=== PATIENT | male | born 1965 | race Caucasian/White ===

== ENCOUNTER 2016-10-30 00:24 | Emergency (ER) | payer MEDICARE, MEDICAID ==
[~2016-10-30 00:24] MED LIST: /CLON1TA PO; /DULO30CA; /MOXI40TA; /SALMDISK; ABIL2TAB; ADV250INH INH; ALBU17IN INH; ALBU17IN2 INH; AMBI10TA; AMBI10TA OR; AMBI10TA PO; AMBI12.52 PO; AMBI5TAB; AMBI6.25 PO; AMBIEN PO; AMITRIP100 PO; AMITRIP50 PO; ASPI81TA83; ATRO1OPD OU; ATROPINE OS; AUGM875T27 PO; BACI500O59 TOP; BACIPOW8 TOP; BACL10TA2; BACTROCREA TOPICALLY; CELE100C; CELE20TA OR; CLON-412 PO; CLON0.2T PO; CLONI1TA PO; DIAZ5TAB; DOXY100T; DULO1CAP3 PO; DULO30CA PO; FLON0.054; FLON1SPR; FLUT50SP; GABA-283 PO; GABA300C3 PO; GABA800T PO; GABA800T3; HABITROL2 TOPICAL; HYDR1CAP25 PO; HYDR1TAB97 PO; HYDR5TAB23 PO; HYDR7.5T38 PO; HYDROCODONE; HYDROCODONE-ACETAMIN; HYDROCODONE-APAP PD; HYDROCODONE/ACETAMIN; ISOP1SOL2 OU; KLON1TAB PO; KLON2TAB PO; LASI40TA; LYRI75CA PO; METH10TA2; METH5TAB2; METH5TAB2 OR; METHODONE; METO5TAB PO; MIRT15TA3 PO; NEUR300C; NEUR300C OR; NEUR600T OR; NEUR600T PO; NEUR800T; NEUR800T PO; NEURONTIN3 PO; NEURONTIN4 PO; NICO21DI4; NORC5TAB PO; NORCOBULK PO; NORCOTAB PO; ONDA1TAB15 PO; ONDA1TAB16 PO; PERC7.5T12 PO; PHENERGA25 PO; PRAZ2CAP PO; PRED1SUS OU; PREDNISOLONE 1% OU; PREDOPD OU; PROA1AER IN; PROZ10CA; QUET1TAB8 PO; QUET300T PO; QUET30TA; SERO1TAB2 PO; SERO200T PO; SERO200T2 PO; SERO400T OR; SPIR1CAP INH; TESS100C PO; TIOT18INH INH; VALI2TAB; VALI5TAB; VICO5TAB; VICO5TAB OR; VICODIN; VICODIN OR; VICODIN PO; VIOXX50 PO; VIST25CA PO; VIST50CA PO; XANA0.25 OR; XANA0.5T OR; ZOFR20TA PO; [UNRECOGNIZED DRUG - CODE] OU; ambien PO
[2016-10-30] MEDS ORDERED: cloNIDine 0.2 MG TAB As Ordered ONE (01:06)
[2016-10-30] MEDS ORDERED: GABAPENTIN 100 MG CAP As Ordered ONE (01:06)
--- NOTE | 2016-10-30 01:21 | EDDOCDS ---
Nurse's Notes [facility] Name: Gavin Marvin Age: 51 yrs Sex: Male : 1965 Arrival Date: 10/30/2016 Time: 00:24 Bed Triage 1 Private MD: Diagnosis: Radiculopathy, lumbosacral region Presentation: 10/30 00:32 Presenting complaint: Patient states: Patient reports needing to get clonidine and jmb gabapentin. Patient reports that his appointment is not until the and doesn't have anyone to fill his scripts. Adult Sepsis Screening: The patient does not have new or worsening altered mentation. Patient's respiratory rate is less than 22. Systolic blood pressure is greater than 100. Adult Sepsis Screening: Patient has a qSOFA score of 0- Negative Sepsis Screen. Suicide/Homicide risk assessment- the patient denies having any suicidal and/or homicidal ideations and does not present with any other emotional, behavioral or mental health complaints. Status: Patient is not a adult services librarian or dependent. Transition of care: patient was not received from another setting of care. 00:32 Acuity: TIMUR Level 5 jmb 00:32 Method Of Arrival: Walkin/Carried/Asstd jmb Triage Assessment: 00:33 General: Appears in no apparent distress. Pain: Denies pain. HIV screening NA for this jmb visit Offered previously. Neurological: Level of Consciousness is awake, alert, obeys commands, Oriented to person, place, time. Respiratory: Airway is patent Respiratory effort is even, unlabored, Respiratory pattern is regular, symmetrical. GI: Abdomen is non- distended. Derm: Skin is pink, warm & dry. Musculoskeletal: Range of motion intact in all extremities. Historical: - Allergies: Toradol (Hives); Tramadol HCl (Hives); - Home Meds: 1. clonidine HCl 0.2 mg Oral tab 1 tab 2 times per day 2. gabapentin 400 mg Oral cap 800 mg twice a day - PMHx: "seizures"; Chronic Back pain; COPD; Depression; Substance Abuse; - PSHx: back surgery; - Social history: Smoking status: Patient uses tobacco products, heavy tobacco smoker. No barriers to communication noted, The patient speaks fluent Faroese, Speaks appropriately for age. - Family history: Not pertinent. - : The pt / caregiver states he / she is not on anticoagulants. Home medication list is obtained from the patient. - Exposure Risk Screening:: None identified. Screenin:11 Screening information is obtained from the patient. Fall risk: At risk due to apparent jmb chemical impairment, Patient smells of etoh, gait unsteady.. Assistance ADL's: requires no assistance with activities of daily living. Abuse/DV Screen: The patient / caregiver reports he/she is: not in a situation that causes fear, pain or injury. Nutritional screening: No deficits noted. Advance Directives: Currently, there is no health care proxy. There is no active DNR order. There is no living will. There is no Power of Assessment Nurse Practitioner. home support is adequate. Assessment: 01:11 General: Appears Patient instructed on discharge instructions. Patient asked if there jmb were any questions regarding discharge, patient stated no. Patient signed discharge instructions, threw his copy in garbage and walked out door. . Vital Signs: 00:33 Weight 81.65 kg (R); Height 5 ft. 4 in. (162.56 cm) (R); Pain 0/10; jmb 00:36 BP 106 / 80; Pulse 127; Resp 20; Temp 97.1; Pulse Ox 94% on R/A; jmb 01:11 BP 110 / 80; Pulse 100; Resp 20; Temp 97.0(O); Pulse Ox 95% on R/A; Pain 0/10; jmb 00:33 Body Mass Index 30.90 (81.65 kg, 162.56 cm) [facility] Vitals: 00:33 Log In Time: October 30, 2016 at 00:34. [facility] ED Course: 00:28 Patient visited by Dianne Peñaloza. gjb 00:28 Patient moved to Waiting gjb 00:32 Triage Initiated jmb 00:47 Kit Lin PA is PHCP. mo1 00:47 Ja Martinez DO is Attending Physician. mo1 00:55 Patient moved to Triage 1 jmb 00:58 Kit Lin PA is PHCP. mo1 00:58 Ja Martinez DO is Attending Physician. mo1 01:04 Patient visited by Kit Lin PA. mo1 01:04 [facility] is Referral Physician. mo1 01:11 The patient / caregiver is instructed regarding the plan of care and ED course. jmb 01:11 No IV's were initiated during this patient's visit. No procedures done that require jmb assistance. Administered Medications: 01:10 Drug: Gabapentin 400 mg [gabapentin 100 mg capsule (4 caps)] Route: PO; jmb 01:11 Drug: cloNIDine 0.2 mg [clonidine HCl 0.2 mg tablet (1 tabs)] Route: PO; jmb Order Results: There are currently no results for this order. Outcome: 01:05 Discharge ordered by Provider. mo1 01:11 Discharge Assessment: Patient awake, alert and oriented x 3. No cognitive and/or jmb functional deficits noted. Patient verbalized understanding of disposition instructions. Patient awake and alert. obeys commands, Oriented to person, place and time. Patient verbalized understanding of disposition instructions. Patient has no functional deficits. patient administered narcotics - no. The following High Risk Discharge criteria are identified: None. Discharged to home ambulatory. Condition: stable. Discharge instructions given to patient, Instructed on discharge instructions, follow up and referral plans. Demonstrated understanding of instructions, Pt was receptive of discharge instructions/ teaching. No special radiology studies were completed. Property sent home with patient. 01:21 Patient left the ED. kimmieb Signatures: Kit Lin PA PA mo1 Carlo Cassidy,RN RN Dianne Stephenson MTDD
--- NOTE | 2016-10-30 01:21 | EDDOCDS ---
Physician Documentation [facility] Name: Gavin Marvin Age: 51 yrs Sex: Male : 1965 Arrival Date: 10/30/2016 Time: 00:24 Bed Triage 1 Private MD: Disposition: 10/30/16 01:05 Discharged to Home/Self Care. Impression: Radiculopathy, lumbosacral region. - Condition is Stable. - Discharge Instructions: Hypertension, Lumbosacral Radiculopathy. - Medication Reconciliation, Local Pharmacy Hours form. - Follow up: [facility]; When: Call to arrange an appointment; Reason: Recheck today's complaints, Continuance of care. - Problem is new. - Symptoms are unchanged. Historical: - Allergies: Toradol (Hives); Tramadol HCl (Hives); - Home Meds: 1. clonidine HCl 0.2 mg Oral tab 1 tab 2 times per day 2. gabapentin 400 mg Oral cap 800 mg twice a day - PMHx: "seizures"; Chronic Back pain; COPD; Depression; Substance Abuse; - PSHx: back surgery; - Social history: Smoking status: Patient uses tobacco products, heavy tobacco smoker. No barriers to communication noted, The patient speaks fluent Scottish, Speaks appropriately for age. - Family history: Not pertinent. - : The pt / caregiver states he / she is not on anticoagulants. Home medication list is obtained from the patient. - Exposure Risk Screening:: None identified. Vital Signs: 10/30 00:33 Weight 81.65 kg / 180.01 lbs (R); Height 5 ft. 4 in. (162.56 cm) (R); Pain 0/10; jmb 00:36 BP 106 / 80; Pulse 127; Resp 20; Temp 97.1; Pulse Ox 94% on R/A; jmb 01:11 BP 110 / 80; Pulse 100; Resp 20; Temp 97.0(O); Pulse Ox 95% on R/A; Pain 0/10; jmb 00:33 Body Mass Index 30.90 (81.65 kg, 162.56 cm) jm MDM: 01:03 cloNIDine 0.2 mg PO once ordered. mo1 01:03 Gabapentin 400 mg PO once ordered. mo1 01:13 Financial registration complete. [facility] Administered Medications: 01:10 Drug: Gabapentin 400 mg [gabapentin 100 mg capsule (4 caps)] Route: PO; jade 01:11 Drug: cloNIDine 0.2 mg [clonidine HCl 0.2 mg tablet (1 tabs)] Route: PO; jade Signatures: Kit Lin PA PA mo1 Carlo Cassidy RN RN Gita Parra [facility] MTDD
--- NOTE | 2016-11-01 02:22 | EDDOCDS ---
Physician Documentation [facility] Name: Gavin Marvin Age: 51 yrs Sex: Male : 1965 Arrival Date: 10/30/2016 Time: 00:24 Bed Triage 1 Private MD: Disposition: 10/30/16 01:05 Discharged to Home/Self Care. Impression: Radiculopathy, lumbosacral region. - Condition is Stable. - Discharge Instructions: Hypertension, Lumbosacral Radiculopathy. - Medication Reconciliation, Local Pharmacy Hours form. - Follow up: [facility]; When: Call to arrange an appointment; Reason: Recheck today's complaints, Continuance of care. - Problem is new. - Symptoms are unchanged. Historical: - Allergies: Toradol (Hives); Tramadol HCl (Hives); - Home Meds: 1. clonidine HCl 0.2 mg Oral tab 1 tab 2 times per day 2. gabapentin 400 mg Oral cap 800 mg twice a day - PMHx: "seizures"; Chronic Back pain; COPD; Depression; Substance Abuse; - PSHx: back surgery; - Social history: Smoking status: Patient uses tobacco products, heavy tobacco smoker. No barriers to communication noted, The patient speaks fluent Moldovan, Speaks appropriately for age. - Family history: Not pertinent. - : The pt / caregiver states he / she is not on anticoagulants. Home medication list is obtained from the patient. - Exposure Risk Screening:: None identified. Vital Signs: 10/30 00:33 Weight 81.65 kg / 180.01 lbs (R); Height 5 ft. 4 in. (162.56 cm) (R); Pain 0/10; jmb 00:36 BP 106 / 80; Pulse 127; Resp 20; Temp 97.1; Pulse Ox 94% on R/A; jmb 01:11 BP 110 / 80; Pulse 100; Resp 20; Temp 97.0(O); Pulse Ox 95% on R/A; Pain 0/10; jmb 00:33 Body Mass Index 30.90 (81.65 kg, 162.56 cm) [facility] MDM: 01:03 cloNIDine 0.2 mg PO once ordered. mo1 01:03 Gabapentin 400 mg PO once ordered. mo1 01:13 Financial registration complete. [facility] 01:38 [facility] Payment Agreement was scanned into [employer] and attached to record. [facility] 10/31 09:51 T-Sheet-- Draft Copy was scanned into [employer] and attached to record. gb Administered Medications: 10/30 01:10 Drug: Gabapentin 400 mg [gabapentin 100 mg capsule (4 caps)] Route: PO; jade 01:11 Drug: cloNIDine 0.2 mg [clonidine HCl 0.2 mg tablet (1 tabs)] Route: PO; jade Signatures: Dalia Brambila, Ruddy Reg gb Kit Lin PA PA mo1 Carlo Cassidy,BRUCE RN Gita Parra [facility] The chart was reviewed and I authenticate all verbal orders and agree with the evaluation and treatment provided.Attachments: 01:38 [facility] Payment Agreement [facility] 10/31 09:51 T-Sheet-- Draft Copy gb Chart Complete MTDD
--- NOTE | 2016-11-01 02:22 | EDDOCDS ---
Physician Documentation [facility] Name: Gavin Marvin Age: 51 yrs Sex: Male : 1965 Arrival Date: 10/30/2016 Time: 00:24 Bed Triage 1 Private MD: Disposition: 10/30/16 01:05 Discharged to Home/Self Care. Impression: Radiculopathy, lumbosacral region. - Condition is Stable. - Discharge Instructions: Hypertension, Lumbosacral Radiculopathy. - Medication Reconciliation, Local Pharmacy Hours form. - Follow up: [facility]; When: Call to arrange an appointment; Reason: Recheck today's complaints, Continuance of care. - Problem is new. - Symptoms are unchanged. Historical: - Allergies: Toradol (Hives); Tramadol HCl (Hives); - Home Meds: 1. clonidine HCl 0.2 mg Oral tab 1 tab 2 times per day 2. gabapentin 400 mg Oral cap 800 mg twice a day - PMHx: "seizures"; Chronic Back pain; COPD; Depression; Substance Abuse; - PSHx: back surgery; - Social history: Smoking status: Patient uses tobacco products, heavy tobacco smoker. No barriers to communication noted, The patient speaks fluent South Korean, Speaks appropriately for age. - Family history: Not pertinent. - : The pt / caregiver states he / she is not on anticoagulants. Home medication list is obtained from the patient. - Exposure Risk Screening:: None identified. Vital Signs: 10/30 00:33 Weight 81.65 kg / 180.01 lbs (R); Height 5 ft. 4 in. (162.56 cm) (R); Pain 0/10; jmb 00:36 BP 106 / 80; Pulse 127; Resp 20; Temp 97.1; Pulse Ox 94% on R/A; jmb 01:11 BP 110 / 80; Pulse 100; Resp 20; Temp 97.0(O); Pulse Ox 95% on R/A; Pain 0/10; jmb 00:33 Body Mass Index 30.90 (81.65 kg, 162.56 cm) [facility] MDM: 01:03 cloNIDine 0.2 mg PO once ordered. mo1 01:03 Gabapentin 400 mg PO once ordered. mo1 01:13 Financial registration complete. [facility] 01:38 [facility] Payment Agreement was scanned into [employer] and attached to record. [facility] 10/31 09:51 T-Sheet-- Draft Copy was scanned into [employer] and attached to record. gb Administered Medications: 10/30 01:10 Drug: Gabapentin 400 mg [gabapentin 100 mg capsule (4 caps)] Route: PO; jade 01:11 Drug: cloNIDine 0.2 mg [clonidine HCl 0.2 mg tablet (1 tabs)] Route: PO; jade Signatures: Dalia Brambila, Ruddy Reg gb Kit Lin PA PA mo1 Carlo Cassidy,BRUCE RN Gita Parra [facility] The chart was reviewed and I authenticate all verbal orders and agree with the evaluation and treatment provided.Attachments: 01:38 [facility] Payment Agreement [facility] 10/31 09:51 T-Sheet-- Draft Copy gb Chart Complete MTDD
--- NOTE | 2016-11-01 02:22 | EDDOCDS ---
Nurse's Notes [facility] Name: Gavin Marvin Age: 51 yrs Sex: Male : 1965 Arrival Date: 10/30/2016 Time: 00:24 Bed Triage 1 Private MD: Diagnosis: Radiculopathy, lumbosacral region Presentation: 10/30 00:32 Presenting complaint: Patient states: Patient reports needing to get clonidine and jmb gabapentin. Patient reports that his appointment is not until the and doesn't have anyone to fill his scripts. Adult Sepsis Screening: The patient does not have new or worsening altered mentation. Patient's respiratory rate is less than 22. Systolic blood pressure is greater than 100. Adult Sepsis Screening: Patient has a qSOFA score of 0- Negative Sepsis Screen. Suicide/Homicide risk assessment- the patient denies having any suicidal and/or homicidal ideations and does not present with any other emotional, behavioral or mental health complaints. Status: Patient is not a loan services professional or dependent. Transition of care: patient was not received from another setting of care. 00:32 Acuity: TIMUR Level 5 jmb 00:32 Method Of Arrival: Walkin/Carried/Asstd jmb Triage Assessment: 00:33 General: Appears in no apparent distress. Pain: Denies pain. HIV screening NA for this jmb visit Offered previously. Neurological: Level of Consciousness is awake, alert, obeys commands, Oriented to person, place, time. Respiratory: Airway is patent Respiratory effort is even, unlabored, Respiratory pattern is regular, symmetrical. GI: Abdomen is non- distended. Derm: Skin is pink, warm & dry. Musculoskeletal: Range of motion intact in all extremities. Historical: - Allergies: Toradol (Hives); Tramadol HCl (Hives); - Home Meds: 1. clonidine HCl 0.2 mg Oral tab 1 tab 2 times per day 2. gabapentin 400 mg Oral cap 800 mg twice a day - PMHx: "seizures"; Chronic Back pain; COPD; Depression; Substance Abuse; - PSHx: back surgery; - Social history: Smoking status: Patient uses tobacco products, heavy tobacco smoker. No barriers to communication noted, The patient speaks fluent Albanian, Speaks appropriately for age. - Family history: Not pertinent. - : The pt / caregiver states he / she is not on anticoagulants. Home medication list is obtained from the patient. - Exposure Risk Screening:: None identified. Screenin:11 Screening information is obtained from the patient. Fall risk: At risk due to apparent jmb chemical impairment, Patient smells of etoh, gait unsteady.. Assistance ADL's: requires no assistance with activities of daily living. Abuse/DV Screen: The patient / caregiver reports he/she is: not in a situation that causes fear, pain or injury. Nutritional screening: No deficits noted. Advance Directives: Currently, there is no health care proxy. There is no active DNR order. There is no living will. There is no Power of Cutlery Grinder. home support is adequate. Assessment: 01:11 General: Appears Patient instructed on discharge instructions. Patient asked if there jmb were any questions regarding discharge, patient stated no. Patient signed discharge instructions, threw his copy in garbage and walked out door. . Vital Signs: 00:33 Weight 81.65 kg (R); Height 5 ft. 4 in. (162.56 cm) (R); Pain 0/10; jmb 00:36 BP 106 / 80; Pulse 127; Resp 20; Temp 97.1; Pulse Ox 94% on R/A; jmb 01:11 BP 110 / 80; Pulse 100; Resp 20; Temp 97.0(O); Pulse Ox 95% on R/A; Pain 0/10; jmb 00:33 Body Mass Index 30.90 (81.65 kg, 162.56 cm) [facility] Vitals: 00:33 Log In Time: October 30, 2016 at 00:34. [facility] ED Course: 00:28 Patient visited by Dianne Peñaloza. gjb 00:28 Patient moved to Waiting gjb 00:32 Triage Initiated jmb 00:47 Kit Lin PA is PHCP. mo1 00:47 Ja Martinez DO is Attending Physician. mo1 00:55 Patient moved to Triage 1 jmb 00:58 Kit Lin PA is PHCP. mo1 00:58 Ja Martinez DO is Attending Physician. mo1 01:04 Patient visited by Kit Lin PA. mo1 01:04 [facility] is Referral Physician. mo1 01:11 The patient / caregiver is instructed regarding the plan of care and ED course. jmb 01:11 No IV's were initiated during this patient's visit. No procedures done that require jmb assistance. 01:38 [facility] Payment Agreement was scanned into [employer] and attached to record. [facility] 10/31 09:51 T-Sheet-- Draft Copy was scanned into [employer] and attached to record. gb Administered Medications: 10/30 01:10 Drug: Gabapentin 400 mg [gabapentin 100 mg capsule (4 caps)] Route: PO; jmb 01:11 Drug: cloNIDine 0.2 mg [clonidine HCl 0.2 mg tablet (1 tabs)] Route: PO; jmb Order Results: There are currently no results for this order. Outcome: 01:05 Discharge ordered by Provider. mo1 01:11 Discharge Assessment: Patient awake, alert and oriented x 3. No cognitive and/or jmb functional deficits noted. Patient verbalized understanding of disposition instructions. Patient awake and alert. obeys commands, Oriented to person, place and time. Patient verbalized understanding of disposition instructions. Patient has no functional deficits. patient administered narcotics - no. The following High Risk Discharge criteria are identified: None. Discharged to home ambulatory. Condition: stable. Discharge instructions given to patient, Instructed on discharge instructions, follow up and referral plans. Demonstrated understanding of instructions, Pt was receptive of discharge instructions/ teaching. No special radiology studies were completed. Property sent home with patient. 01:21 Patient left the ED. kimmieb Signatures: Dalia Brambila, Reg Reg gb Kit Lin PA PA mo1 Carlo Cassidy,RN Gita Mohan [facility] Dianne Peñaloza Chart Complete MTDD
== END 2016-10-30 01:21 | disposition home or self-care (01) ==
LOC: M ED 00:24
DX: Z76.0 Encounter for issue of repeat prescription (principal); R56.9 Unspecified convulsions; G89.29 Other chronic pain; M54.9 Dorsalgia, unspecified; J44.9 Chronic obstructive pulmonary disease, unspecified; F32.9 Major depressive disorder, single episode, unspecified; F19.10 Other psychoactive substance abuse, uncomplicated; Z72.0 Tobacco use; Z79.899 Other long term (current) drug therapy; Z88.5 Allergy status to narcotic agent

== ENCOUNTER 2016-11-13 18:53 | Emergency (ER) | payer MEDICARE, MEDICAID ==
[~2016-11-13 18:53] MED LIST changes: +HYDR-3713 PO; -HYDR1TAB97 PO
[2016-11-13] MEDS ORDERED: AUGMENTIN 875 MG TAB As Ordered ONE (22:00)
[2016-11-13] MEDS ORDERED: METOCLOPRAMIDE 10 MG TAB As Ordered ONE (22:00)
[2016-11-13] MEDS ORDERED: NAPROXEN 250 MG TAB As Ordered ONE (22:00)
[2016-11-13] MEDS ORDERED: ALBUTEROL 90 MCG/ACT 8GM HFA INHALER As Ordered ONE (22:10)
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
--- NOTE | 2016-11-13 22:14 | EDDOCDS ---
Physician Documentation [facility] Name: Gavin Marvin Age: 51 yrs Sex: Male : 1965 Arrival Date: 11/13/2016 Time: 18:53 Bed Triage 1 Private MD: NO PRIMARY PHYSICIAN, . Disposition: 11/13/16 21:58 Discharged to Home/Self Care. Impression: Bitten by dog - RIGHT FOREARM, LEFT BUTTOCK, Nausea with vomiting, unspecified, Headache. - Condition is Stable. - Discharge Instructions: Nausea and Vomiting, Animal Bite. - Prescriptions for Reglan 10 mg Oral Tablet - take 1 tablet by ORAL route every 6 hours As needed take 30 minutes before meals and at bedtime; 20 tablet. Augmentin 875- 125 mg Oral Tablet - take 1 tablet by ORAL route every 12 hours for 10 days; 20 tablet. - Medication Reconciliation, Local Pharmacy Hours form. - Follow up: Emergency Department; When: As needed; Reason: Worsening of conditions. Follow [facility]: [facility]; When: Call to arrange an appointment; Reason: Recheck today's complaints, Continuance of care, To establish care. - Problem is new. - Symptoms are unchanged. Historical: - Allergies: Toradol (Hives); Tramadol HCl (Hives); - Home Meds: 1. clonidine HCl 0.2 mg Oral tab 1 tab 2 times per day 2. gabapentin 400 mg Oral cap 800 mg twice a day - PMHx: "seizures"; Chronic Back pain; COPD; Depression; Substance Abuse; - PSHx: back surgery; - Social history: Smoking status: Patient uses tobacco products, heavy tobacco smoker. No barriers to communication noted, The patient speaks fluent Polish. - Family history: Not pertinent. - : The pt / caregiver states he / she is not on anticoagulants. Home medication list is obtained from the patient. - Exposure Risk Screening:: None identified. Vital Signs: 11/13 18:55 BP 165 / 97; Pulse 118; Resp 18 S; Temp 98.0; Pulse Ox 95% on R/A; Weight 81.65 kg / dd6 180.01 lbs (R); Height 5 ft. 4 in. (162.56 cm) (R); 18:55 Body Mass Index 30.90 (81.65 kg, 162.56 cm) dd6 [place] Coma Score: 19:19 Eye Response: spontaneous(4). Verbal Response: oriented(5). Motor Response: obeys rs3 commands(6). Total: 15. MDM: 21:58 Amoxicillin-Clavulanate 875 mg 1 tabs PO once ordered. dt4 21:58 Naproxen 250 mg PO once; administer with food or milk ordered. dt4 21:58 Metoclopramide 10 mg PO once ordered. dt4 22:08 Ventolin Inhaler 2 puffs Inhalation once; GIVE TO PT TO TAKE HOME, THANK YOU. ordered. dt4 Administered Medications: 22:08 Drug: Metoclopramide 10 mg [metoclopramide 10 mg tablet (1 tabs)] Route: PO; ms2 22:08 Drug: Ventolin 2 puffs [Ventolin HFA 90 mcg/actuation aerosol inhaler (2 puffs)] Route: ms2 Inhalation; 22:09 Drug: Amoxicillin-Clavulanate 1 tabs [amoxicillin 875 mg-potassium clavulanate 125 mg ms2 tablet (1 tabs)] Route: PO; 22:09 Not Given (Patient Refused): Naproxen 250 mg PO once; administer with food or milk ms2 Signatures: Guilherme FalconRN RN ms2 Neli Lala RN RN rs3 Kemi Ortiz PA-C PA-C dt4 MTDD
--- NOTE | 2016-11-15 23:14 | EDDOCDS ---
Physician Documentation [facility] Name: Gavin Marvin Age: 51 yrs Sex: Male : 1965 Arrival Date: 11/13/2016 Time: 18:53 Bed Triage 1 Private MD: NO PRIMARY PHYSICIAN, . Disposition: 11/13/16 21:58 Discharged to Home/Self Care. Impression: Bitten by dog - RIGHT FOREARM, LEFT BUTTOCK, Nausea with vomiting, unspecified, Headache. - Condition is Stable. - Discharge Instructions: Nausea and Vomiting, Animal Bite. - Prescriptions for Reglan 10 mg Oral Tablet - take 1 tablet by ORAL route every 6 hours As needed take 30 minutes before meals and at bedtime; 20 tablet. Augmentin 875- 125 mg Oral Tablet - take 1 tablet by ORAL route every 12 hours for 10 days; 20 tablet. - Medication Reconciliation, Local Pharmacy Hours form. - Follow up: Emergency Department; When: As needed; Reason: Worsening of conditions. Follow [facility]: [facility]; When: Call to arrange an appointment; Reason: Recheck today's complaints, Continuance of care, To establish care. - Problem is new. - Symptoms are unchanged. Historical: - Allergies: Toradol (Hives); Tramadol HCl (Hives); - Home Meds: 1. clonidine HCl 0.2 mg Oral tab 1 tab 2 times per day 2. gabapentin 400 mg Oral cap 800 mg twice a day - PMHx: "seizures"; Chronic Back pain; COPD; Depression; Substance Abuse; - PSHx: back surgery; - Social history: Smoking status: Patient uses tobacco products, heavy tobacco smoker. No barriers to communication noted, The patient speaks fluent Yoruba. - Family history: Not pertinent. - : The pt / caregiver states he / she is not on anticoagulants. Home medication list is obtained from the patient. - Exposure Risk Screening:: None identified. Vital Signs: 11/13 18:55 BP 165 / 97; Pulse 118; Resp 18 S; Temp 98.0; Pulse Ox 95% on R/A; Weight 81.65 kg / dd6 180.01 lbs (R); Height 5 ft. 4 in. (162.56 cm) (R); 18:55 Body Mass Index 30.90 (81.65 kg, 162.56 cm) dd6 [place] Coma Score: 19:19 Eye Response: spontaneous(4). Verbal Response: oriented(5). Motor Response: obeys rs3 commands(6). Total: 15. MDM: 21:58 Amoxicillin-Clavulanate 875 mg 1 tabs PO once ordered. dt4 21:58 Naproxen 250 mg PO once; administer with food or milk ordered. dt4 21:58 Metoclopramide 10 mg PO once ordered. dt4 22:08 Ventolin Inhaler 2 puffs Inhalation once; GIVE TO PT TO TAKE HOME, THANK YOU. ordered. dt4 22:39 [facility] Payment Agreement was scanned into [employer] and attached to record. jp5 :39 Financial registration complete. jp5 11/14 11:08 T-Sheet-- Draft Copy was scanned into [employer] and attached to record. gb Administered Medications: 11/13 22:08 Drug: Metoclopramide 10 mg [metoclopramide 10 mg tablet (1 tabs)] Route: PO; ms2 22:08 Drug: Ventolin 2 puffs [Ventolin HFA 90 mcg/actuation aerosol inhaler (2 puffs)] Route: ms2 Inhalation; 22:09 Drug: Amoxicillin-Clavulanate 1 tabs [amoxicillin 875 mg-potassium clavulanate 125 mg ms2 tablet (1 tabs)] Route: PO; 22:09 Not Given (Patient Refused): Naproxen 250 mg PO once; administer with food or milk ms2 Signatures: Guilherme Falcon RN RN ms2 Dalia Brambila, Reg Reg gb Neli Lala RN RN rs3 Kemi Ortiz PA-C PA-C dt4 Floyd Valdivia jp5 The chart was reviewed and I authenticate all verbal orders and agree with the evaluation and treatment provided.Attachments: :39 [facility] Payment Agreement jp5 11/14 11:08 T-Sheet-- Draft Copy gb Chart Complete MTDD
--- NOTE | 2016-11-15 23:14 | EDDOCDS ---
Physician Documentation [facility] Name: Gavin Marvin Age: 51 yrs Sex: Male : 1965 Arrival Date: 11/13/2016 Time: 18:53 Bed Triage 1 Private MD: NO PRIMARY PHYSICIAN, . Disposition: 11/13/16 21:58 Discharged to Home/Self Care. Impression: Bitten by dog - RIGHT FOREARM, LEFT BUTTOCK, Nausea with vomiting, unspecified, Headache. - Condition is Stable. - Discharge Instructions: Nausea and Vomiting, Animal Bite. - Prescriptions for Reglan 10 mg Oral Tablet - take 1 tablet by ORAL route every 6 hours As needed take 30 minutes before meals and at bedtime; 20 tablet. Augmentin 875- 125 mg Oral Tablet - take 1 tablet by ORAL route every 12 hours for 10 days; 20 tablet. - Medication Reconciliation, Local Pharmacy Hours form. - Follow up: Emergency Department; When: As needed; Reason: Worsening of conditions. Follow up: [facility]; When: Call to arrange an appointment; Reason: Recheck today's complaints, Continuance of care, To establish care. - Problem is new. - Symptoms are unchanged. Historical: - Allergies: Toradol (Hives); Tramadol HCl (Hives); - Home Meds: 1. clonidine HCl 0.2 mg Oral tab 1 tab 2 times per day 2. gabapentin 400 mg Oral cap 800 mg twice a day - PMHx: "seizures"; Chronic Back pain; COPD; Depression; Substance Abuse; - PSHx: back surgery; - Social history: Smoking status: Patient uses tobacco products, heavy tobacco smoker. No barriers to communication noted, The patient speaks fluent Sami. - Family history: Not pertinent. - : The pt / caregiver states he / she is not on anticoagulants. Home medication list is obtained from the patient. - Exposure Risk Screening:: None identified. Vital Signs: 11/13 18:55 BP 165 / 97; Pulse 118; Resp 18 S; Temp 98.0; Pulse Ox 95% on R/A; Weight 81.65 kg / dd6 180.01 lbs (R); Height 5 ft. 4 in. (162.56 cm) (R); 18:55 Body Mass Index 30.90 (81.65 kg, 162.56 cm) dd6 [place] Coma Score: 19:19 Eye Response: spontaneous(4). Verbal Response: oriented(5). Motor Response: obeys rs3 commands(6). Total: 15. MDM: 21:58 Amoxicillin-Clavulanate 875 mg 1 tabs PO once ordered. dt4 21:58 Naproxen 250 mg PO once; administer with food or milk ordered. dt4 21:58 Metoclopramide 10 mg PO once ordered. dt4 22:08 Ventolin Inhaler 2 puffs Inhalation once; GIVE TO PT TO TAKE HOME, THANK YOU. ordered. dt4 22:39 [facility] Payment Agreement was scanned into [employer] and attached to record. jp5 :39 Financial registration complete. jp5 11/14 11:08 T-Sheet-- Draft Copy was scanned into [employer] and attached to record. gb Administered Medications: 11/13 22:08 Drug: Metoclopramide 10 mg [metoclopramide 10 mg tablet (1 tabs)] Route: PO; ms2 22:08 Drug: Ventolin 2 puffs [Ventolin HFA 90 mcg/actuation aerosol inhaler (2 puffs)] Route: ms2 Inhalation; 22:09 Drug: Amoxicillin-Clavulanate 1 tabs [amoxicillin 875 mg-potassium clavulanate 125 mg ms2 tablet (1 tabs)] Route: PO; 22:09 Not Given (Patient Refused): Naproxen 250 mg PO once; administer with food or milk ms2 Signatures: Guilherme Falcon RN RN ms2 Dalia Brambila, Reg Reg gb Neli Lala RN RN rs3 Kemi Ortiz PA-C PA-C dt4 Floyd Valdivia jp5 The chart was reviewed and I authenticate all verbal orders and agree with the evaluation and treatment provided.Attachments: :39 [facility] Payment Agreement jp5 11/14 11:08 T-Sheet-- Draft Copy gb Chart Complete MTDD
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
== END 2016-11-13 22:13 | disposition home or self-care (01) ==
LOC: M ED 18:53
DX: S51.851A Open bite of right forearm, initial encounter (principal); S31.825A Open bite of left buttock, initial encounter; R51 Headache; R11.10 Vomiting, unspecified; W54.0XXA Bitten by dog, initial encounter; Y92.89 Other specified places as the place of occurrence of the external cause; Y93.89 Activity, other specified; Y99.8 Other external cause status; J44.9 Chronic obstructive pulmonary disease, unspecified; G40.909 Epilepsy, unspecified, not intractable, without status epilepticus; M54.9 Dorsalgia, unspecified; F17.200 Nicotine dependence, unspecified, uncomplicated; Z88.5 Allergy status to narcotic agent; Z79.899 Other long term (current) drug therapy

== ENCOUNTER 2016-11-17 15:57 | Emergency (ER) | payer MEDICARE, MEDICAID ==
[2016-11-17] MEDS ORDERED: ACETAMINOPHEN 325 MG TAB As Ordered ONE (17:30)
[2016-11-17] MEDS ORDERED: ONDANSETRON 4 MG ORAL DISINTEGRATING TAB (S0181) As Ordered ONE (17:30)
--- NOTE | 2016-11-17 17:49 | EDDOCDS ---
Physician Documentation [facility] Name: Gavin Marvin Age: 51 yrs Sex: Male : 1965 Arrival Date: 11/17/2016 Time: 15:57 Bed TR3 Private MD: NO PRIMARY PHYSICIAN, . Disposition: 11/17/16 17:31 Discharged to Home/Self Care. Impression: Postconcussional syndrome, Bitten by dog, Abrasion of right upper arm. - Condition is Stable. - Discharge Instructions: Concussion, Adult, Post-Concussion Syndrome. - Prescriptions for ZOFRAN ODT 4 mg - dissolve 1 tablet by ORAL route 4 times per day As needed do not chew, do not swallow whole; 10 tablet. - Medication Reconciliation, Local Pharmacy Hours form. - [facility]; When: Call to arrange an appointment; Reason: Recheck today's complaints, Continuance of care. - Problem is an ongoing problem. - Symptoms are unchanged. Historical: - Allergies: Toradol (Hives); Tramadol HCl (Hives); - Home Meds: 1. clonidine HCl 0.2 mg Oral tab 1 tab 2 times per day (Last dose: Unknown) 2. gabapentin 400 mg Oral cap 800 mg twice a day (Last dose: 11/17/2016) 3. Ambien Unknown Oral once daily 4. Seroquel 300 mg Oral tab 1 tab once daily 5. Zofran Oral as needed - PMHx: "seizures"; Chronic Back pain; COPD; Depression; Substance Abuse; - PSHx: back surgery; carpal tunnel repair; - Social history: Smoking status: Patient uses tobacco products, current every day smoker. No barriers to communication noted, The patient speaks fluent Maltese, Speaks appropriately for age. - Family history: Not pertinent. - : The pt / caregiver states he / she is not on anticoagulants. Home medication list is obtained from the patient, [employer] import data. - Exposure Risk Screening:: None identified. Vital Signs: 11/17 15:59 BP 115 / 75; Pulse 100; Resp 18 S; Temp 99.2(O); Pulse Ox 94% on R/A; Weight 81.65 kg / dd6 180.01 lbs (R); Height 5 ft. 4 in. (162.56 cm) (R); 15:59 Body Mass Index 30.90 (81.65 kg, 162.56 cm) dd6 MDM: 17:27 Ondansetron ODT Oral Disintegrating Tablet 4 mg PO once ordered. mo1 17:28 Acetaminophen Tablet 975 mg PO once ordered. mo1 17:35 Financial registration complete. gb Administered Medications: 17:32 Drug: Ondansetron ODT 4 mg [ondansetron 4 mg disintegrating tablet (1 tabs)] Route: PO; mcp 17:32 Drug: Acetaminophen 975 mg [acetaminophen 325 mg tablet (3 tabs)] Route: PO; [facility] Signatures: Dalia Brambila, Reg Reg gb Myara Holloway RN RN kr3 Kit Lin PA PA mo1 Peters, Mary RN [facility] MTDD
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
--- NOTE | 2016-11-19 18:50 | EDDOCDS ---
Physician Documentation [facility] Name: Gavin Marvin Age: 51 yrs Sex: Male : 1965 Arrival Date: 11/17/2016 Time: 15:57 Bed TR3 Private MD: NO PRIMARY PHYSICIAN, . Disposition: 11/17/16 17:31 Discharged to Home/Self Care. Impression: Postconcussional syndrome, Bitten by dog, Abrasion of right upper arm. - Condition is Stable. - Discharge Instructions: Concussion, Adult, Post-Concussion Syndrome. - Prescriptions for ZOFRAN ODT 4 mg - dissolve 1 tablet by ORAL route 4 times per day As needed do not chew, do not swallow whole; 10 tablet. - Medication Reconciliation, Local Pharmacy Hours form. - Follow up: [facility]; When: Call to arrange an appointment; Reason: Recheck today's complaints, Continuance of care. - Problem is an ongoing problem. - Symptoms are unchanged. Historical: - Allergies: Toradol (Hives); Tramadol HCl (Hives); - Home Meds: 1. clonidine HCl 0.2 mg Oral tab 1 tab 2 times per day (Last dose: Unknown) 2. gabapentin 400 mg Oral cap 800 mg twice a day (Last dose: 11/17/2016) 3. Ambien Unknown Oral once daily 4. Seroquel 300 mg Oral tab 1 tab once daily 5. Zofran Oral as needed - PMHx: "seizures"; Chronic Back pain; COPD; Depression; Substance Abuse; - PSHx: back surgery; carpal tunnel repair; - Social history: Smoking status: Patient uses tobacco products, current every day smoker. No barriers to communication noted, The patient speaks fluent Polish, Speaks appropriately for age. - Family history: Not pertinent. - : The pt / caregiver states he / she is not on anticoagulants. Home medication list is obtained from the patient, [employer] import data. - Exposure Risk Screening:: None identified. Vital Signs: 11/17 15:59 BP 115 / 75; Pulse 100; Resp 18 S; Temp 99.2(O); Pulse Ox 94% on R/A; Weight 81.65 kg / dd6 180.01 lbs (R); Height 5 ft. 4 in. (162.56 cm) (R); 15:59 Body Mass Index 30.90 (81.65 kg, 162.56 cm) dd6 MDM: 17:27 Ondansetron ODT Oral Disintegrating Tablet 4 mg PO once ordered. mo1 17:28 Acetaminophen Tablet 975 mg PO once ordered. mo1 17:35 Financial registration complete. gb 18: [facility] Payment Agreement was scanned into [employer] and attached to record. gb 11/18 03:18 T-Sheet-- Draft Copy was scanned into [employer] and attached to record. hs2 Administered Medications: 11/17 17:32 Drug: Ondansetron ODT 4 mg [ondansetron 4 mg disintegrating tablet (1 tabs)] Route: PO; mcp 17:32 Drug: Acetaminophen 975 mg [acetaminophen 325 mg tablet (3 tabs)] Route: PO; [facility] Signatures: Dalia Brambila, Reg Reg gb Mayra Holloway RN RN kr3 Kit Lin PA PA mo1 Izzy Torres, Reg Reg hs2 Patti Archibald RN [facility] The chart was reviewed and I authenticate all verbal orders and agree with the evaluation and treatment provided.Attachments: 18:09 [facility] Payment Agreement 11/18 03:18 T-Sheet-- Draft Copy hs2 Chart Complete MTDD
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
--- NOTE | 2016-11-19 18:50 | EDDOCDS ---
Physician Documentation [facility] Name: Gavin Marvin Age: 51 yrs Sex: Male : 1965 Arrival Date: 11/17/2016 Time: 15:57 Bed TR3 Private MD: NO PRIMARY PHYSICIAN, . Disposition: 11/17/16 17:31 Discharged to Home/Self Care. Impression: Postconcussional syndrome, Bitten by dog, Abrasion of right upper arm. - Condition is Stable. - Discharge Instructions: Concussion, Adult, Post-Concussion Syndrome. - Prescriptions for ZOFRAN ODT 4 mg - dissolve 1 tablet by ORAL route 4 times per day As needed do not chew, do not swallow whole; 10 tablet. - Medication Reconciliation, Local Pharmacy Hours form. - Follow up: [facility]; When: Call to arrange an appointment; Reason: Recheck today's complaints, Continuance of care. - Problem is an ongoing problem. - Symptoms are unchanged. Historical: - Allergies: Toradol (Hives); Tramadol HCl (Hives); - Home Meds: 1. clonidine HCl 0.2 mg Oral tab 1 tab 2 times per day (Last dose: Unknown) 2. gabapentin 400 mg Oral cap 800 mg twice a day (Last dose: 11/17/2016) 3. Ambien Unknown Oral once daily 4. Seroquel 300 mg Oral tab 1 tab once daily 5. Zofran Oral as needed - PMHx: "seizures"; Chronic Back pain; COPD; Depression; Substance Abuse; - PSHx: back surgery; carpal tunnel repair; - Social history: Smoking status: Patient uses tobacco products, current every day smoker. No barriers to communication noted, The patient speaks fluent Thai, Speaks appropriately for age. - Family history: Not pertinent. - : The pt / caregiver states he / she is not on anticoagulants. Home medication list is obtained from the patient, [employer] import data. - Exposure Risk Screening:: None identified. Vital Signs: 11/17 15:59 BP 115 / 75; Pulse 100; Resp 18 S; Temp 99.2(O); Pulse Ox 94% on R/A; Weight 81.65 kg / dd6 180.01 lbs (R); Height 5 ft. 4 in. (162.56 cm) (R); 15:59 Body Mass Index 30.90 (81.65 kg, 162.56 cm) dd6 MDM: 17:27 Ondansetron ODT Oral Disintegrating Tablet 4 mg PO once ordered. mo1 17:28 Acetaminophen Tablet 975 mg PO once ordered. mo1 17:35 Financial registration complete. gb 18: [facility] Payment Agreement was scanned into [employer] and attached to record. gb 11/18 03:18 T-Sheet-- Draft Copy was scanned into [employer] and attached to record. hs2 Administered Medications: 11/17 17:32 Drug: Ondansetron ODT 4 mg [ondansetron 4 mg disintegrating tablet (1 tabs)] Route: PO; mcp 17:32 Drug: Acetaminophen 975 mg [acetaminophen 325 mg tablet (3 tabs)] Route: PO; [facility] Signatures: Dalia Brambila, Reg Reg gb Mayra Holloway RN RN kr3 Kit Lin PA PA mo1 Izzy Torres, Reg Reg hs2 Patti Archibald RN [facility] The chart was reviewed and I authenticate all verbal orders and agree with the evaluation and treatment provided.Attachments: 18:09 [facility] Payment Agreement 11/18 03:18 T-Sheet-- Draft Copy hs2 Chart Complete MTDD
== END 2016-11-17 17:48 | disposition home or self-care (01) ==
LOC: M ED 15:57
DX: S00.81XA Abrasion of other part of head, initial encounter (principal); S40.811A Abrasion of right upper arm, initial encounter; W54.0XXA Bitten by dog, initial encounter; Y92.019 Unspecified place in single-family (private) house as the place of occurrence of the external cause; Y93.89 Activity, other specified; Y99.8 Other external cause status; F07.81 Postconcussional syndrome; R56.9 Unspecified convulsions; M54.9 Dorsalgia, unspecified; J44.9 Chronic obstructive pulmonary disease, unspecified; F32.9 Major depressive disorder, single episode, unspecified; F19.10 Other psychoactive substance abuse, uncomplicated; F17.210 Nicotine dependence, cigarettes, uncomplicated; Z79.899 Other long term (current) drug therapy; Z88.8 Allergy status to other drugs, medicaments and biological substances

== ENCOUNTER 2016-11-20 15:19 | Emergency (ER) | payer MEDICARE, MEDICAID ==
[2016-11-20] MEDS ORDERED: zolPIDEM TARTRATE 5 MG TAB As Ordered ONE (16:30)
[2016-11-20] MEDS ORDERED: NAPROXEN 250 MG TAB As Ordered ONE (16:30)
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
--- NOTE | 2016-11-20 16:48 | EDDOCDS ---
Physician Documentation [facility] Name: Gavin Marvin Age: 51 yrs Sex: Male : 1965 Arrival Date: 11/20/2016 Time: 15:19 Bed TR8 Private MD: NO PRIMARY PHYSICIAN, . Disposition: 11/20/16 16:22 Discharged to Home/Self Care. Impression: Postconcussional syndrome, Anxiety disorder, unspecified. - Condition is Stable. - Discharge Instructions: Panic Attacks, Post-Concussion Syndrome. - Prescriptions for Naprosyn 500 mg Oral Tablet - take 1 tablet by ORAL route 2 times per day take with food; 30 tablet. - Medication Reconciliation form. - Follow up: [facility]; When: Call to arrange an appointment; Reason: Recheck today's complaints, Continuance of care, To establish care. - Problem is an ongoing problem. - Symptoms are unchanged. Historical: - Allergies: Toradol (Hives); Tramadol HCl (Hives); - Home Meds: 1. Ambien Oral once daily 2. clonidine HCl 0.2 mg Oral tab 1 tab 2 times per day 3. gabapentin 400 mg Oral cap 800 mg twice a day 4. Seroquel 300 mg Oral tab 1 tab once daily 5. Zofran Oral as needed - PMHx: "seizures"; Chronic Back pain; COPD; Depression; Substance Abuse; - PSHx: back surgery; carpal tunnel repair; - Social history: No barriers to communication noted, The patient speaks fluent Yemeni, Speaks appropriately for age, Smoking status: Patient uses tobacco products, heavy tobacco smoker. - Family history: Not pertinent. - : The pt / caregiver states he / she is not on anticoagulants. Home medication list is obtained from the patient. - Exposure Risk Screening:: None identified. Vital Signs: 11/20 15:22 BP 151 / 99; Pulse 86; Resp 18; Temp 96.3; Pulse Ox 96% on R/A; Weight 81.65 kg / dd6 180.01 lbs (R); Height 5 ft. 4 in. (162.56 cm) (R); 16:44 BP 153 / 86; Pulse 78; Resp 18; Temp 97.2; Pulse Ox 94% on R/A; js15 15:22 Body Mass Index 30.90 (81.65 kg, 162.56 cm) dd6 MDM: 16:23 Zolpidem 10 mg PO once ordered. cc10 16:23 Naproxen 500 mg PO once; administer with food or milk ordered. cc10 Administered Medications: 16:37 Drug: Zolpidem 10 mg [zolpidem 5 mg tablet (2 tabs)] Route: PO; js15 16:37 Drug: Naproxen 500 mg [naproxen 250 mg tablet (2 tabs)] Route: PO; js15 Signatures: Ayanna Aguayo,RN RN jo3 Daquan Kelly, PA-C PA-C cc10 Brianda Faulkner,BRUCE RN js15 MTDD
--- NOTE | 2016-11-22 17:48 | EDDOCDS ---
Physician Documentation [facility] Name: Gavin Marvin Age: 51 yrs Sex: Male : 1965 Arrival Date: 11/20/2016 Time: 15:19 Bed TR8 Private MD: NO PRIMARY PHYSICIAN, . Disposition: 11/20/16 16:22 Discharged to Home/Self Care. Impression: Postconcussional syndrome, Anxiety disorder, unspecified. - Condition is Stable. - Discharge Instructions: Panic Attacks, Post-Concussion Syndrome. - Prescriptions for Naprosyn 500 mg Oral Tablet - take 1 tablet by ORAL route 2 times per day take with food; 30 tablet. - Medication Reconciliation form. - Follow up: [facility]; When: Call to arrange an appointment; Reason: Recheck today's complaints, Continuance of care, To establish care. - Problem is an ongoing problem. - Symptoms are unchanged. Historical: - Allergies: Toradol (Hives); Tramadol HCl (Hives); - Home Meds: 1. Ambien Oral once daily 2. clonidine HCl 0.2 mg Oral tab 1 tab 2 times per day 3. gabapentin 400 mg Oral cap 800 mg twice a day 4. Seroquel 300 mg Oral tab 1 tab once daily 5. Zofran Oral as needed - PMHx: "seizures"; Chronic Back pain; COPD; Depression; Substance Abuse; - PSHx: back surgery; carpal tunnel repair; - Social history: No barriers to communication noted, The patient speaks fluent Belgian, Speaks appropriately for age, Smoking status: Patient uses tobacco products, heavy tobacco smoker. - Family history: Not pertinent. - : The pt / caregiver states he / she is not on anticoagulants. Home medication list is obtained from the patient. - Exposure Risk Screening:: None identified. Vital Signs: 11/20 15:22 BP 151 / 99; Pulse 86; Resp 18; Temp 96.3; Pulse Ox 96% on R/A; Weight 81.65 kg / dd6 180.01 lbs (R); Height 5 ft. 4 in. (162.56 cm) (R); 16:44 BP 153 / 86; Pulse 78; Resp 18; Temp 97.2; Pulse Ox 94% on R/A; js15 15:22 Body Mass Index 30.90 (81.65 kg, 162.56 cm) dd6 MDM: 16:23 Zolpidem 10 mg PO once ordered. cc10 16:23 Naproxen 500 mg PO once; administer with food or milk ordered. cc10 16:50 [facility] Payment Agreement was scanned into [email or web address] and attached to record. [facility] 16:50 Financial registration complete. [facility] 11/21 07:55 T-Sheet-- Draft Copy was scanned into [email or web address] and attached to record. se Administered Medications: 11/20 16:37 Drug: Zolpidem 10 mg [zolpidem 5 mg tablet (2 tabs)] Route: PO; js15 16:37 Drug: Naproxen 500 mg [naproxen 250 mg tablet (2 tabs)] Route: PO; js15 Signatures: Ayanna Aguayo,RN RN caterina3 Daquan Kelly, PA-C PA-C cc10 Brianda Faulkner RN RN js15 Dianne Peñaloza Sarah [facility] The chart was reviewed and I authenticate all verbal orders and agree with the evaluation and treatment provided.Attachments: 16:50 [facility] Payment Agreement [facility] 11/21 07:55 T-Sheet-- Draft Copy [facility] Chart Complete MTDD
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
--- NOTE | 2016-11-22 17:48 | EDDOCDS ---
Physician Documentation [facility] Name: Gavin Marvin Age: 51 yrs Sex: Male : 1965 Arrival Date: 11/20/2016 Time: 15:19 Bed TR8 Private MD: NO PRIMARY PHYSICIAN, . Disposition: 11/20/16 16:22 Discharged to Home/Self Care. Impression: Postconcussional syndrome, Anxiety disorder, unspecified. - Condition is Stable. - Discharge Instructions: Panic Attacks, Post-Concussion Syndrome. - Prescriptions for Naprosyn 500 mg Oral Tablet - take 1 tablet by ORAL route 2 times per day take with food; 30 tablet. - Medication Reconciliation form. - Follow up: [facility]; When: Call to arrange an appointment; Reason: Recheck today's complaints, Continuance of care, To establish care. - Problem is an ongoing problem. - Symptoms are unchanged. Historical: - Allergies: Toradol (Hives); Tramadol HCl (Hives); - Home Meds: 1. Ambien Oral once daily 2. clonidine HCl 0.2 mg Oral tab 1 tab 2 times per day 3. gabapentin 400 mg Oral cap 800 mg twice a day 4. Seroquel 300 mg Oral tab 1 tab once daily 5. Zofran Oral as needed - PMHx: "seizures"; Chronic Back pain; COPD; Depression; Substance Abuse; - PSHx: back surgery; carpal tunnel repair; - Social history: No barriers to communication noted, The patient speaks fluent Palauan, Speaks appropriately for age, Smoking status: Patient uses tobacco products, heavy tobacco smoker. - Family history: Not pertinent. - : The pt / caregiver states he / she is not on anticoagulants. Home medication list is obtained from the patient. - Exposure Risk Screening:: None identified. Vital Signs: 11/20 15:22 BP 151 / 99; Pulse 86; Resp 18; Temp 96.3; Pulse Ox 96% on R/A; Weight 81.65 kg / dd6 180.01 lbs (R); Height 5 ft. 4 in. (162.56 cm) (R); 16:44 BP 153 / 86; Pulse 78; Resp 18; Temp 97.2; Pulse Ox 94% on R/A; js15 15:22 Body Mass Index 30.90 (81.65 kg, 162.56 cm) dd6 MDM: 16:23 Zolpidem 10 mg PO once ordered. cc10 16:23 Naproxen 500 mg PO once; administer with food or milk ordered. cc10 16:50 [facility] Payment Agreement was scanned into [employer] and attached to record. [facility] 16:50 Financial registration complete. [facility] [place] 11/21 07:55 T-Sheet-- Draft Copy was scanned into [employer] and attached to record. se Administered Medications: 11/20 16:37 Drug: Zolpidem 10 mg [zolpidem 5 mg tablet (2 tabs)] Route: PO; js15 16:37 Drug: Naproxen 500 mg [naproxen 250 mg tablet (2 tabs)] Route: PO; js15 Signatures: Ayanna Aguayo,RN RN caterina3 Daquan Kelly, PA-C PA-C cc10 Brianda Faulkner RN RN js15 Dianne Peñaloza Sarah [facility] The chart was reviewed and I authenticate all verbal orders and agree with the evaluation and treatment provided.Attachments: 16:50 [facility] Payment Agreement [facility] [place] 11/21 07:55 T-Sheet-- Draft Copy [facility] Chart Complete MTDD
== END 2016-11-20 16:47 | disposition home or self-care (01) ==
LOC: M ED 15:19
DX: F07.81 Postconcussional syndrome (principal); F41.9 Anxiety disorder, unspecified; R56.9 Unspecified convulsions; G89.29 Other chronic pain; M54.9 Dorsalgia, unspecified; J44.9 Chronic obstructive pulmonary disease, unspecified; F32.9 Major depressive disorder, single episode, unspecified; F19.10 Other psychoactive substance abuse, uncomplicated; Z72.0 Tobacco use; Z79.899 Other long term (current) drug therapy; Z88.5 Allergy status to narcotic agent

== ENCOUNTER 2016-11-26 14:19 | Inpatient (IN) | payer MEDICARE, MEDICAID ==
[~2016-11-26] VITALS: Ht 162.6 cm; Wt 73.4 kg
[2016-11-26] MEDS ORDERED: NALOXONE INJ 2 MG/2 ML SYRINGE (J2310) As Ordered ONE (14:38)
[2016-11-26 14:52] LABS: ABG BASE EXCESS 1.5 (-2.0-2.0); ABG DEVICE NASAL CANN; ABG HCO3 27.8 MEQ/L (22.0-26.0); ABG PARTIAL PRESSURE CO2 51.3 mmHg (35.0-45.0); ABG PARTIAL PRESSURE O2 68.4 mmHg (75.0-100.0); ABG STANDARD HCO3 25.7 MEQ/L (22.0-26.0); ABG TOTAL CO2 29.4 MEQ/L (22.0-29.0); ABG pH (ARTERIAL) 7.352 UNITS (7.350-7.450)
[2016-11-26 15:30] LABS: MEAN CORPUSCULAR HEMOGLOBIN 32.5 pg (27.0-33.0); MEAN CORPUSCULAR HGB CONC 33.3 g/dl (32.0-36.5); MEAN CORPUSCULAR VOLUME 97.5 fl (80.0-96.0); RED CELL DISTRIBUTION WIDTH 13.3 % (11.5-14.5); WHITE BLOOD COUNT 7.3 K/mm3 (4.0-10.0)
[2016-11-26 15:57] LABS: ALBUMIN 3.1 GM/DL (3.2-5.2); ALKALINE PHOSPHATASE 75 U/L (45-117); ALT/SGPT 28 U/L (12-78); ANION GAP 7 MEQ/L (8-16); AST/SGOT 18 U/L (15-37); BILIRUBIN,DIRECT < 0.1 MG/DL (0.0-0.2); BILIRUBIN,TOTAL 0.1 MG/DL (0.2-1.0); BLOOD UREA NITROGEN 10 MG/DL (7-18); CALCIUM LEVEL 8.7 MG/DL (8.5-10.1); CARBON DIOXIDE LEVEL 29 MEQ/L (21-32); CHLORIDE LEVEL 109 MEQ/L (98-107); CREATININE FOR GFR 0.88 MG/DL (0.70-1.30); GLOMERULAR FILTRATION RATE > 60.0 (>60); GLUCOSE, FASTING 91 MG/DL (70-105); POTASSIUM SERUM 4.6 MEQ/L (3.5-5.1); SODIUM LEVEL 145 MEQ/L (136-145); TOTAL PROTEIN 6.2 GM/DL (6.4-8.2)
[2016-11-26 18:08] LABS: AMPHETAMINES LEVEL URINE NEGATIVE (NEGATIVE); BENZODIAZEPINES URINE POSITIVE (NEGATIVE); COCAINE METABOLITE URINE NEGATIVE (NEGATIVE); CONTROL LINE INT CTR LINE PRESENT; METHADONE URINE NEGATIVE (NEGATIVE); OPIATES URINE NEGATIVE (NEGATIVE); TRICYCLIC ANTIDEPRESS URINE NEGATIVE (NEGATIVE)
[2016-11-26] MEDS ORDERED: GABA800T PO (21:57)
[2016-11-26] MEDS ORDERED: ZOFR20TA PO (21:57)
[2016-11-26] MEDS ORDERED: SUBO8MIS SL (21:57)
[2016-11-26] MEDS ORDERED: MULTIVITAMIN -ADULT INJECTION 10 ML, THIAMINE INJection 100 MG, FOLIC ACID 1 MG in NS 1... IV ONE (22:00)
[2016-11-26] MEDS ORDERED: IPRATROPIUM 0.5MG/ALBUTEROL 2.5MG INH SOL UD 3ML (DUONEB)(J7620) NEB PRN (22:00)
[2016-11-26] MEDS ORDERED: LORazepam 2 MG/ML VIAL (J2060) IM PRN (22:00)
[2016-11-26] MEDS ORDERED: ONDANSETRON 4MG/2ML VIAL (J2405) IV PRN (22:00)
[2016-11-26] MEDS ORDERED: LORazepam 2 MG/ML VIAL (J2060) IV PRN (22:30)
--- NOTE | 2016-11-26 22:40 | REPUSA ---
CT of the head Clinical history: altered mental status. Technique: Multiple axial CT images were obtained through the head without administration of contrast . Comparison: 06/17/2016 Findings: The ventricles and sulci are symmetric bilaterally. There is no evidence of acute hemorrhag e or infarct. There is no midline shift, mass effect, or extra-axial fluid collection. The osseous st ructures are unremarkable. The visualized paranasal sinuses and mastoid air cells are clear. Impression: Negative study.
--- NOTE | 2016-11-26 23:39 | HPE ---
DATE OF ADMISSION: 11/26/2016 PRIMARY CARE PROVIDER: [facility]. As per previous record, the patient sees Dr. Tavera. CHIEF COMPLAINT: Altered mental status. HISTORY OF THE PRESENT ILLNESS: History is limited secondary to patient's mental status. This is a 51-year-old male patient with underlying medical history of chronic obstructive pulmonary disease (COPD), depression, polysubstance abuse, chronic back pain, also a history of methicillin-resistant Staphylococcus aureus (MRSA) of right knee, chronic back and neck pain, depression, anxiety, umbilical hernia, insomnia. The patient is well known to the emergency room staff, has been presented persistently with substance abuse, as per documentation by emergency medical services (EMS), [facility], patient has been to pharmacy persistent falling to sleep and asked to leave but returned 30 minutes later without remembering what has been asked. As per last visit of the patient to the emergency room, which was on 11/22/2016, the patient reported that he was having spells that he was doing but does not realize what he was doing, jeancarl[place], patient does not eat much. Initially, when the patient was brought to the emergency room, patient was arousable with painful stimuli only. Arterial blood gas (ABG) was done. The patient's mental status improved. Currently, the patient is arousable to verbal stimuli, still a bit lethargic. The patient knows that he is at the hospital, knows that it is 2016 and knows his name but does not know why he is here, but does say that he was having those spells. He thinks he might have seizures. He does report a history of seizures. Denies taking any substance, although the patient has a questionable history of suicidal thoughts but patient denies any suicide attempts or depression. Denies any chest pain. Does report chronic back pain and neck pain. Denies any abdominal pain. Further history very much limited. ALLERGIES: TORADOL and TRAMADOL. PAST MEDICAL HISTORY: Chronic obstructive pulmonary disease (COPD). Depression. Substance abuse. Chronic back pain. Chronic neck pain. Umbilical hernia. Insomnia. History of methicillin-resistant Staphylococcus aureus (MRSA). PAST SURGICAL HISTORY: Spinal fusion in 2006 in [place]. History of carpal tunnel release. History of kidney surgery as a child. History of right ear surgery. SOCIAL HISTORY: Unknown if the patient is homeless or not. The patient reported 1-1/2 packs per day smoke history. Agreeable to nicotine patch. He does not have any family. The patient says he is alone. Denies alcohol use. Denies [id number] drug use, prescription drug abuse. Denies any cocaine, heroin, marijuana use. REVIEW OF SYSTEMS: Limited secondary to patient's mental status but 10-point review of systems is negative except for those mentioned in the history of the present illness. HOME MEDICATIONS: Limited secondary to patient's mental status. The patient initially stated that he does not take any medication but currently patient likely takes Ventolin every 4 hour as needed, Suboxone 8 and 2 mg sublingual twice a day, Flonase Nasal [place] daily, gabapentin 800 mg by mouth twice a day, Zofran 4 mg by mouth twice a day, Seroquel 300 mg by mouth nightly and Advair Diskus 250-50 mcg inhalation twice a day. PHYSICAL EXAMINATION: VITAL SIGNS: Blood pressure 109/67, pulse 60, respirations 18, saturation when the patient is sleeping is 87% on room air. Upon arousal, the patient's saturation went up to 93% on room air. GENERAL: Patient alert and oriented times three but lethargic, answers questions but sluggish. HEENT: Normocephalic, atraumatic. Pupils are dilated but bilaterally reactive to light. CARDIAC: Regular rate and rhythm, mild bradycardic. S1, S2. ABDOMEN: Soft, nontender, nondistended. PULMONARY: Bilaterally clear to auscultation. NEUROLOGIC: No focal deficits. Cranial nerves II-XII grossly intact. Able to move all four extremities. LABORATORY: ABG 7.35, 51.3, 68.4, 27.8. WBC 7.3, hemoglobin and hematocrit 12.1 over 36.2, platelets 524. Chemistry: Sodium 145, potassium 4.6, chloride 109, bicarbonate 29, BUN 10, creatinine 0.88. ASSESSMENT AND PLAN: This is a 51-year-old male patient with underlying medical history of polysubstance abuse, depression, chronic obstructive pulmonary disease (COPD), chronic back pain and chronic neck pain, questionable seizure disorder, admitted with altered mental status and lethargy. PROBLEMS: 1. Altered mental status and lethargy. Metabolic encephalopathy possibly secondary to polysubstance abuse. Urine toxicology appreciated, positive for benzodiazepine. Continue pulse oximetry monitoring, ABGs. Will obtain cardiac enzymes. Given past psychiatric history, will place the patient on one-to-one observation with seizure precautions, elopement precaution, hospital clothes, neurologic checks, suicide precaution and withdrawal precaution. Will consider consulting psychiatry in the morning. Monitor for withdrawal. Banana bag overnight and will place the patient on folic acid, thiamine and multivitamin tomorrow. Withholding oral medications that have sedative effect. Ativan as needed for anxiety, agitation and withdrawal. 2. Chronic obstructive pulmonary disease (COPD). The patient is currently not having any wheeze. Continue nebulizer treatment as needed. Continue Advair. Oxygen supplementation. Monitor pulse oximetry. 3. Depression. Withholding medication that has sedative effect. Unknown if the patient is suicidal or not. As of right now, the patient is a bit lethargic and very poor historian. Will reassess in the morning and consider consulting psychiatry once the patient is more awake. 4. Chronic back and neck pain. The patient is currently comfortable. Withholding oral pain medications given the sedative effect, restart as needed. 5. Polysubstance abuse. Continue to monitor Urine toxicology appreciated. Monitor for withdrawal. Ativan as needed. Social work consulted. 6. Smoking. Counseling provided. The patient is agreeable for nicotine patch. 7. Deep vein thrombosis (DVT) prophylaxis. Heparin subcutaneously. DISPOSITION PLANNING: Pending clinical improvement. Will monitor the patient overnight. Consider psychiatric consultation.
[2016-11-27] VITALS (18 sets, daily range): BP systolic 100–114; BP diastolic 61–70; O2SAT 87–96
[2016-11-27] MEDS ORDERED: IPRATROPIUM 0.5MG/ALBUTEROL 2.5MG INH SOL UD 3ML (DUONEB)(J7620) As Ordered ONE (02:05)
[2016-11-27] MEDS: IPRATROPIUM 0.5MG/ALBUTEROL 2.5MG INH SOL UD 3ML (DUONEB)(J7620) NEB SCH ×4 (02:15→20:00)
[2016-11-27 05:17] LABS: MEAN CORPUSCULAR HEMOGLOBIN 32.7 pg (27.0-33.0); MEAN CORPUSCULAR HGB CONC 33.3 g/dl (32.0-36.5); MEAN CORPUSCULAR VOLUME 98.3 fl (80.0-96.0); RED CELL DISTRIBUTION WIDTH 13.4 % (11.5-14.5); WHITE BLOOD COUNT 7.3 K/mm3 (4.0-10.0)
[2016-11-27 05:28] LABS: ANION GAP 5 MEQ/L (8-16); BLOOD UREA NITROGEN 9 MG/DL (7-18); CALCIUM LEVEL 8.5 MG/DL (8.5-10.1); CARBON DIOXIDE LEVEL 31 MEQ/L (21-32); CHLORIDE LEVEL 111 MEQ/L (98-107); CREATININE FOR GFR 0.75 MG/DL (0.70-1.30); GLOMERULAR FILTRATION RATE > 60.0 (>60); GLUCOSE, FASTING 82 MG/DL (70-105); MAGNESIUM LEVEL 1.8 MG/DL (1.8-2.4); POTASSIUM SERUM 3.9 MEQ/L (3.5-5.1); SODIUM LEVEL 147 MEQ/L (136-145)
[2016-11-27] MEDS: HEPARIN SOD (PORCINE) 5000 UNITS/ML VIAL SC SCH ×3 (06:00→22:08)
[2016-11-27] MEDS ORDERED: HEPARIN SOD (PORCINE) 5000 UNITS/ML VIAL As Ordered ONE (06:15)
[2016-11-27] MEDS: ADVAIR DISKUS 250/50 INH PWD INH SCH ×2 (08:30→23:56)
[2016-11-27] MEDS: THIAMINE 100 MG TAB PO SCH (08:31)
[2016-11-27] MEDS: MULTIVITAMINS/MINERALS THERAP 1 TAB PO SCH (08:31)
[2016-11-27] MEDS: SENOKOT S TAB PO SCH ×2 (08:32→20:54)
[2016-11-27] MEDS: FOLIC ACID 1 MG TAB PO SCH (08:32)
[2016-11-27] MEDS: NICOTINE 21MG/24HR 1 EA TRANSDERMAL TD SCH (08:32)
--- NOTE | 2016-11-27 11:11 | REP ---
PA and lateral chest: Comparisons are 09/06/2016 and 03/04/2015. There are subsegmental patchy infiltrates in the right upper lobe and in the lower lobes bilaterally as changes from the prior studies. There are no pleural effusions. No masses. There is a small stable granuloma peripherally in the right lung. I suspect a nondisplaced healing fracture posterior laterally in the right ninth rib as an interval change. Cardiac size is normal. The leslie appear enlarged compared to prior studies. Mediastinum and bony thorax are unremarkable. Signed by Kamari Berumen MD 11/27/2016 10:17 A
--- NOTE | 2016-11-27 12:57 | EDDOCDS ---
Physician Documentation [facility] Name: Gavin Marvin Age: 51 yrs Sex: Male : 1965 Arrival Date: 11/26/2016 Time: 14:19 Bed Admit Hold MD: Disposition: 11/26/16 21:31 Hospitalization ordered by Melinda Campo for Inpatient Admission. Preliminary diagnosis is Poisoning by benzodiazepines, undetermined - history of benzo abuse. - Bed requested for PCU. - Status is Inpatient Admission. hs1 - Condition is Stable. - Problem is an acute exacerbation. - Symptoms have improved. HPI: 11/26 14:45 This 51 yrs old Male presents to ER via Ambulance with complaints of Altered pc Mental Status. 14:45 The history is obtained from the patient, EMS providers. A reliable history and/or pc examination was not able to be obtained, due to the patient's level of intoxication. The patient presents with decreased mental status, decreased responsiveness, trouble concentrating, trouble ambulating. Possible causes include drug use, known BDZ and opiate abuser. The patient's baseline is described as alert and fully oriented, and walks without assistance. He was at a local pharmacy and was noticed to be stumbling, unable to stay awake, slurring his words, so staff called EMS. 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 He is not able to answer questions without repeated stimulation.. The patient has experienced similar episodes in the past, multiple times. The patient has been recently seen by Addictions clinic, with 4 RXs for 2 weeks of Suboxone in the past 2 weeks, per [facility] EMR. . Historical: - Allergies: Toradol (Hives); Tramadol HCl (Hives); - Home Meds: 1. Ambien 10 mg oral tab (Last dose: 11/25/2016) 2. clonidine HCl 0.2 mg Oral tab 1 tab 2 times per day 3. gabapentin 400 mg Oral cap 800 mg twice a day 4. Seroquel 300 mg Oral tab 1 tab once daily - PMHx: COPD; Depression; Substance Abuse; Chronic Back pain; - PSHx: back surgery; carpal tunnel repair; - The history from nurses notes was reviewed: and I agree with what is documented. - Social history: Smoking status: Patient uses tobacco products, current every day smoker. Not able to communicate due to their condition. - : The pt / caregiver states he / she is not on anticoagulants. Home medication list is obtained from [employer] import data. - Hospitalizations: : No recent hospitalization is reported. - Exposure Risk Screening:: None identified. - Immunization history:: Last tetanus immunization: up to date. - Family history: Not pertinent. - Social history:: the patient smokes cigarettes the patient drinks alcohol, the patient uses illicit drugs, including opiates, BDZs. ROS: 14:45 Unable to reliably obtain pc Exam: 14:45 General Appearance: no acute distress, lethargic. pc 14:45 EENT: ears, nose and throat normal, pharynx normal, mucous membranes moist pupils 3mm, sluggish. 14:45 Neck: supple, non-tender, no masses are appreciated. 14:45 Respiratory: breath sounds are normal, maintaining his airway, RR 14, PO 88 on RA. 14:45 CVS: regular rhythm, normal S1 and S2, no murmurs, strong peripheral pulses, normal capillary refill, the patient is bradycardic, at 56 bpm. 14:45 Abdomen: soft, non-tender, no organomegaly, normal bowel sounds. 14:45 Back: normal inspection. 14:45 Skin: skin color is normal, warm, dry. 14:45 Extremities: The extremities have a grossly normal appearance, are non-tender, without acute ROM abnormalities. 14:45 Neuro: cranial nerves normal as tested, no motor deficits, no sensory deficits, Mentation: slow to respond. Vital Signs: 14:26 BP 97 / 56 (auto/); jjr 14:28 Pulse 60 MON; Pulse Ox 89% ; jjr 14:29 BP 97 / 56; Pulse 56; Resp 14; Temp 97.1(O); Pulse Ox 92% on R/A; Weight 81.65 kg / jrd 180.01 lbs (R); Height 5 ft. 4 in. (162.56 cm); 14:35 Pulse 58 MON; Pulse Ox 91% ; jjr 14:35 BP 99 / 60 (auto/); jjr 14:41 BP 97 / 53 (auto/); jjr 14:41 Pulse 60 MON; Pulse Ox 90% ; jjr 14:54 BP 101 / 55 (auto/); jjr 14:54 Pulse 60 MON; Pulse Ox 94% on R/A; jjr 15:46 BP 112 / 62 (auto/); jjr 15:46 Pulse 56 MON; Pulse Ox 92% ; jjr 16:16 BP 111 / 71 (auto/); jjr 16:16 Pulse 58 MON; jjr 16:46 BP 103 / 68 (auto/); jjr 16:46 Pulse 50 MON; jjr 17:32 BP 78 / 52 (auto/); jjr 17:33 BP 85 / 52 (auto/); jjr 17:35 BP 86 / 52 (auto/); Pulse 50; Resp 18; Pulse Ox 92% on R/A; jjr 17:50 BP 124 / 68 (auto/); jjr 17:50 Pulse 66 MON; Pulse Ox 99% on R/A; jjr 17:57 BP 111 / 68 (auto/); jjr 17:57 Pulse 62 MON; Pulse Ox 94% ; jjr 18:04 Pulse 56 MON; Resp 18; Pulse Ox 92% on R/A; jjr 18:12 BP 109 / 67 (auto/); jjr 18:12 Pulse 60 MON; Pulse Ox 92% ; jjr 18:27 BP 98 / 67 (auto/); jjr 18:27 Pulse 58 MON; Resp 18; Pulse Ox 90% on R/A; jjr 18:42 BP 101 / 67 (auto/); jjr 18:42 Pulse 60 MON; Pulse Ox 90% ; jjr 18:57 BP 107 / 70 (auto/); jjr 18:57 Pulse 58 MON; Pulse Ox 89% ; jjr 19:12 Pulse 58 MON; Pulse Ox 89% ; cf2 19:12 BP 102 / 72 (auto/); cf2 19:27 BP 105 / 70 (auto/); cf2 19:28 Pulse 62 MON; Pulse Ox 90% ; cf2 19:42 Pulse 60 MON; Pulse Ox 90% ; cf2 19:42 BP 99 / 66 (auto/); cf2 19:57 Pulse 56 MON; Pulse Ox 89% ; cf2 19:57 BP 103 / 63 (auto/); cf2 20:12 Pulse 60 MON; Pulse Ox 87% ; cf2 20:12 BP 106 / 71 (auto/); cf2 20:27 BP 108 / 66 (auto/); cf2 20:28 Pulse 60 MON; Pulse Ox 87% ; cf2 20:42 BP 111 / 68 (auto/); cf2 20:43 Pulse 58 MON; Pulse Ox 89% ; cf2 22:12 BP 107 / 68 (auto/); cf2 22:12 Pulse 56 MON; Pulse Ox 87% ; cf2 22:12 BP 114 / 68; cf2 22:28 Pulse 50 MON; Pulse Ox 92% ; cf2 22:35 Pulse 54 MON; Pulse Ox 89% ; cf2 22:43 Pulse 52 MON; Pulse Ox 89% ; cf2 22:49 Pulse 48 MON; Pulse Ox 90% ; cf2 22:54 Pulse 52 MON; Pulse Ox 89% ; cf2 23:00 Pulse 52 MON; Pulse Ox 92% ; cf2 23:06 Pulse 54 MON; Pulse Ox 90% ; cf2 23:11 Pulse 52 MON; Pulse Ox 89% ; cf2 23:17 Pulse 54 MON; Pulse Ox 88% ; cf2 23:24 Pulse 56 MON; Pulse Ox 88% ; cf2 23:28 Pulse 50 MON; Pulse Ox 91% ; cf2 14:29 Body Mass Index 30.90 (81.65 kg, 162.56 cm) jrd 14:29 Patient was unable to verbilize a pain scale rating but indicate his neck hurt jrd MDM: 14:33 Oxygen at 2L/min via NC ordered. pc 14:33 IV Saline Lock ordered. pc 14:33 naloxone 2 mg IVP once ordered. pc 14:33 Call Respiratory ordered. pc 14:34 -Arterial Blood Gas Ordered. EDMS 14:39 Call Respiratory complete. deg 14:45 Differential Diagnosis: AMS, likely due to mixed drug abuse; hypoxemia. Plan: labs, pc meds. 15:09 -Arterial Blood Gas Reviewed. pc 15:09 Straight cath ordered. pc 15:10 Acetaminophen Level Ordered. EDMS 15:10 Basic Metabolic Profile Ordered. EDMS 15:10 Complete Blood Count Ordered. EDMS 15:10 Drug Eval Toxicology ED Only Ordered. EDMS 15:10 Ethyl Alcohol (ethanol) Ordered. EDMS 15:10 Liver Profile Ordered. EDMS 15:10 Salicylate Level Ordered. EDMS 15:10 Thyroid Stimulating Hormone Ordered. EDMS 18:00 Acetaminophen Level Reviewed. pc 18:00 Basic Metabolic Profile Reviewed. pc 18:00 Complete Blood Count Reviewed. pc 18:00 Liver Profile Reviewed. pc 18:00 Salicylate Level Reviewed. pc 18:00 Ethyl Alcohol (ethanol) Reviewed. pc 18:00 Thyroid Stimulating Hormone Reviewed. pc 18:20 Financial registration complete. gjb 18:21 Drug Eval Toxicology ED Only Reviewed. pc 18:40 [facility] Payment Agreement was scanned into [facility] and attached to record. gjb 21:29 BED REQUEST+ADM ordered. EDMS 22:07 Admission / Observation Status ordered. EDMS 22:07 CT Head without contrast Ordered. EDMS 22:07 REGULAR DIET PED PLASTIC [place] ordered. EDMS 22:08 COMPLETE BLOOD COUNT Ordered. EDMS 22:08 BASIC METABOLIC PROFILE Ordered. EDMS 22:08 MAGNESIUM LEVEL Ordered. EDMS 22:10 PHYSICAL THERAPY EVAL & TREAT ordered. EDMS 22:54 CARDIAC MARKER PANEL Ordered. EDMS 02/03 03:19 CARDIAC MARKER PANEL Ordered. EDMS 06:43 Acetaminophen Level Reviewed. mm11 06:43 Basic Metabolic Profile Reviewed. mm11 06:43 Liver Profile Reviewed. mm11 06:43 Salicylate Level Reviewed. mm11 06:43 COMPLETE BLOOD COUNT Reviewed. mm11 06:43 BASIC METABOLIC PROFILE Reviewed. mm11 06:43 CARDIAC MARKER PANEL Reviewed. mm11 06:43 Ethyl Alcohol (ethanol) Reviewed. mm11 06:43 Thyroid Stimulating Hormone Reviewed. mm11 06:43 MAGNESIUM LEVEL Reviewed. mm11 06:43 CARDIAC MARKER PANEL Reviewed. mm11 06:43 CT Head without contrast Reviewed. mm11 09:15 Chest, 2 view PA, Lat Ordered. EDMS 11:48 T-Sheet-- Draft Copy was scanned into [facility] and attached to record. gb 11:49 Radiology Report was scanned into [facility] and attached to record. gb Administered Medications: 11/26 14:40 Drug: naloxone 2 mg [naloxone 1 mg/mL injection syringe (2 mL)] Route: IVP; Site: left jjr forearm; Signatures: Dispatcher [employer] EDMS Jan Campuzano MD MD pc Murray, Denise, Internal Corrosion Specialist Unit deg Dalia Brambila, Reg Reg gb Freddie Armstrong DO DO mm11 Keila Matamoros RN RN jjr Idalia Nagel RN RN hs1 Ana Calhoun RN RN sls2 Dianne Peñaloza The chart was reviewed and I authenticate all verbal orders and agree with the evaluation and treatment provided.Corrections: (The following items were deleted from the chart) 22:53 22:21 CARDIAC MARKER PANEL ordered. EDMS EDMS 11/27 03:18 11/26 22:21 CARDIAC MARKER PANEL ordered. EDMS EDMS 11/27 11:28 11/26 22:07 ELECTROCARDIOGRAM ADULT ordered. EDLA EDLA Attachments: 18:40 [facility] Payment Agreement gjb 11/27 11:48 T-Sheet-- Draft Copy gb MTDD
--- NOTE | 2016-11-27 12:57 | EDDOCDS ---
Nurse's Notes [facility] Name: Gavin Marvin Age: 51 yrs Sex: Male : 1965 Arrival Date: 11/26/2016 Time: 14:19 Bed Admit Hold Private MD: Diagnosis: Poisoning by benzodiazepines, undetermined-history of benzo abuse Presentation: 11/26 14:22 Presenting complaint: EMS states: phoned to [facility] by [employer] pt falling asleep jjr in store asked to leave then returned 30 minutes later without remembering being asked to leave, FSBS 118. Adult Sepsis Screening: Patient has new or worsening altered mentation (1 point). Patient's respiratory rate is less than 22. Systolic blood pressure is greater than 100. Patient has a qSOFA score of 1- Negative Sepsis Screen. 14:22 Acuity: TIMUR Level 3 [facility] 14:22 Method Of Arrival: Ambulance [facility] 21:12 Suicide/Homicide risk assessment- the patient denies having any suicidal and/or cf2 homicidal ideations and does not present with any other emotional, behavioral or mental health complaints. Status: Unknown if community service officer or dependent. Transition of care: patient was not received from another setting of care. Triage Assessment: 14:31 General: Appears in no apparent distress, Behavior is drowsy. Pain: Location: back of jjr neck. HIV screening NA for this visit Offered previously. Neurological: Level of Consciousness is lethargic, Cnc Lathe Machine Operator are equal bilaterally Speech is normal. Respiratory: Airway is patent Respiratory effort is even, unlabored, Respiratory pattern is regular. Derm: No deficits noted. Historical: - Allergies: Toradol (Hives); Tramadol HCl (Hives); - Home Meds: 1. Ambien 10 mg oral tab (Last dose: 11/25/2016) 2. clonidine HCl 0.2 mg Oral tab 1 tab 2 times per day 3. gabapentin 400 mg Oral cap 800 mg twice a day 4. Seroquel 300 mg Oral tab 1 tab once daily - PMHx: COPD; Depression; Substance Abuse; Chronic Back pain; - PSHx: back surgery; carpal tunnel repair; - The history from nurses notes was reviewed: and I agree with what is documented. - Social history: Smoking status: Patient uses tobacco products, current every day smoker. Not able to communicate due to their condition. - : The pt / caregiver states he / she is not on anticoagulants. Home medication list is obtained from [employer] data. - Hospitalizations: : No recent hospitalization is reported. - Exposure Risk Screening:: None identified. - Immunization history:: Last tetanus immunization: up to date. - Family history: Not pertinent. - Social history:: the patient smokes cigarettes the patient drinks alcohol, the patient uses illicit drugs, including opiates, BDZs. Screenin:21 Fall Risk. jjr 16:10 Screening information is obtained from the patient. Fall risk: At risk due to apparent jjr cognitive impairment, The following interventions are performed due to a positive Fall Risk Screen: added to special handling. Assistance ADL's: requires no assistance with activities of daily living. Abuse/DV Screen: The patient / caregiver reports he/she is: not in a situation that causes fear, pain or injury. Nutritional screening: No deficits noted. Advance Directives: There is no active DNR order. home support is adequate. Assessment: 15:42 General: Appears in no apparent distress, pt falls asleep mid sentence will awaken to jr voice, refuses NC pulls off his face, reports pain to back of neck. General: shirt pants and socks removed to check for any medication skin patches. Respiratory: Airway is patent Respiratory effort is even, unlabored, Respiratory pattern is regular. Derm: Skin is pink, warm & dry. 17:06 General: Appears to be sleeping. will arouse to loud voice and gentle touch pt adamant jjr he does not want reddy catheter. 17:40 General: pt becomes hostile when told must have urine sample aware of refusal and jr current bp. 17:53 General: pt physically restrained by Donita Reddy and Hiral so that this jr ad writer could perform straight catheter, return of straw colored urine. 18:34 General: Appears to be sleeping. jjr 20:53 Reassessment: Patient appears in no apparent distress at this time. Patient states cf2 feeling better. Patient states symptoms have improved. Adult Sepsis Screening: The patient does not have new or worsening altered mentation. Patient's respiratory rate is less than 22. Systolic blood pressure is greater than 100. Patient has a qSOFA score of 0- Negative Sepsis Screen. Pain: Denies pain. Neurological: No deficits noted. EENT: No deficits noted. Cardiovascular: No deficits noted. Respiratory: Airway is patent Respiratory effort is even, unlabored, Respiratory pattern is regular. GI: No deficits noted. : No deficits noted. Derm: No deficits noted. Skin is pink, warm & dry. Musculoskeletal: No deficits noted. Injury Description: No known injury. 23:31 Reassessment: Patient appears in no apparent distress at this time. Patient states cf2 feeling better. Patient states symptoms have improved. Vital Signs: 14:26 BP 97 / 56 (auto/); jjr 14:28 Pulse 60 MON; Pulse Ox 89% ; jjr 14:29 BP 97 / 56; Pulse 56; Resp 14; Temp 97.1(O); Pulse Ox 92% on R/A; Weight 81.65 kg (R); jrd Height 5 ft. 4 in. (162.56 cm); 14:35 Pulse 58 MON; Pulse Ox 91% ; jjr 14:35 BP 99 / 60 (auto/); jjr 14:41 BP 97 / 53 (auto/); jjr 14:41 Pulse 60 MON; Pulse Ox 90% ; jjr 14:54 BP 101 / 55 (auto/); jjr 14:54 Pulse 60 MON; Pulse Ox 94% on R/A; jjr 15:46 BP 112 / 62 (auto/); jjr 15:46 Pulse 56 MON; Pulse Ox 92% ; jjr 16:16 BP 111 / 71 (auto/); jjr 16:16 Pulse 58 MON; jjr 16:46 BP 103 / 68 (auto/); jjr 16:46 Pulse 50 MON; jjr 17:32 BP 78 / 52 (auto/); jjr 17:33 BP 85 / 52 (auto/); jjr 17:35 BP 86 / 52 (auto/); Pulse 50; Resp 18; Pulse Ox 92% on R/A; jjr 17:50 BP 124 / 68 (auto/); jjr 17:50 Pulse 66 MON; Pulse Ox 99% on R/A; jjr 17:57 BP 111 / 68 (auto/); jjr 17:57 Pulse 62 MON; Pulse Ox 94% ; jjr 18:04 Pulse 56 MON; Resp 18; Pulse Ox 92% on R/A; jjr 18:12 BP 109 / 67 (auto/); jjr 18:12 Pulse 60 MON; Pulse Ox 92% ; jjr 18:27 BP 98 / 67 (auto/); jjr 18:27 Pulse 58 MON; Resp 18; Pulse Ox 90% on R/A; jjr 18:42 BP 101 / 67 (auto/); jjr 18:42 Pulse 60 MON; Pulse Ox 90% ; jjr 18:57 BP 107 / 70 (auto/); jjr 18:57 Pulse 58 MON; Pulse Ox 89% ; jjr 19:12 Pulse 58 MON; Pulse Ox 89% ; cf2 19:12 BP 102 / 72 (auto/); cf2 19:27 BP 105 / 70 (auto/); cf2 19:28 Pulse 62 MON; Pulse Ox 90% ; cf2 19:42 Pulse 60 MON; Pulse Ox 90% ; cf2 19:42 BP 99 / 66 (auto/); cf2 19:57 Pulse 56 MON; Pulse Ox 89% ; cf2 19:57 BP 103 / 63 (auto/); cf2 20:12 Pulse 60 MON; Pulse Ox 87% ; cf2 20:12 BP 106 / 71 (auto/); cf2 20:27 BP 108 / 66 (auto/); cf2 20:28 Pulse 60 MON; Pulse Ox 87% ; cf2 20:42 BP 111 / 68 (auto/); cf2 20:43 Pulse 58 MON; Pulse Ox 89% ; cf2 22:12 BP 107 / 68 (auto/); cf2 22:12 Pulse 56 MON; Pulse Ox 87% ; cf2 22:12 BP 114 / 68; cf2 22:28 Pulse 50 MON; Pulse Ox 92% ; cf2 22:35 Pulse 54 MON; Pulse Ox 89% ; cf2 22:43 Pulse 52 MON; Pulse Ox 89% ; cf2 22:49 Pulse 48 MON; Pulse Ox 90% ; cf2 22:54 Pulse 52 MON; Pulse Ox 89% ; cf2 23:00 Pulse 52 MON; Pulse Ox 92% ; cf2 23:06 Pulse 54 MON; Pulse Ox 90% ; cf2 23:11 Pulse 52 MON; Pulse Ox 89% ; cf2 23:17 Pulse 54 MON; Pulse Ox 88% ; cf2 23:24 Pulse 56 MON; Pulse Ox 88% ; cf2 23:28 Pulse 50 MON; Pulse Ox 91% ; cf2 14:29 Body Mass Index 30.90 (81.65 kg, 162.56 cm) jrd 14:29 Patient was unable to verbilize a pain scale rating but indicate his neck hurt jrd Vitals: 14:27 Log In Time N/A - ambulance arrival. jr ED Course: 14:20 Patient visited by Keira Iglesias, Curriculum Development Coordinator. deg 14:20 Patient moved to Waiting deg 14:21 Patient moved to 15 deg 14:22 Jan Campuzano MD is Attending Physician. pc 14:22 Patient visited by Jan Campuzano MD. pc 14:26 Triage Initiated jjr 14:29 Unable to orient pt to ED due to medical condition. Patient has correct armband on for jrd positive identification. Placed in gown. Bed in low position. Call light in reach. Side rails up X2. radiation monitor on. Pulse ox on. NIBP on. 14:30 Patient visited by Cody Matt PCA. jrd 14:39 Patient visited by Cody Matt PCA. jrd 14:47 -Arterial Blood Gas Sent. js11 15:43 The patient / caregiver is instructed regarding the plan of care and ED course. jjr 15:44 Patient visited by Keila Matamoros, BRUCE. jjr 15:44 Inserted saline lock: 20 gauge in left forearm and blood collected. Labs drawn. (by ED jjr staff). Sent per order to lab. 16:47 Patient visited by Jan Campuzano MD. pc 17:07 Patient visited by Keila Matamoros, BRUEC. jjr 17:40 Patient visited by Keila Matamoros, BRUCE. jjr 17:54 Straight cath inserted 16 Fr. Specimen obtained. returned clear yellow urine. jjr 17:55 Patient visited by Keila Matamoros, BRUCE. jjr 18:34 Patient visited by Keila Matamoros, BRUCE. jjr 18:40 [facility] Payment Agreement was scanned into [employer] and attached to record. gjb 19:02 Lilo Montoya,RN is Primary Nurse. cf2 19:02 Patient visited by Lilo Montoya RN. cf2 19:12 Attending Physician role handed off by Jan Campuzano MD mm11 19:12 Freddie Armstrong DO is Attending Physician. mm11 19:12 No procedures done that require assistance. cf2 20:08 Patient visited by Mirian Barksdale. nb2 20:39 Patient visited by Lilo Montoya RN. cf2 20:53 Patient visited by Lilo Montoya RN. cf2 21:12 Patient visited by Lilo Montoya RN. cf2 21:17 Patient visited by Lilo Montoya RN. cf2 21:31 Melinda Campo is Hospitalizing Provider. mm11 22:23 Patient moved to Admit Hold sls1 23:06 CT Head without contrast Returned. EDMS 23:19 Patient visited by Lilo Montoya RN. cf2 23:30 Patient visited by Lilo Montoya RN. cf2 23:36 Patient moved to 20 cf2 02/03 00:30 Patient moved to Admit Hold sls1 11:15 Chest, 2 view PA, Lat Returned. EDMS 11:41 Patient visited by Carmen Sen PCA. smj 11:48 T-Sheet-- Draft Copy was scanned into [employer] and attached to record. gb 11:49 Radiology Report was scanned into [employer] and attached to record. gb Administered Medications: 11/26 14:40 Drug: naloxone 2 mg [naloxone 1 mg/mL injection syringe (2 mL)] Route: IVP; Site: left jjr forearm; RT: 14:47 ABG's drawn from right radial artery allens test done and positive pressure held for 5 js11 minutes no bleeding noted specimen sent pt. tolerated well. Order Results: Lab Order: -Arterial Blood Gas; SPEC'M 11/26/16 14:41 Test: ABG pH (ARTERIAL); Value: 7.352; Range: 7.350-7.450; Units: UNITS; Status: F Test: ABG PARTIAL PRESSURE CO2; Value: 51.3; Range: 35.0-45.0; Abnormal: Above high normal; Units: mmHg; Status: F Test: ABG PARTIAL PRESSURE O2; Value: 68.4; Range: 75.0-100.0; Abnormal: Below low normal; Units: mmHg; Status: F Test: ABG TOTAL CO2; Value: 29.4; Range: 22.0-29.0; Abnormal: Above high normal; Units: MEQ/L; Status: F Test: ABG HCO3; Value: 27.8; Range: 22.0-26.0; Abnormal: Above high normal; Units: MEQ/L; Status: F Test: ABG BASE EXCESS; Value: 1.5; Range: -2.0-2.0; Status: F Test: ABG STANDARD HCO3; Value: 25.7; Range: 22.0-26.0; Units: MEQ/L; Status: F Test: ABG O2 SATURATION; Value: 92.7; Range: 95.0-99.0; Abnormal: Below low normal; Units: %; Status: F Test: ABG DEVICE; Value: NASAL JAMARI; Status: F Lab Order: Acetaminophen Level; [facility]' 11/26/16 15:18 Test: ACETAMINOPHEN LEVEL; Value: < 2.0; Range: 10.0-30.0; Abnormal: Below low normal; Units: UG/ML; Status: F Test: CPK CREATINE PHOSPHOKINASE; Range: 39-308; Units: U/L; Status: I Test: CK-MB VALUE MASS; Range: 0.0-3.6; Units: NG/ML; Status: I Test: MB/CK RELATIVE INDEX; Range: < OR =4; Status: I Test: TROPONIN I; Range: < 0.10; Units: NG/ML; Status: I Lab Order: Basic Metabolic Profile; [facility]' 11/26/16 15:18 Test: GLUCOSE, FASTING; Value: 91; Range: 70-105; Units: MG/DL; Status: F Test: BLOOD UREA NITROGEN; Value: 10; Range: 7-18; Units: MG/DL; Status: F Test: CREATININE FOR GFR; Value: 0.88; Range: 0.70-1.30; Units: MG/DL; Status: F Test: GLOMERULAR FILTRATION RATE; Value: > 60.0; Range: >60; Status: F Test: SODIUM LEVEL; Value: 145; Range: 136-145; Units: MEQ/L; Status: F Test: POTASSIUM SERUM; Value: 4.6; Range: 3.5-5.1; Units: MEQ/L; Status: F Test: CHLORIDE LEVEL; Value: 109; Range: 98-107; Abnormal: Above high normal; Units: MEQ/L; Status: F Test: CARBON DIOXIDE LEVEL; Value: 29; Range: 21-32; Units: MEQ/L; Status: F Test: ANION GAP; Value: 7; Range: 8-16; Abnormal: Below low normal; Units: MEQ/L; Status: F Test: CALCIUM LEVEL; Value: 8.7; Range: 8.5-10.1; Units: MG/DL; Status: F Test Note: ; Units are mL/min/1.73 m2 Chronic Kidney Disease Staging per NKF: Stage I & II GFR >=60 Normal to Mildly Decreased Stage III GFR 30-59 Moderately Decreased Stage IV GFR 15-29 Severely Decreased Stage V GFR <15 Very Little GFR Left ESRD GFR <15 on INTERACTIVE DESIGNER Lab Order: Complete Blood Count; [facility]' 11/26/16 15:18 Test: WHITE BLOOD COUNT; Value: 7.3; Range: 4.0-10.0; Units: K/mm3; Status: F Test: RED BLOOD COUNT; Value: 3.72; Range: 4.30-6.10; Abnormal: Below low normal; Units: M/mm3; Status: F Test: HEMOGLOBIN; Value: 12.1; Range: 14.0-18.0; Abnormal: Below low normal; Units: g/dl; Status: F Test: HEMATOCRIT; Value: 36.2; Range: 42.0-52.0; Abnormal: Below low normal; Units: %; Status: F Test: MEAN CORPUSCULAR VOLUME; Value: 97.5; Range: 80.0-96.0; Abnormal: Above high normal; Units: fl; Status: F Test: MEAN CORPUSCULAR HEMOGLOBIN; Value: 32.5; Range: 27.0-33.0; Units: pg; Status: F Test: MEAN CORPUSCULAR HGB CONC; Value: 33.3; Range: 32.0-36.5; Units: g/dl; Status: F Test: RED CELL DISTRIBUTION WIDTH; Value: 13.3; Range: 11.5-14.5; Units: %; Status: F Test: PLATELET COUNT, AUTOMATED; Value: 524; Range: 150-450; Abnormal: Above high normal; Units: k/mm3; Status: F Lab Order: Drug Eval Toxicology ED Only; SPEC'M 11/26/16 15:18 Test: AMPHETAMINES LEVEL URINE; Value: NEGATIVE; Range: NEGATIVE; Status: F Test: BARBITURATES URINE; Value: NEGATIVE; Range: NEGATIVE; Status: F Test: BENZODIAZEPINES URINE; Value: POSITIVE; Range: NEGATIVE; Abnormal: Above high normal; Status: F Test: CANNABINOIDS URINE; Value: NEGATIVE; Range: NEGATIVE; Status: F Test: COCAINE METABOLITE URINE; Value: NEGATIVE; Range: NEGATIVE; Status: F Test: METHADONE URINE; Value: NEGATIVE; Range: NEGATIVE; Status: F Test: OPIATES URINE; Value: NEGATIVE; Range: NEGATIVE; Status: F Test: TRICYCLIC ANTIDEPRESS URINE; Value: NEGATIVE; Range: NEGATIVE; Status: F Test Note: ; ALL PRESUMPTIVE POSITIVE FINDINGS ARE UNCONFIRMED NORMAL VALUES THRESHOLD IN NG/ML AMPHETAMINES 1000 METHAMPHETAMINES 1000 BARBITURATES 300 BENZODIAZEPINES 300 CANNABINOIDS (THC) 50 COCAINE METABOLITE 300 METHADONE 300 OPIATES 300 PHENCYCLIDINE 25 TRICYCLIC ANTIDEPRESSANTS 1000 RESULTS ARE FOR MEDICAL PURPOSES ONLY. ALL URINE SPECIMENS WILL BE SAVED FOR 3 DAYS. IF CONFIRMATION OF A PRESUMPTIVE POSTIVE SCREEN RESULT IS DESIRED, CALL CHEMISTRY ([phone]) AND REQUEST URINE TO BE SENT TO REFERENCE LAB. FOR A LIST OF CLOSELY RELATED COMPOUNDS PLEASE CALL THE LAB. Lab Order: Ethyl Alcohol (ethanol); SPEC'M 11/26/16 15:18 Test: ETHYL ALCOHOL (ETHANOL); Value: < 0.003; Range: 0.000-0.010; Units: %; Status: F Lab Order: Liver Profile; SPEC'M 11/26/16 15:18 Test: AST/SGOT; Value: 18; Range: 15-37; Units: U/L; Status: F Test: ALT/SGPT; Value: 28; Range: 12-78; Units: U/L; Status: F Test: ALKALINE PHOSPHATASE; Value: 75; Range: 45-117; Units: U/L; Status: F Test: BILIRUBIN,TOTAL; Value: 0.1; Range: 0.2-1.0; Abnormal: Below low normal; Units: MG/DL; Status: F Test: BILIRUBIN,DIRECT; Value: < 0.1; Range: 0.0-0.2; Units: MG/DL; Status: F Test: TOTAL PROTEIN; Value: 6.2; Range: 6.4-8.2; Abnormal: Below low normal; Units: GM/DL; Status: F Test: ALBUMIN; Value: 3.1; Range: 3.2-5.2; Abnormal: Below low normal; Units: GM/DL; Status: F Test: ALBUMIN/GLOBULIN RATIO; Value: 1.00; Range: 1.00-1.93; Status: F Lab Order: Salicylate Level; [facility] 11/26/16 15:18 Test: SALICYLATE LEVEL; Value: 2.0; Range: 5.0-30.0; Abnormal: Below low normal; Units: MG/DL; Status: F Lab Order: Thyroid Stimulating Hormone; [facility] 11/26/16 15:18 Test: THYROID STIMULATING HORMONE; Value: 1.630; Range: 0.358-3.740; Units: uIU/ML; Status: F Lab Order: COMPLETE BLOOD COUNT; [facility] 11/27/16 04:33 Test: WHITE BLOOD COUNT; Value: 7.3; Range: 4.0-10.0; Units: K/mm3; Status: F Test: RED BLOOD COUNT; Value: 3.56; Range: 4.30-6.10; Abnormal: Below low normal; Units: M/mm3; Status: F Test: HEMOGLOBIN; Value: 11.7; Range: 14.0-18.0; Abnormal: Below low normal; Units: g/dl; Status: F Test: HEMATOCRIT; Value: 35.0; Range: 42.0-52.0; Abnormal: Below low normal; Units: %; Status: F Test: MEAN CORPUSCULAR VOLUME; Value: 98.3; Range: 80.0-96.0; Abnormal: Above high normal; Units: fl; Status: F Test: MEAN CORPUSCULAR HEMOGLOBIN; Value: 32.7; Range: 27.0-33.0; Units: pg; Status: F Test: MEAN CORPUSCULAR HGB CONC; Value: 33.3; Range: 32.0-36.5; Units: g/dl; Status: F Test: RED CELL DISTRIBUTION WIDTH; Value: 13.4; Range: 11.5-14.5; Units: %; Status: F Test: PLATELET COUNT, AUTOMATED; Value: 483; Range: 150-450; Abnormal: Above high normal; Units: k/mm3; Status: F Lab Order: BASIC METABOLIC PROFILE; [facility] 11/27/16 04:33 Test: GLUCOSE, FASTING; Value: 82; Range: 70-105; Units: MG/DL; Status: F Test: BLOOD UREA NITROGEN; Value: 9; Range: 7-18; Units: MG/DL; Status: F Test: CREATININE FOR GFR; Value: 0.75; Range: 0.70-1.30; Units: MG/DL; Status: F Test: GLOMERULAR FILTRATION RATE; Value: > 60.0; Range: >60; Status: F Test: SODIUM LEVEL; Value: 147; Range: 136-145; Abnormal: Above high normal; Units: MEQ/L; Status: F Test: POTASSIUM SERUM; Value: 3.9; Range: 3.5-5.1; Units: MEQ/L; Status: F Test: CHLORIDE LEVEL; Value: 111; Range: 98-107; Abnormal: Above high normal; Units: MEQ/L; Status: F Test: CARBON DIOXIDE LEVEL; Value: 31; Range: 21-32; Units: MEQ/L; Status: F Test: ANION GAP; Value: 5; Range: 8-16; Abnormal: Below low normal; Units: MEQ/L; Status: F Test: CALCIUM LEVEL; Value: 8.5; Range: 8.5-10.1; Units: MG/DL; Status: F Test Note: ; Units are mL/min/1.73 m2 Chronic Kidney Disease Staging per NKF: Stage I & II GFR >=60 Normal to Mildly Decreased Stage III GFR 30-59 Moderately Decreased Stage IV GFR 15-29 Severely Decreased Stage V GFR <15 Very Little GFR Left ESRD GFR <15 on INTERACTIVE DESIGNER Lab Order: MAGNESIUM LEVEL; [facility]11/27/16 04:33 Test: MAGNESIUM LEVEL; Value: 1.8; Range: 1.8-2.4; Units: MG/DL; Status: F Lab Order: CARDIAC MARKER PANEL; [facility] 11/26/16 15:18 Test: CPK CREATINE PHOSPHOKINASE; Value: 155; Range: 39-308; Units: U/L; Status: F Test: CK-MB VALUE MASS; Value: 3.8; Range: 0.0-3.6; Abnormal: Above high normal; Units: NG/ML; Status: F Test: MB/CK RELATIVE INDEX; Value: 2.45; Range: < OR =4; Status: F Test: TROPONIN I; Value: < 0.02; Range: < 0.10; Units: NG/ML; Status: F Test Note: ; DIAGNOSIS CRITERIA MMB ng/ml Relative Index (RI) NON-AMI < or = 5 N/A POLLARD ZONE > 5 < or = 4 AMI > 5 > 4 Lab Order: CARDIAC MARKER PANEL; [facility] 11/27/16 04:33 Test: CPK CREATINE PHOSPHOKINASE; Value: 144; Range: 39-308; Units: U/L; Status: F Test: CK-MB VALUE MASS; Value: 3.4; Range: 0.0-3.6; Units: NG/ML; Status: F Test: MB/CK RELATIVE INDEX; Value: 2.36; Range: < OR =4; Status: F Test: TROPONIN I; Value: < 0.02; Range: < 0.10; Units: NG/ML; Status: F Test Note: ; DIAGNOSIS CRITERIA MMB ng/ml Relative Index (RI) NON-AMI < or = 5 N/A POLLARD ZONE > 5 < or = 4 AMI > 5 > 4 Radiology Order: CT Head without contrast Test: CT Head without contrast REASON FOR EXAMINATION: ams; ; CT of the head; Clinical history: altered mental status.; Technique: Multiple axial CT images were obtained through the head without administration of contrast; .; Comparison: 06/17/2016; Findings: The ventricles and sulci are symmetric bilaterally. There is no evidence of acute hemorrhag; e or infarct. There is no midline shift, mass effect, or extra-axial fluid collection. The osseous st; ructures are unremarkable. The visualized paranasal sinuses and mastoid air cells are clear.; Impression: Negative study.; ; Radiology Order: Chest, 2 view PA, Lat Test: Chest, 2 view PA, Lat REASON FOR EXAMINATION: chest congestion; PA and lateral chest:; ; Comparisons are 09/06/2016 and 03/04/2015.; ; There are subsegmental patchy infiltrates in the right upper lobe and in the; lower lobes bilaterally as changes from the prior studies.; ; There are no pleural effusions. No masses. There is a small stable granuloma; peripherally in the right lung.; ; I suspect a nondisplaced healing fracture posterior laterally in the right ninth; rib as an interval change.; ; Cardiac size is normal.; ; The leslie appear enlarged compared to prior studies.; ; Mediastinum and bony thorax are unremarkable.; ; ; Signed by; Kamari Berumen MD 11/27/2016 10:17 A; Outcome: 21:31 Decision to Hospitalize by Provider. mm11 23:31 Discharge Assessment: Patient awake, alert and oriented x 3. No cognitive and/or cf2 functional deficits noted. Patient verbalized understanding of disposition instructions. Patient awake and alert. Oriented to person, place and time. patient administered narcotics - no. The following High Risk Discharge criteria are identified: None. Admitted ER admission BRUCE Watts took report , with chart. Condition: good Condition: stable Condition: improved. CT Study completed. Property :Personal belongings accompany Pt. 11/27 12:57 Patient left the ED. hs1 Signatures: Dispatcher [employer] EDMS Jan Campuzano MD MD pc Keira Iglesias, Curriculum Development Coordinator Unit deg Dalia Brambila, Reg Reg gb Freddie Armstrong, DO mm11 Keila Matamoros RN RN jjr Sherrill, Hannah RN RN hs1 Ricki Akers js11 Esperanza Gonzales RN RN sls1 Cody Matt, COUPON COLLECTION CLERK COUPON COLLECTION CLERK jrDianne Ny Christina, RN RN cf2 Carmen Sen, COUPON COLLECTION CLERK COUPON COLLECTION CLERK Mirian Brandon2 Corrections: (The following items were deleted from the chart) 11/26 14:38 14:29 BP 97 / 56; Pulse 56bpm; Resp 14bpm; Pulse Ox 92% RA; Temp 97.1F Oral; 81.65 kg jrd Reported; Height 5 ft. 4 in.; BMI: 30.9; jrd MTDD
[2016-11-27] MEDS ORDERED: SLF 3 ML SYR IV PRN (13:45)
[2016-11-27] MEDS: ACETAMINOPHEN TAB 650MG DOSE (2X325MG) PO PRN ×2 (15:17→20:55)
[2016-11-27] MEDS: SLF 3 ML SYR IV SCH ×2 (15:43→22:09)
--- NOTE | 2016-11-27 16:45 | IPNPDOC ---
Assessment/Plan Date Seen The patient was seen on 11/27/16. Problems Problems: (1) Lethargy Status: Acute Response to Treatment: Stable (2) Overdose Status: Acute Problem Text: * positive benzos in his tox screen, (3) COPD (chronic obstructive pulmonary disease) Status: Acute (4) Depression Status: Acute (5) Substance abuse Status: Acute Plan / VTE VTE Prophylaxis Ordered?: Yes Subjective Review of Systems CC/HPI The patient is a 51-year-old male admitted with a reason for visit of Lethargy; Overdose. General: Reports: ROS Unobtainable Objective Physical Examination General Exam: Positive: No Acute Distress Eye Exam: Positive: Conjunctiva & lids normal, PERRLA Chest Exam: Positive: Clear to auscultation, Normal air movement Heart Exam: Positive: Normal S1, Normal S2, Rate Normal, Regular Rhythm, Negative: Murmurs, Rubs Abdomen Exam: Positive: Normal bowel sounds, Soft, Negative: Hepatospenomegaly, Tenderness Extremity Exam: Positive: Normal pulses, Negative: Clubbing, Cyanosis, Edema Vital Signs/I&O Vital Signs Date Time Temp Pulse Resp B/P Pulse Ox O2 Delivery O2 Flow Rate FiO2 11/27/16 13:20 94 Nasal Cannula 3.0 11/27/16 07:40 97.5 61 20 114/70 I&O- Last 24 Hours up to 6 AM 11/27/16 06:00 Intake Total 0 ml Output Total 0 ml Balance 0 ml Laboratory Data Labs 24H Laboratory Tests 2 11/27/16 04:33: Anion Gap 5L, Blood Urea Nitrogen 9, Creatinine 0.75, Sodium Level 147H, Potassium Level 3.9, Chloride Level 111H, Carbon Dioxide Level 31, Calcium Level 8.5, Total Creatine Kinase 144, Creatine Kinase MB 3.4, Creatine Kinase MB Relative Index 2.36, Glomerular Filtration Rate > 60.0, Magnesium Level 1.8, Troponin I < 0.02 CBC/BMP Laboratory Tests 11/27/16 04:33 Calcium Level 8.5, Total Creatine Kinase 144, Red Blood Count 3.56 L, Mean Corpuscular Volume 98.3 H, Mean Corpuscular Hemoglobin 32.7, Mean Corpuscular Hemoglobin Concent 33.3, Red Cell Distribution Width 13.4 ANGY GARCIA DO Nov 27, 2016 16:45
[2016-11-27] MEDS: LevoFLOXacin 750 MG TABLET PO SCH (18:21)
[2016-11-28 00:13] VITALS: BP 104/62
[2016-11-28] MEDS: IPRATROPIUM 0.5MG/ALBUTEROL 2.5MG INH SOL UD 3ML (DUONEB)(J7620) NEB SCH ×4 (02:05→19:36)
[2016-11-28 05:11] VITALS: BP 110/71
[2016-11-28] MEDS: HEPARIN SOD (PORCINE) 5000 UNITS/ML VIAL SC SCH ×3 (05:29→21:13)
[2016-11-28] MEDS: SLF 3 ML SYR IV SCH ×3 (05:29→22:00)
[2016-11-28 05:55] LABS: MEAN CORPUSCULAR HEMOGLOBIN 32.3 pg (27.0-33.0); MEAN CORPUSCULAR HGB CONC 32.3 g/dl (32.0-36.5); MEAN CORPUSCULAR VOLUME 99.9 fl (80.0-96.0); RED CELL DISTRIBUTION WIDTH 13.2 % (11.5-14.5); WHITE BLOOD COUNT 8.8 K/mm3 (4.0-10.0)
[2016-11-28 06:12] LABS: ANION GAP 7 MEQ/L (8-16); BLOOD UREA NITROGEN 9 MG/DL (7-18); CALCIUM LEVEL 8.7 MG/DL (8.5-10.1); CARBON DIOXIDE LEVEL 28 MEQ/L (21-32); CHLORIDE LEVEL 108 MEQ/L (98-107); CREATININE FOR GFR 0.83 MG/DL (0.70-1.30); GLOMERULAR FILTRATION RATE > 60.0 (>60); GLUCOSE, FASTING 79 MG/DL (70-105); MAGNESIUM LEVEL 1.8 MG/DL (1.8-2.4); POTASSIUM SERUM 3.9 MEQ/L (3.5-5.1); SODIUM LEVEL 143 MEQ/L (136-145)
[2016-11-28 08:00] VITALS: BP 101/64
[2016-11-28] MEDS: ADVAIR DISKUS 250/50 INH PWD INH SCH ×2 (08:01→19:35)
[2016-11-28] MEDS: SENOKOT S TAB PO SCH ×2 (08:28→21:13)
[2016-11-28] MEDS: MULTIVITAMINS/MINERALS THERAP 1 TAB PO SCH (08:28)
[2016-11-28] MEDS: THIAMINE 100 MG TAB PO SCH (08:28)
[2016-11-28] MEDS: NICOTINE 21MG/24HR 1 EA TRANSDERMAL TD SCH (08:28)
[2016-11-28] MEDS: FOLIC ACID 1 MG TAB PO SCH (08:28)
[2016-11-28 12:00] VITALS: BP 115/75
--- NOTE | 2016-11-28 13:56 | CR ---
DATE OF CONSULTATION: 11/28/2016 REQUESTING PROVIDER: Lise Kearns MD HISTORY OF PRESENT ILLNESS: 51-year-old male with a history of multiple inpatient psychiatric hospitalizations and significant substance dependency issues admitted to the medical floor for stabilization. According to the chart, the patient was picked up by emergency medical services (EMS) at [facility]. The patient was persistently falling asleep. His mental status worsened and when was evaluated at the emergency department, according to Dr. Campo, he was only arousable with painful stimuli. He was unable to recall the events later on when his mental status improved. During the interview today, the patient is minimizing all of the events that led to his admission. The patient is denying the use of any substance, but when he is asked of the reasons of why he cannot remember what happened or the fact that the patient was not able to be awakened in the emergency room to be evaluated, the patient is not able to give a reasonable explanation. The patient stated "if I use I am going to be kicked out of the program." His urine drugs screen is positive for benzodiazepines. Again, the patient is only focused on discharge issues and is denying any signs or symptoms of depression, suicidal ideation and wants me to believe that everything is okay and that he should be going home. The patient appears depressed with psychomotor retardation, restricted facial expression, poor soft, monotone speech. During the interview there is no evidence of psychotic symptoms. No auditory or visual hallucinations or delusions. The patient wants me to believe that he has good support and that he has been interacting well with his support system and his family. However, he is not a reliable historian. PAST MEDICAL HISTORY: The patient has been diagnosed to have chronic obstructive pulmonary disease (COPD). Chronic back pain. Umbilical hernia. History of Methicillin-resistant Staphylococcus aureus (MRSA). History of spinal fusion in 2006. History of carpal tunnel release. History of kidney surgery as a child. History of right ear surgery. PAST PSYCHIATRIC HISTORY: As stated above, the patient has a history of multiple prior psychiatric hospitalization and history of polysubstance dependency. FAMILY HISTORY: Positive for depression on the part of his mother. No history of suicide in the family. SOCIAL HISTORY: He was born and raised in [place]. Reports normal childhood without abuse or neglect. He was for 13 years. He has three children who live in [place]. He is unemployed. SUBSTANCE ABUSE HISTORY: As stated above, the patient has a very long history of polysubstance dependency. The patient reports that he is now on the "Suboxone program." LABS ON ADMISSION: His CBC showed white blood cell 7.3, red blood cells 3.72, hemoglobin 12.1, hematocrit 36.2, MCV of 97.5. CMP was unremarkable. CK-MB was 3.8. Total protein 6.2. Albumin 3.1. TSH within normal limits. UDS was positive for benzodiazepines. His ABG showed a normal pH at admission. MENTAL STATUS EXAMINATION: The patient is dressed in casual clothes. The patient is partially cooperative, but somewhat guarded. Speech is soft and monotone. He has fair eye contact. Mood is anxious and depressed. Affect is restricted and appropriate with mood. The patient is oriented, to time, place, person and situation. Concentration is fair. Thought processes are somewhat circumstantial, does not have auditory or visual hallucinations. The patient does not have paranoid, persecutory, somatic, grandiose or rastafari delusions. The patient is denying suicidal or homicidal ideation, but again, the patient is minimizing the events that led to his admission. His mental status was significantly impaired and was only arousable with painful stimuli when he arrived to the emergency room. Judgment and insight are poor. DIAGNOSIS: [place] I: Unspecified depressive disorder. Polysubstance dependence. Substance induced mood disorder. [place] II: Deferred. [place] III: Overdose on benzodiazepines. COPD. Pneumonia. Chronic back pain. Umbilical hernia. History of MRSA. RECOMMENDATIONS: Given the fact that the patient has overdosed on benzodiazepines, that he was unresponsive and only arousable with painful stimuli on arrival to the emergency department, that he is minimizing and denying the use of benzodiazepines, but cannot give a logical explanation of what happened before admission, the patient will need to be transferred to the inpatient mental health unit for continuation of the evaluation and treatment.
[2016-11-28 15:45] VITALS: BP 113/70
[2016-11-28] MEDS: LevoFLOXacin 750 MG TABLET PO SCH (17:43)
--- NOTE | 2016-11-28 20:59 | IPNPDOC ---
Assessment/Plan Date Seen The patient was seen on 11/28/16. Problems Problems: (1) Lethargy Status: Resolved Response to Treatment: Stable Problem Text: pt is medically cleared (2) Overdose Status: Acute Problem Text: * positive benzos in his tox screen, * psych consult * pt will need [facility] admission * (3) COPD (chronic obstructive pulmonary disease) Status: Chronic Problem Text: * will start pt on levaquin for 7 days (4) Depression Status: Chronic (5) Substance abuse Status: Chronic Plan / VTE VTE Prophylaxis Ordered?: Yes Subjective Review of Systems CC/HPI The patient is a 51-year-old male admitted with a reason for visit of Lethargy; Overdose. Constitutional: Denies: Chills, Fever, Malaise, Night Sweats, Weakness Objective Physical Examination General Exam: Positive: No Acute Distress Eye Exam: Positive: Conjunctiva & lids normal, PERRLA Chest Exam: Positive: Clear to auscultation, Normal air movement Heart Exam: Positive: Normal S1, Normal S2, Rate Normal, Regular Rhythm, Negative: Murmurs, Rubs Abdomen Exam: Positive: Normal bowel sounds, Soft, Negative: Hepatospenomegaly, Tenderness Extremity Exam: Positive: Normal pulses, Negative: Clubbing, Cyanosis, Edema Vital Signs/I&O Vital Signs Date Time Temp Pulse Resp B/P Pulse Ox O2 Delivery O2 Flow Rate FiO2 11/28/16 16:02 Room Air 11/28/16 15:45 95.8 62 18 113/70 94 11/27/16 16:00 3.0 I&O- Last 24 Hours up to 6 AM 11/28/16 06:00 Intake Total 2040 ml Output Total 1775 ml Balance 265 ml Laboratory Data Labs 24H Laboratory Tests 2 11/28/16 05:14: Anion Gap 7L, Blood Urea Nitrogen 9, Creatinine 0.83, Sodium Level 143, Potassium Level 3.9, Chloride Level 108H, Carbon Dioxide Level 28, Calcium Level 8.7, Glomerular Filtration Rate > 60.0, Magnesium Level 1.8 CBC/BMP Laboratory Tests 11/28/16 05:14 Calcium Level 8.7, Red Blood Count 3.89 L, Mean Corpuscular Volume 99.9 H, Mean Corpuscular Hemoglobin 32.3, Mean Corpuscular Hemoglobin Concent 32.3, Red Cell Distribution Width 13.2 ANGY GARCIA DO Nov 28, 2016 20:58
[2016-11-28] MEDS: ACETAMINOPHEN TAB 650MG DOSE (2X325MG) PO PRN (21:13)
[2016-11-28 22:00] VITALS: BP 102/61
[2016-11-29] MEDS: IPRATROPIUM 0.5MG/ALBUTEROL 2.5MG INH SOL UD 3ML (DUONEB)(J7620) NEB SCH ×4 (02:00→18:58)
[2016-11-29 06:00] VITALS: BP 119/74
[2016-11-29] MEDS: SLF 3 ML SYR IV SCH ×4 (06:00→20:27)
[2016-11-29] MEDS: HEPARIN SOD (PORCINE) 5000 UNITS/ML VIAL SC SCH ×3 (06:13→20:23)
[2016-11-29 06:34] LABS: MEAN CORPUSCULAR HEMOGLOBIN 32.7 pg (27.0-33.0); MEAN CORPUSCULAR HGB CONC 33.3 g/dl (32.0-36.5); RED CELL DISTRIBUTION WIDTH 13.8 % (11.5-14.5); WHITE BLOOD COUNT 5.5 K/mm3 (4.0-10.0)
[2016-11-29 06:47] LABS: ANION GAP 9 MEQ/L (8-16); BLOOD UREA NITROGEN 7 MG/DL (7-18); CALCIUM LEVEL 8.8 MG/DL (8.5-10.1); CARBON DIOXIDE LEVEL 27 MEQ/L (21-32); CHLORIDE LEVEL 109 MEQ/L (98-107); GLOMERULAR FILTRATION RATE > 60.0 (>60); GLUCOSE, FASTING 89 MG/DL (70-105); MAGNESIUM LEVEL 1.7 MG/DL (1.8-2.4); POTASSIUM SERUM 3.8 MEQ/L (3.5-5.1); SODIUM LEVEL 145 MEQ/L (136-145)
[2016-11-29] MEDS: ADVAIR DISKUS 250/50 INH PWD INH SCH ×2 (07:27→23:01)
[2016-11-29] MEDS ORDERED: MAG SULF 1GM/100ML (MAG RUN) 1 GM in APPROPRIATE DILUENT 1 EA IV ONE (08:00)
--- NOTE | 2016-11-29 08:02 | IPNPDOC ---
Assessment/Plan Date Seen The patient was seen on 11/29/16. Problems Problems: (1) Overdose Status: Acute Problem Text: * positive benzos in his tox screen, * psych consult, Pt will be transferred to [facility] when bed becomes available (2) Lethargy Status: Resolved Response to Treatment: Stable Problem Text: pt is medically cleared to go to [facility] (3) COPD (chronic obstructive pulmonary disease) Status: Chronic Problem Text: * continue levaquin, questionable infiltrate on xray, (4) Depression Status: Chronic (5) Substance abuse Status: Chronic Plan / VTE VTE Prophylaxis Ordered?: Yes Subjective Review of Systems CC/HPI The patient is a 51-year-old male admitted with a reason for visit of Lethargy; Overdose. Constitutional: Denies: Chills, Fever, Malaise, Night Sweats, Weakness Pulmonary: Denies: Cough, Dyspnea Cardiovascular: Denies: Chest Pain, Lt Headedness, Orthopnea, Palpitations, Paroxysmal Noc. Dyspnea Psych: Reports: Depression Objective Physical Examination General Exam: Positive: No Acute Distress Eye Exam: Positive: Conjunctiva & lids normal, PERRLA Chest Exam: Positive: Clear to auscultation, Normal air movement Heart Exam: Positive: Normal S1, Normal S2, Rate Normal, Regular Rhythm, Negative: Murmurs, Rubs Abdomen Exam: Positive: Normal bowel sounds, Soft, Negative: Hepatospenomegaly, Tenderness Extremity Exam: Positive: Normal pulses, Negative: Clubbing, Cyanosis, Edema Vital Signs/I&O Vital Signs Date Time Temp Pulse Resp B/P Pulse Ox O2 Delivery O2 Flow Rate FiO2 11/29/16 06:00 97.0 50 18 119/74 96 Room Air 11/27/16 16:00 3.0 I&O- Last 24 Hours up to 6 AM 11/29/16 06:00 Intake Total 1800 ml Output Total 375 ml Balance 1425 ml Laboratory Data Labs 24H Laboratory Tests 2 11/29/16 06:19: Anion Gap 9, Blood Urea Nitrogen 7, Creatinine 0.80, Sodium Level 145, Potassium Level 3.8, Chloride Level 109H, Carbon Dioxide Level 27, Calcium Level 8.8, Glomerular Filtration Rate > 60.0, Magnesium Level 1.7L CBC/BMP Laboratory Tests 11/29/16 06:19 Calcium Level 8.8, Red Blood Count 3.61 L, Mean Corpuscular Volume 98.0 H, Mean Corpuscular Hemoglobin 32.7, Mean Corpuscular Hemoglobin Concent 33.3, Red Cell Distribution Width 13.8 ANGY GARCIA DO Nov 29, 2016 08:02
[2016-11-29] MEDS: MAGNESIUM OXIDE 400 MG TAB (MAG-OX) PO SCH ×2 (09:00→20:24)
[2016-11-29] MEDS: SENOKOT S TAB PO SCH ×2 (09:00→20:24)
[2016-11-29] MEDS: NICOTINE 21MG/24HR 1 EA TRANSDERMAL TD SCH (09:00)
[2016-11-29] MEDS: FOLIC ACID 1 MG TAB PO SCH (09:00)
[2016-11-29] MEDS: THIAMINE 100 MG TAB PO SCH (09:00)
[2016-11-29] MEDS: MULTIVITAMINS/MINERALS THERAP 1 TAB PO SCH (09:00)
--- NOTE | 2016-11-29 13:57 | EDDOCDS ---
Physician Documentation [facility] Name: Gavin Marvin Age: 51 yrs Sex: Male : 1965 Arrival Date: 11/26/2016 Time: 14:19 Bed Admit Hold MD: Disposition: 11/26/16 21:31 Hospitalization ordered by Melinda Campo for Inpatient Admission. Preliminary diagnosis is Poisoning by benzodiazepines, undetermined - history of benzo abuse. - Bed requested for PCU. - Status is Inpatient Admission. hs1 - Condition is Stable. - Problem is an acute exacerbation. - Symptoms have improved. HPI: 11/26 14:45 This 51 yrs old Male presents to ER via Ambulance with complaints of Altered pc Mental Status. 14:45 The history is obtained from the patient, EMS providers. A reliable history and/or pc examination was not able to be obtained, due to the patient's level of intoxication. The patient presents with decreased mental status, decreased responsiveness, trouble concentrating, trouble ambulating. Possible causes include drug use, known BDZ and opiate abuser. The patient's baseline is described as alert and fully oriented, and walks without assistance. He was at a local pharmacy and was noticed to be stumbling, unable to stay awake, slurring his words, so staff called EMS. He arrives with a SBP of 92, PO of 88 on room air and without any EMS interventions [employer]. He is not able to answer questions without repeated stimulation.. The patient has experienced similar episodes in the past, multiple times. The patient has been recently seen by Addictions clinic, with 4 RXs for 2 weeks of Suboxone in the past 2 weeks, per [facility] EMR. . Historical: - Allergies: Toradol (Hives); Tramadol HCl (Hives); - Home Meds: 1. Ambien 10 mg oral tab (Last dose: 11/25/2016) 2. clonidine HCl 0.2 mg Oral tab 1 tab 2 times per day 3. gabapentin 400 mg Oral cap 800 mg twice a day 4. Seroquel 300 mg Oral tab 1 tab once daily - PMHx: COPD; Depression; Substance Abuse; Chronic Back pain; - PSHx: back surgery; carpal tunnel repair; - The history from nurses notes was reviewed: and I agree with what is documented. - Social history: Smoking status: Patient uses tobacco products, current every day smoker. Not able to communicate due to their condition. - : The pt / caregiver states he / she is not on anticoagulants. Home medication list is obtained from [employer] import data. - Hospitalizations: : No recent hospitalization is reported. - Exposure Risk Screening:: None identified. - Immunization history:: Last tetanus immunization: up to date. - Family history: Not pertinent. - Social history:: the patient smokes cigarettes the patient drinks alcohol, the patient uses illicit drugs, including opiates, BDZs. ROS: 14:45 Unable to reliably obtain pc Exam: 14:45 General Appearance: no acute distress, lethargic. pc 14:45 EENT: ears, nose and throat normal, pharynx normal, mucous membranes moist pupils 3mm, sluggish. 14:45 Neck: supple, non-tender, no masses are appreciated. 14:45 Respiratory: breath sounds are normal, maintaining his airway, RR 14, PO 88 on RA. 14:45 CVS: regular rhythm, normal S1 and S2, no murmurs, strong peripheral pulses, normal capillary refill, the patient is bradycardic, at 56 bpm. 14:45 Abdomen: soft, non-tender, no organomegaly, normal bowel sounds. 14:45 Back: normal inspection. 14:45 Skin: skin color is normal, warm, dry. 14:45 Extremities: The extremities have a grossly normal appearance, are non-tender, without acute ROM abnormalities. 14:45 Neuro: cranial nerves normal as tested, no motor deficits, no sensory deficits, Mentation: slow to respond. Vital Signs: 14:26 BP 97 / 56 (auto/); jjr 14:28 Pulse 60 MON; Pulse Ox 89% ; jjr 14:29 BP 97 / 56; Pulse 56; Resp 14; Temp 97.1(O); Pulse Ox 92% on R/A; Weight 81.65 kg / jrd 180.01 lbs (R); Height 5 ft. 4 in. (162.56 cm); 14:35 Pulse 58 MON; Pulse Ox 91% ; jjr 14:35 BP 99 / 60 (auto/); jjr 14:41 BP 97 / 53 (auto/); jjr 14:41 Pulse 60 MON; Pulse Ox 90% ; jjr 14:54 BP 101 / 55 (auto/); jjr 14:54 Pulse 60 MON; Pulse Ox 94% on R/A; jjr 15:46 BP 112 / 62 (auto/); jjr 15:46 Pulse 56 MON; Pulse Ox 92% ; jjr 16:16 BP 111 / 71 (auto/); jjr 16:16 Pulse 58 MON; jjr 16:46 BP 103 / 68 (auto/); jjr 16:46 Pulse 50 MON; jjr 17:32 BP 78 / 52 (auto/); jjr 17:33 BP 85 / 52 (auto/); jjr 17:35 BP 86 / 52 (auto/); Pulse 50; Resp 18; Pulse Ox 92% on R/A; jjr 17:50 BP 124 / 68 (auto/); jjr 17:50 Pulse 66 MON; Pulse Ox 99% on R/A; jjr 17:57 BP 111 / 68 (auto/); jjr 17:57 Pulse 62 MON; Pulse Ox 94% ; jjr 18:04 Pulse 56 MON; Resp 18; Pulse Ox 92% on R/A; jjr 18:12 BP 109 / 67 (auto/); jjr 18:12 Pulse 60 MON; Pulse Ox 92% ; jjr 18:27 BP 98 / 67 (auto/); jjr 18:27 Pulse 58 MON; Resp 18; Pulse Ox 90% on R/A; jjr 18:42 BP 101 / 67 (auto/); jjr 18:42 Pulse 60 MON; Pulse Ox 90% ; jjr 18:57 BP 107 / 70 (auto/); jjr 18:57 Pulse 58 MON; Pulse Ox 89% ; jjr 19:12 Pulse 58 MON; Pulse Ox 89% ; cf2 19:12 BP 102 / 72 (auto/); cf2 19:27 BP 105 / 70 (auto/); cf2 19:28 Pulse 62 MON; Pulse Ox 90% ; cf2 19:42 Pulse 60 MON; Pulse Ox 90% ; cf2 19:42 BP 99 / 66 (auto/); cf2 19:57 Pulse 56 MON; Pulse Ox 89% ; cf2 19:57 BP 103 / 63 (auto/); cf2 20:12 Pulse 60 MON; Pulse Ox 87% ; cf2 20:12 BP 106 / 71 (auto/); cf2 20:27 BP 108 / 66 (auto/); cf2 20:28 Pulse 60 MON; Pulse Ox 87% ; cf2 20:42 BP 111 / 68 (auto/); cf2 20:43 Pulse 58 MON; Pulse Ox 89% ; cf2 22:12 BP 107 / 68 (auto/); cf2 22:12 Pulse 56 MON; Pulse Ox 87% ; cf2 22:12 BP 114 / 68; cf2 22:28 Pulse 50 MON; Pulse Ox 92% ; cf2 22:35 Pulse 54 MON; Pulse Ox 89% ; cf2 22:43 Pulse 52 MON; Pulse Ox 89% ; cf2 22:49 Pulse 48 MON; Pulse Ox 90% ; cf2 22:54 Pulse 52 MON; Pulse Ox 89% ; cf2 23:00 Pulse 52 MON; Pulse Ox 92% ; cf2 23:06 Pulse 54 MON; Pulse Ox 90% ; cf2 23:11 Pulse 52 MON; Pulse Ox 89% ; cf2 23:17 Pulse 54 MON; Pulse Ox 88% ; cf2 23:24 Pulse 56 MON; Pulse Ox 88% ; cf2 23:28 Pulse 50 MON; Pulse Ox 91% ; cf2 14:29 Body Mass Index 30.90 (81.65 kg, 162.56 cm) jrd 14:29 Patient was unable to verbilize a pain scale rating but indicate his neck hurt jrd MDM: 14:33 Oxygen at 2L/min via NC ordered. pc 14:33 IV Saline Lock ordered. pc 14:33 naloxone 2 mg IVP once ordered. pc 14:33 Call Respiratory ordered. pc 14:34 -Arterial Blood Gas Ordered. EDMS 14:39 Call Respiratory complete. deg 14:45 Differential Diagnosis: AMS, likely due to mixed drug abuse; hypoxemia. Plan: labs, pc meds. 15:09 -Arterial Blood Gas Reviewed. pc 15:09 Straight cath ordered. pc 15:10 Acetaminophen Level Ordered. EDMS 15:10 Basic Metabolic Profile Ordered. EDMS 15:10 Complete Blood Count Ordered. EDMS 15:10 Drug Eval Toxicology ED Only Ordered. EDMS 15:10 Ethyl Alcohol (ethanol) Ordered. EDMS 15:10 Liver Profile Ordered. EDMS 15:10 Salicylate Level Ordered. EDMS 15:10 Thyroid Stimulating Hormone Ordered. EDMS 18:00 Acetaminophen Level Reviewed. pc 18:00 Basic Metabolic Profile Reviewed. pc 18:00 Complete Blood Count Reviewed. pc 18:00 Liver Profile Reviewed. pc 18:00 Salicylate Level Reviewed. pc 18:00 Ethyl Alcohol (ethanol) Reviewed. pc 18:00 Thyroid Stimulating Hormone Reviewed. pc 18:20 Financial registration complete. gjb 18:21 Drug Eval Toxicology ED Only Reviewed. pc 18:40 [facility] Payment Agreement was scanned into [employer] and attached to record. gjb 21:29 BED REQUEST+ADM ordered. EDMS 22:07 Admission / Observation Status ordered. EDMS 22:07 CT Head without contrast Ordered. EDMS 22:07 REGULAR DIET PED PLASTIC [place] ordered. EDMS 22:08 COMPLETE BLOOD COUNT Ordered. EDMS 22:08 BASIC METABOLIC PROFILE Ordered. EDMS 22:08 MAGNESIUM LEVEL Ordered. EDMS 22:10 PHYSICAL THERAPY EVAL & TREAT ordered. EDMS 22:54 CARDIAC MARKER PANEL Ordered. EDMS 02/03 03:19 CARDIAC MARKER PANEL Ordered. EDMS 06:43 Acetaminophen Level Reviewed. mm11 06:43 Basic Metabolic Profile Reviewed. mm11 06:43 Liver Profile Reviewed. mm11 06:43 Salicylate Level Reviewed. mm11 06:43 COMPLETE BLOOD COUNT Reviewed. mm11 06:43 BASIC METABOLIC PROFILE Reviewed. mm11 06:43 CARDIAC MARKER PANEL Reviewed. mm11 06:43 Ethyl Alcohol (ethanol) Reviewed. mm11 06:43 Thyroid Stimulating Hormone Reviewed. mm11 06:43 MAGNESIUM LEVEL Reviewed. mm11 06:43 CARDIAC MARKER PANEL Reviewed. mm11 06:43 CT Head without contrast Reviewed. mm11 09:15 Chest, 2 view PA, Lat Ordered. EDMS 11:48 T-Sheet-- Draft Copy was scanned into [employer] and attached to record. gb 11:49 Radiology Report was scanned into [employer] and attached to record. gb Administered Medications: 11/26 14:40 Drug: naloxone 2 mg [naloxone 1 mg/mL injection syringe (2 mL)] Route: IVP; Site: left jjr forearm; Signatures: Dispatcher [employer] EDMS Jan Campuzano MD MD pc Murray, Denise, Supervisor [employer] deg Dalia Brambila, Reg Reg gb Freddie Armstrong DO DO mm11 Keila Matamoros RN RN jjr Idalia Nagel RN RN hs1 Ana Calhoun RN RN sls2 Dianne Peñaloza The chart was reviewed and I authenticate all verbal orders and agree with the evaluation and treatment provided.Corrections: (The following items were deleted from the chart) 22:53 22:21 CARDIAC MARKER PANEL ordered. EDMS EDMS 11/27 03:18 11/26 22:21 CARDIAC MARKER PANEL ordered. EDMS EDMS 11/27 11:28 11/26 22:07 ELECTROCARDIOGRAM ADULT ordered. EDAK EDAK Attachments: 18:40 [facility] Payment Agreement gjb 11/27 11:48 T-Sheet-- Draft Copy gb Chart Complete MTDD
--- NOTE | 2016-11-29 13:58 | EDDOCDS ---
Nurse's Notes [facility] Name: Gavin Marvin Age: 51 yrs Sex: Male : 1965 Arrival Date: 11/26/2016 Time: 14:19 Bed Admit Hold Private MD: Diagnosis: Poisoning by benzodiazepines, undetermined-history of benzo abuse Presentation: 11/26 14:22 Presenting complaint: EMS states: phoned to [facility] by [employer] pt falling asleep jjr in store asked to leave then returned 30 minutes later without remembering being asked to leave, FSBS 118. Adult Sepsis Screening: Patient has new or worsening altered mentation (1 point). Patient's respiratory rate is less than 22. Systolic blood pressure is greater than 100. Patient has a qSOFA score of 1- Negative Sepsis Screen. 14:22 Acuity: TIMUR Level 3 [facility] 14:22 Method Of Arrival: Ambulance [facility] 21:12 Suicide/Homicide risk assessment- the patient denies having any suicidal and/or cf2 homicidal ideations and does not present with any other emotional, behavioral or mental health complaints. 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 Transition of care: patient was not received from another setting of care. Triage Assessment: 14:31 General: Appears in no apparent distress, Behavior is drowsy. Pain: Location: back of jjr neck. HIV screening NA for this visit Offered previously. Neurological: Level of Consciousness is lethargic, Auction Clerk are equal bilaterally Speech is normal. Respiratory: Airway is patent Respiratory effort is even, unlabored, Respiratory pattern is regular. Derm: No deficits noted. Historical: - Allergies: Toradol (Hives); Tramadol HCl (Hives); - Home Meds: 1. Ambien 10 mg oral tab (Last dose: 11/25/2016) 2. clonidine HCl 0.2 mg Oral tab 1 tab 2 times per day 3. gabapentin 400 mg Oral cap 800 mg twice a day 4. Seroquel 300 mg Oral tab 1 tab once daily - PMHx: COPD; Depression; Substance Abuse; Chronic Back pain; - PSHx: back surgery; carpal tunnel repair; - The history from nurses notes was reviewed: and I agree with what is documented. - Social history: Smoking status: Patient uses tobacco products, current every day smoker. Not able to communicate due to their condition. - : The pt / caregiver states he / she is not on anticoagulants. Home medication list is obtained from [employer] import data. - Hospitalizations: : No recent hospitalization is reported. - Exposure Risk Screening:: None identified. - Immunization history:: Last tetanus immunization: up to date. - Family history: Not pertinent. - Social history:: the patient smokes cigarettes the patient drinks alcohol, the patient uses illicit drugs, including opiates, BDZs. Screenin:21 Fall Risk. jjr 16:10 Screening information is obtained from the patient. Fall risk: At risk due to apparent jjr cognitive impairment, The following interventions are performed due to a positive Fall Risk Screen: added to special handling. Assistance ADL's: requires no assistance with activities of daily living. Abuse/DV Screen: The patient / caregiver reports he/she is: not in a situation that causes fear, pain or injury. Nutritional screening: No deficits noted. Advance Directives: There is no active DNR order. home support is adequate. Assessment: 15:42 General: Appears in no apparent distress, pt falls asleep mid sentence will awaken to jr voice, refuses NC pulls off his face, reports pain to back of neck. General: shirt pants and socks removed to check for any medication skin patches. Respiratory: Airway is patent Respiratory effort is even, unlabored, Respiratory pattern is regular. Derm: Skin is pink, warm & dry. 17:06 General: Appears to be sleeping. will arouse to loud voice and gentle touch pt adamant jjr he does not want reddy catheter. 17:40 General: pt becomes hostile when told must have urine sample aware of refusal and jr current bp. 17:53 General: pt physically restrained by Donita Reddy and Hiral so that this jr health underwriter could perform straight catheter, return of straw colored urine. 18:34 General: Appears to be sleeping. jjr 20:53 Reassessment: Patient appears in no apparent distress at this time. Patient states cf2 feeling better. Patient states symptoms have improved. Adult Sepsis Screening: The patient does not have new or worsening altered mentation. Patient's respiratory rate is less than 22. Systolic blood pressure is greater than 100. Patient has a qSOFA score of 0- Negative Sepsis Screen. Pain: Denies pain. Neurological: No deficits noted. EENT: No deficits noted. Cardiovascular: No deficits noted. Respiratory: Airway is patent Respiratory effort is even, unlabored, Respiratory pattern is regular. GI: No deficits noted. : No deficits noted. Derm: No deficits noted. Skin is pink, warm & dry. Musculoskeletal: No deficits noted. Injury Description: No known injury. 23:31 Reassessment: Patient appears in no apparent distress at this time. Patient states cf2 feeling better. Patient states symptoms have improved. Vital Signs: 14:26 BP 97 / 56 (auto/); jjr 14:28 Pulse 60 MON; Pulse Ox 89% ; jjr 14:29 BP 97 / 56; Pulse 56; Resp 14; Temp 97.1(O); Pulse Ox 92% on R/A; Weight 81.65 kg (R); jrd Height 5 ft. 4 in. (162.56 cm); 14:35 Pulse 58 MON; Pulse Ox 91% ; jjr 14:35 BP 99 / 60 (auto/); jjr 14:41 BP 97 / 53 (auto/); jjr 14:41 Pulse 60 MON; Pulse Ox 90% ; jjr 14:54 BP 101 / 55 (auto/); jjr 14:54 Pulse 60 MON; Pulse Ox 94% on R/A; jjr 15:46 BP 112 / 62 (auto/); jjr 15:46 Pulse 56 MON; Pulse Ox 92% ; jjr 16:16 BP 111 / 71 (auto/); jjr 16:16 Pulse 58 MON; jjr 16:46 BP 103 / 68 (auto/); jjr 16:46 Pulse 50 MON; jjr 17:32 BP 78 / 52 (auto/); jjr 17:33 BP 85 / 52 (auto/); jjr 17:35 BP 86 / 52 (auto/); Pulse 50; Resp 18; Pulse Ox 92% on R/A; jjr 17:50 BP 124 / 68 (auto/); jjr 17:50 Pulse 66 MON; Pulse Ox 99% on R/A; jjr 17:57 BP 111 / 68 (auto/); jjr 17:57 Pulse 62 MON; Pulse Ox 94% ; jjr 18:04 Pulse 56 MON; Resp 18; Pulse Ox 92% on R/A; jjr 18:12 BP 109 / 67 (auto/); jjr 18:12 Pulse 60 MON; Pulse Ox 92% ; jjr 18:27 BP 98 / 67 (auto/); jjr 18:27 Pulse 58 MON; Resp 18; Pulse Ox 90% on R/A; jjr 18:42 BP 101 / 67 (auto/); jjr 18:42 Pulse 60 MON; Pulse Ox 90% ; jjr 18:57 BP 107 / 70 (auto/); jjr 18:57 Pulse 58 MON; Pulse Ox 89% ; jjr 19:12 Pulse 58 MON; Pulse Ox 89% ; cf2 19:12 BP 102 / 72 (auto/); cf2 19:27 BP 105 / 70 (auto/); cf2 19:28 Pulse 62 MON; Pulse Ox 90% ; cf2 19:42 Pulse 60 MON; Pulse Ox 90% ; cf2 19:42 BP 99 / 66 (auto/); cf2 19:57 Pulse 56 MON; Pulse Ox 89% ; cf2 19:57 BP 103 / 63 (auto/); cf2 20:12 Pulse 60 MON; Pulse Ox 87% ; cf2 20:12 BP 106 / 71 (auto/); cf2 20:27 BP 108 / 66 (auto/); cf2 20:28 Pulse 60 MON; Pulse Ox 87% ; cf2 20:42 BP 111 / 68 (auto/); cf2 20:43 Pulse 58 MON; Pulse Ox 89% ; cf2 22:12 BP 107 / 68 (auto/); cf2 22:12 Pulse 56 MON; Pulse Ox 87% ; cf2 22:12 BP 114 / 68; cf2 22:28 Pulse 50 MON; Pulse Ox 92% ; cf2 22:35 Pulse 54 MON; Pulse Ox 89% ; cf2 22:43 Pulse 52 MON; Pulse Ox 89% ; cf2 22:49 Pulse 48 MON; Pulse Ox 90% ; cf2 22:54 Pulse 52 MON; Pulse Ox 89% ; cf2 23:00 Pulse 52 MON; Pulse Ox 92% ; cf2 23:06 Pulse 54 MON; Pulse Ox 90% ; cf2 23:11 Pulse 52 MON; Pulse Ox 89% ; cf2 23:17 Pulse 54 MON; Pulse Ox 88% ; cf2 23:24 Pulse 56 MON; Pulse Ox 88% ; cf2 23:28 Pulse 50 MON; Pulse Ox 91% ; cf2 14:29 Body Mass Index 30.90 (81.65 kg, 162.56 cm) jrd 14:29 Patient was unable to verbilize a pain scale rating but indicate his neck hurt jrd Vitals: 14:27 Log In Time N/A - ambulance arrival. jr ED Course: 14:20 Patient visited by Keira Iglesias, Contracting Support Specialist. deg 14:20 Patient moved to Waiting deg 14:21 Patient moved to 15 deg 14:22 Jan Campuzano MD is Attending Physician. pc 14:22 Patient visited by Jan Campuzano MD. pc 14:26 Triage Initiated jjr 14:29 Unable to orient pt to ED due to medical condition. Patient has correct armband on for jrd positive identification. Placed in gown. Bed in low position. Call light in reach. Side rails up X2. front desk monitor on. Pulse ox on. NIBP on. 14:30 Patient visited by Cody Matt PCA. jrd 14:39 Patient visited by Cody Matt PCA. jrd 14:47 -Arterial Blood Gas Sent. js11 15:43 The patient / caregiver is instructed regarding the plan of care and ED course. jjr 15:44 Patient visited by Keila Matamoros, BRUCE. jjr 15:44 Inserted saline lock: 20 gauge in left forearm and blood collected. Labs drawn. (by ED jjr staff). Sent per order to lab. 16:47 Patient visited by Jan Campuzano MD. pc 17:07 Patient visited by Keila Matamoros, BRUCE. jjr 17:40 Patient visited by Keila Matamoros, BRUCE. jjr 17:54 Straight cath inserted 16 Fr. Specimen obtained. returned clear yellow urine. jjr 17:55 Patient visited by Keila Matamoros, BRUCE. jjr 18:34 Patient visited by Keila Matamoros, BRUCE. jjr 18:40 [facility] Payment Agreement was scanned into [employer] and attached to record. gjb 19:02 Lilo Montoya,RN is Primary Nurse. cf2 19:02 Patient visited by Lilo Montoya RN. cf2 19:12 Attending Physician role handed off by Jan Campuzano MD mm11 19:12 Freddie Armstrong DO is Attending Physician. mm11 19:12 No procedures done that require assistance. cf2 20:08 Patient visited by Mirian Barksdale. nb2 20:39 Patient visited by Lilo Montoya RN. cf2 20:53 Patient visited by Lilo Montoya RN. cf2 21:12 Patient visited by Lilo Montoya RN. cf2 21:17 Patient visited by Lilo Montoya RN. cf2 21:31 Melinda Campo is Hospitalizing Provider. mm11 22:23 Patient moved to Admit Hold sls1 23:06 CT Head without contrast Returned. EDMS 23:19 Patient visited by Lilo Montoya RN. cf2 23:30 Patient visited by Lilo Montoya RN. cf2 23:36 Patient moved to 20 cf2 02/03 00:30 Patient moved to Admit Hold sls1 11:15 Chest, 2 view PA, Lat Returned. EDMS 11:41 Patient visited by Carmen Sen PCA. smj 11:48 T-Sheet-- Draft Copy was scanned into [employer] and attached to record. gb 11:49 Radiology Report was scanned into [employer] and attached to record. gb Administered Medications: 11/26 14:40 Drug: naloxone 2 mg [naloxone 1 mg/mL injection syringe (2 mL)] Route: IVP; Site: left jjr forearm; RT: 14:47 ABG's drawn from right radial artery allens test done and positive pressure held for 5 js11 minutes no bleeding noted specimen sent pt. tolerated well. Order Results: Lab Order: -Arterial Blood Gas; SPEC'M 11/26/16 14:41 Test: ABG pH (ARTERIAL); Value: 7.352; Range: 7.350-7.450; Units: UNITS; Status: F Test: ABG PARTIAL PRESSURE CO2; Value: 51.3; Range: 35.0-45.0; Abnormal: Above high normal; Units: mmHg; Status: F Test: ABG PARTIAL PRESSURE O2; Value: 68.4; Range: 75.0-100.0; Abnormal: Below low normal; Units: mmHg; Status: F Test: ABG TOTAL CO2; Value: 29.4; Range: 22.0-29.0; Abnormal: Above high normal; Units: MEQ/L; Status: F Test: ABG HCO3; Value: 27.8; Range: 22.0-26.0; Abnormal: Above high normal; Units: MEQ/L; Status: F Test: ABG BASE EXCESS; Value: 1.5; Range: -2.0-2.0; Status: F Test: ABG STANDARD HCO3; Value: 25.7; Range: 22.0-26.0; Units: MEQ/L; Status: F Test: ABG O2 SATURATION; Value: 92.7; Range: 95.0-99.0; Abnormal: Below low normal; Units: %; Status: F Test: ABG DEVICE; Value: NASAL JAMARI; Status: F Lab Order: Acetaminophen Level; [facility]' 11/26/16 15:18 Test: ACETAMINOPHEN LEVEL; Value: < 2.0; Range: 10.0-30.0; Abnormal: Below low normal; Units: UG/ML; Status: F Test: CPK CREATINE PHOSPHOKINASE; Range: 39-308; Units: U/L; Status: I Test: CK-MB VALUE MASS; Range: 0.0-3.6; Units: NG/ML; Status: I Test: MB/CK RELATIVE INDEX; Range: < OR =4; Status: I Test: TROPONIN I; Range: < 0.10; Units: NG/ML; Status: I Lab Order: Basic Metabolic Profile; [facility]' 11/26/16 15:18 Test: GLUCOSE, FASTING; Value: 91; Range: 70-105; Units: MG/DL; Status: F Test: BLOOD UREA NITROGEN; Value: 10; Range: 7-18; Units: MG/DL; Status: F Test: CREATININE FOR GFR; Value: 0.88; Range: 0.70-1.30; Units: MG/DL; Status: F Test: GLOMERULAR FILTRATION RATE; Value: > 60.0; Range: >60; Status: F Test: SODIUM LEVEL; Value: 145; Range: 136-145; Units: MEQ/L; Status: F Test: POTASSIUM SERUM; Value: 4.6; Range: 3.5-5.1; Units: MEQ/L; Status: F Test: CHLORIDE LEVEL; Value: 109; Range: 98-107; Abnormal: Above high normal; Units: MEQ/L; Status: F Test: CARBON DIOXIDE LEVEL; Value: 29; Range: 21-32; Units: MEQ/L; Status: F Test: ANION GAP; Value: 7; Range: 8-16; Abnormal: Below low normal; Units: MEQ/L; Status: F Test: CALCIUM LEVEL; Value: 8.7; Range: 8.5-10.1; Units: MG/DL; Status: F Test Note: ; Units are mL/min/1.73 m2 Chronic Kidney Disease Staging per NKF: Stage I & II GFR >=60 Normal to Mildly Decreased Stage III GFR 30-59 Moderately Decreased Stage IV GFR 15-29 Severely Decreased Stage V GFR <15 Very Little GFR Left ESRD GFR <15 on [employer] Lab Order: Complete Blood Count; [facility]' 11/26/16 15:18 Test: WHITE BLOOD COUNT; Value: 7.3; Range: 4.0-10.0; Units: K/mm3; Status: F Test: RED BLOOD COUNT; Value: 3.72; Range: 4.30-6.10; Abnormal: Below low normal; Units: M/mm3; Status: F Test: HEMOGLOBIN; Value: 12.1; Range: 14.0-18.0; Abnormal: Below low normal; Units: g/dl; Status: F Test: HEMATOCRIT; Value: 36.2; Range: 42.0-52.0; Abnormal: Below low normal; Units: %; Status: F Test: MEAN CORPUSCULAR VOLUME; Value: 97.5; Range: 80.0-96.0; Abnormal: Above high normal; Units: fl; Status: F Test: MEAN CORPUSCULAR HEMOGLOBIN; Value: 32.5; Range: 27.0-33.0; Units: pg; Status: F Test: MEAN CORPUSCULAR HGB CONC; Value: 33.3; Range: 32.0-36.5; Units: g/dl; Status: F Test: RED CELL DISTRIBUTION WIDTH; Value: 13.3; Range: 11.5-14.5; Units: %; Status: F Test: PLATELET COUNT, AUTOMATED; Value: 524; Range: 150-450; Abnormal: Above high normal; Units: k/mm3; Status: F Lab Order: Drug Eval Toxicology ED Only; SPEC'M 11/26/16 15:18 Test: AMPHETAMINES LEVEL URINE; Value: NEGATIVE; Range: NEGATIVE; Status: F Test: BARBITURATES URINE; Value: NEGATIVE; Range: NEGATIVE; Status: F Test: BENZODIAZEPINES URINE; Value: POSITIVE; Range: NEGATIVE; Abnormal: Above high normal; Status: F Test: CANNABINOIDS URINE; Value: NEGATIVE; Range: NEGATIVE; Status: F Test: COCAINE METABOLITE URINE; Value: NEGATIVE; Range: NEGATIVE; Status: F Test: METHADONE URINE; Value: NEGATIVE; Range: NEGATIVE; Status: F Test: OPIATES URINE; Value: NEGATIVE; Range: NEGATIVE; Status: F Test: TRICYCLIC ANTIDEPRESS URINE; Value: NEGATIVE; Range: NEGATIVE; Status: F Test Note: ; ALL PRESUMPTIVE POSITIVE FINDINGS ARE UNCONFIRMED NORMAL VALUES THRESHOLD IN NG/ML AMPHETAMINES 1000 METHAMPHETAMINES 1000 BARBITURATES 300 BENZODIAZEPINES 300 CANNABINOIDS (THC) 50 COCAINE METABOLITE 300 METHADONE 300 OPIATES 300 PHENCYCLIDINE 25 TRICYCLIC ANTIDEPRESSANTS 1000 RESULTS ARE FOR MEDICAL PURPOSES ONLY. ALL URINE SPECIMENS WILL BE SAVED FOR 3 DAYS. IF CONFIRMATION OF A PRESUMPTIVE POSTIVE SCREEN RESULT IS DESIRED, CALL CHEMISTRY ([phone]) AND REQUEST URINE TO BE SENT TO REFERENCE LAB. FOR A LIST OF CLOSELY RELATED COMPOUNDS PLEASE CALL THE LAB. Lab Order: Ethyl Alcohol (ethanol); SPEC'M 11/26/16 15:18 Test: ETHYL ALCOHOL (ETHANOL); Value: < 0.003; Range: 0.000-0.010; Units: %; Status: F Lab Order: Liver Profile; SPEC'M 11/26/16 15:18 Test: AST/SGOT; Value: 18; Range: 15-37; Units: U/L; Status: F Test: ALT/SGPT; Value: 28; Range: 12-78; Units: U/L; Status: F Test: ALKALINE PHOSPHATASE; Value: 75; Range: 45-117; Units: U/L; Status: F Test: BILIRUBIN,TOTAL; Value: 0.1; Range: 0.2-1.0; Abnormal: Below low normal; Units: MG/DL; Status: F Test: BILIRUBIN,DIRECT; Value: < 0.1; Range: 0.0-0.2; Units: MG/DL; Status: F Test: TOTAL PROTEIN; Value: 6.2; Range: 6.4-8.2; Abnormal: Below low normal; Units: GM/DL; Status: F Test: ALBUMIN; Value: 3.1; Range: 3.2-5.2; Abnormal: Below low normal; Units: GM/DL; Status: F Test: ALBUMIN/GLOBULIN RATIO; Value: 1.00; Range: 1.00-1.93; Status: F Lab Order: Salicylate Level; [facility] 11/26/16 15:18 Test: SALICYLATE LEVEL; Value: 2.0; Range: 5.0-30.0; Abnormal: Below low normal; Units: MG/DL; Status: F Lab Order: Thyroid Stimulating Hormone; [facility] 11/26/16 15:18 Test: THYROID STIMULATING HORMONE; Value: 1.630; Range: 0.358-3.740; Units: uIU/ML; Status: F Lab Order: COMPLETE BLOOD COUNT; [facility] 11/27/16 04:33 Test: WHITE BLOOD COUNT; Value: 7.3; Range: 4.0-10.0; Units: K/mm3; Status: F Test: RED BLOOD COUNT; Value: 3.56; Range: 4.30-6.10; Abnormal: Below low normal; Units: M/mm3; Status: F Test: HEMOGLOBIN; Value: 11.7; Range: 14.0-18.0; Abnormal: Below low normal; Units: g/dl; Status: F Test: HEMATOCRIT; Value: 35.0; Range: 42.0-52.0; Abnormal: Below low normal; Units: %; Status: F Test: MEAN CORPUSCULAR VOLUME; Value: 98.3; Range: 80.0-96.0; Abnormal: Above high normal; Units: fl; Status: F Test: MEAN CORPUSCULAR HEMOGLOBIN; Value: 32.7; Range: 27.0-33.0; Units: pg; Status: F Test: MEAN CORPUSCULAR HGB CONC; Value: 33.3; Range: 32.0-36.5; Units: g/dl; Status: F Test: RED CELL DISTRIBUTION WIDTH; Value: 13.4; Range: 11.5-14.5; Units: %; Status: F Test: PLATELET COUNT, AUTOMATED; Value: 483; Range: 150-450; Abnormal: Above high normal; Units: k/mm3; Status: F Lab Order: BASIC METABOLIC PROFILE; [facility] 11/27/16 04:33 Test: GLUCOSE, FASTING; Value: 82; Range: 70-105; Units: MG/DL; Status: F Test: BLOOD UREA NITROGEN; Value: 9; Range: 7-18; Units: MG/DL; Status: F Test: CREATININE FOR GFR; Value: 0.75; Range: 0.70-1.30; Units: MG/DL; Status: F Test: GLOMERULAR FILTRATION RATE; Value: > 60.0; Range: >60; Status: F Test: SODIUM LEVEL; Value: 147; Range: 136-145; Abnormal: Above high normal; Units: MEQ/L; Status: F Test: POTASSIUM SERUM; Value: 3.9; Range: 3.5-5.1; Units: MEQ/L; Status: F Test: CHLORIDE LEVEL; Value: 111; Range: 98-107; Abnormal: Above high normal; Units: MEQ/L; Status: F Test: CARBON DIOXIDE LEVEL; Value: 31; Range: 21-32; Units: MEQ/L; Status: F Test: ANION GAP; Value: 5; Range: 8-16; Abnormal: Below low normal; Units: MEQ/L; Status: F Test: CALCIUM LEVEL; Value: 8.5; Range: 8.5-10.1; Units: MG/DL; Status: F Test Note: ; Units are mL/min/1.73 m2 Chronic Kidney Disease Staging per NKF: Stage I & II GFR >=60 Normal to Mildly Decreased Stage III GFR 30-59 Moderately Decreased Stage IV GFR 15-29 Severely Decreased Stage V GFR <15 Very Little GFR Left ESRD GFR <15 on [employer] Lab Order: MAGNESIUM LEVEL; [facility]11/27/16 04:33 Test: MAGNESIUM LEVEL; Value: 1.8; Range: 1.8-2.4; Units: MG/DL; Status: F Lab Order: CARDIAC MARKER PANEL; [facility] 11/26/16 15:18 Test: CPK CREATINE PHOSPHOKINASE; Value: 155; Range: 39-308; Units: U/L; Status: F Test: CK-MB VALUE MASS; Value: 3.8; Range: 0.0-3.6; Abnormal: Above high normal; Units: NG/ML; Status: F Test: MB/CK RELATIVE INDEX; Value: 2.45; Range: < OR =4; Status: F Test: TROPONIN I; Value: < 0.02; Range: < 0.10; Units: NG/ML; Status: F Test Note: ; DIAGNOSIS CRITERIA MMB ng/ml Relative Index (RI) NON-AMI < or = 5 N/A POLLARD ZONE > 5 < or = 4 AMI > 5 > 4 Lab Order: CARDIAC MARKER PANEL; [facility]'M 11/27/16 04:33 Test: CPK CREATINE PHOSPHOKINASE; Value: 144; Range: 39-308; Units: U/L; Status: F Test: CK-MB VALUE MASS; Value: 3.4; Range: 0.0-3.6; Units: NG/ML; Status: F Test: MB/CK RELATIVE INDEX; Value: 2.36; Range: < OR =4; Status: F Test: TROPONIN I; Value: < 0.02; Range: < 0.10; Units: NG/ML; Status: F Test Note: ; DIAGNOSIS CRITERIA MMB ng/ml Relative Index (RI) NON-AMI < or = 5 N/A POLLARD ZONE > 5 < or = 4 AMI > 5 > 4 Radiology Order: CT Head without contrast Test: CT Head without contrast REASON FOR EXAMINATION: ams; ; CT of the head; Clinical history: altered mental status.; Technique: Multiple axial CT images were obtained through the head without administration of contrast; .; Comparison: 06/17/2016; Findings: The ventricles and sulci are symmetric bilaterally. There is no evidence of acute hemorrhag; e or infarct. There is no midline shift, mass effect, or extra-axial fluid collection. The osseous st; ructures are unremarkable. The visualized paranasal sinuses and mastoid air cells are clear.; Impression: Negative study.; ; Radiology Order: Chest, 2 view PA, Lat Test: Chest, 2 view PA, Lat REASON FOR EXAMINATION: chest congestion; PA and lateral chest:; ; Comparisons are 09/06/2016 and 03/04/2015.; ; There are subsegmental patchy infiltrates in the right upper lobe and in the; lower lobes bilaterally as changes from the prior studies.; ; There are no pleural effusions. No masses. There is a small stable granuloma; peripherally in the right lung.; ; I suspect a nondisplaced healing fracture posterior laterally in the right ninth; rib as an interval change.; ; Cardiac size is normal.; ; The leslie appear enlarged compared to prior studies.; ; Mediastinum and bony thorax are unremarkable.; ; ; Signed by; Kamari Berumen MD 11/27/2016 10:17 A; Outcome: 21:31 Decision to Hospitalize by Provider. mm11 23:31 Discharge Assessment: Patient awake, alert and oriented x 3. No cognitive and/or cf2 functional deficits noted. Patient verbalized understanding of disposition instructions. Patient awake and alert. Oriented to person, place and time. patient administered narcotics - no. The following High Risk Discharge criteria are identified: None. Admitted ER admission BRUCE Watts took report , with chart. Condition: good Condition: stable Condition: improved. CT Study completed. Property :Personal belongings accompany Pt. 11/27 12:57 Patient left the ED. hs1 Signatures: Dispatcher [employer] EDMS Jan Campuzano MD MD pc Keira Iglesias, Contracting Support Specialist Unit deg Dalia Brambila, Reg Reg gb Freddie Armstrong, DO mm11 Keila Matamoros RN RN jjr Sherrill, Hannah RN RN hs1 Ricki Akers js11 Esperanza Gonzales RN RN sls1 Cody Matt, JEWELRY DEPARTMENT SUPERVISOR JEWELRY DEPARTMENT SUPERVISOR jrDianne Ny Christina, RN RN cf2 Carmen Sen, JEWELRY DEPARTMENT SUPERVISOR JEWELRY DEPARTMENT SUPERVISOR Mirian Brandon2 Corrections: (The following items were deleted from the chart) 11/26 14:38 14:29 BP 97 / 56; Pulse 56bpm; Resp 14bpm; Pulse Ox 92% RA; Temp 97.1F Oral; 81.65 kg jrd Reported; Height 5 ft. 4 in.; BMI: 30.9; jrd Chart Complete MTDD
[2016-11-29 14:00] VITALS: BP 126/80
[2016-11-29] MEDS: GABAPENTIN 400 MG CAP PO SCH ×2 (14:00→20:24)
[2016-11-29] MEDS: BUPRENORPHINE/NALOXONE 8-2MG SUBLINGUAL TABLET(SUBOXONE) SL SCH ×2 (15:00→20:24)
[2016-11-29] MEDS: LevoFLOXacin 750 MG TABLET PO SCH (17:48)
[2016-11-29] MEDS: ACETAMINOPHEN TAB 650MG DOSE (2X325MG) PO PRN (20:23)
[2016-11-29 22:00] VITALS: BP 104/75
[2016-11-30] MEDS: IPRATROPIUM 0.5MG/ALBUTEROL 2.5MG INH SOL UD 3ML (DUONEB)(J7620) NEB SCH ×3 (02:00→13:37)
[2016-11-30] MEDS: HEPARIN SOD (PORCINE) 5000 UNITS/ML VIAL SC SCH ×2 (05:12→08:20)
[2016-11-30] MEDS: SLF 3 ML SYR IV SCH (05:12)
[2016-11-30 06:00] VITALS: BP 112/76
[2016-11-30 06:50] LABS: MEAN CORPUSCULAR HEMOGLOBIN 32.3 pg (27.0-33.0); MEAN CORPUSCULAR HGB CONC 32.7 g/dl (32.0-36.5); MEAN CORPUSCULAR VOLUME 98.7 fl (80.0-96.0); WHITE BLOOD COUNT 7.7 K/mm3 (4.0-10.0)
[2016-11-30 07:19] LABS: ANION GAP 9 MEQ/L (8-16); BLOOD UREA NITROGEN 8 MG/DL (7-18); CALCIUM LEVEL 8.5 MG/DL (8.5-10.1); CARBON DIOXIDE LEVEL 28 MEQ/L (21-32); CHLORIDE LEVEL 107 MEQ/L (98-107); CREATININE FOR GFR 0.85 MG/DL (0.70-1.30); GLOMERULAR FILTRATION RATE > 60.0 (>60); GLUCOSE, FASTING 78 MG/DL (70-105); MAGNESIUM LEVEL 1.8 MG/DL (1.8-2.4); POTASSIUM SERUM 3.8 MEQ/L (3.5-5.1); SODIUM LEVEL 144 MEQ/L (136-145)
[2016-11-30] MEDS ORDERED: LEVA750T PO (07:47)
[2016-11-30] MEDS: ADVAIR DISKUS 250/50 INH PWD INH SCH (08:17)
[2016-11-30] MEDS: GABAPENTIN 400 MG CAP PO SCH (08:19)
[2016-11-30] MEDS: MAGNESIUM OXIDE 400 MG TAB (MAG-OX) PO SCH (08:19)
[2016-11-30] MEDS: BUPRENORPHINE/NALOXONE 8-2MG SUBLINGUAL TABLET(SUBOXONE) SL SCH (08:19)
[2016-11-30] MEDS: FOLIC ACID 1 MG TAB PO SCH (08:19)
[2016-11-30] MEDS: MULTIVITAMINS/MINERALS THERAP 1 TAB PO SCH (08:19)
[2016-11-30] MEDS: SENOKOT S TAB PO SCH (08:20)
[2016-11-30] MEDS: NICOTINE 21MG/24HR 1 EA TRANSDERMAL TD SCH (08:20)
[2016-11-30] MEDS: THIAMINE 100 MG TAB PO SCH (08:20)
[2016-11-30] MEDS ORDERED: NICOTINE POLACRILEX 2 MG GUM PO PRN (10:15)
--- NOTE | 2016-12-23 06:12 | DSES ---
DATE OF ADMISSION: 11/26/2016 DATE OF DISCHARGE: 11/30/2016 REASON FOR ADMISSION: Altered mental status. FINAL DIAGNOSES: 1. Positive benzodiazepine overdose. 2. Lethargy. 3. History of depression. 4. History of substance abuse. 5. History of chronic obstructive pulmonary disease (COPD). HISTORY OF PRESENT ILLNESS: The patient is a 51-year-old male with frequent hospitalization into the inpatient mental health who presented to the emergency room via emergency medical services (EMS). He was found by [facility] falling asleep. He was asked to leave, but he would return again a few minutes later without remembering what he has been asked to do. His last visit to the emergency room was on 11/22/2016 where he reported having to do things without remembering what he is doing or why. He was not admitted at that time. However, during this hospitalization the patient appeared to be arousable to verbal stimuli, but very lethargic. In the emergency room, the patient was found to have opiates in his system, unknown amount that was taken. The patient was admitted under medical observation. HOSPITAL COURSE: His laboratory findings were within normal limits. He had a low magnesium which was corrected, but otherwise his blood gas was okay. He had a positive toxicology screen for benzodiazepines. Psych was called the next day to accept the patient; however, there were no beds available so the patient remained on the medical floor over the weekend for two additional days. Once a bed became available on Wednesday, the patient was discharged to inpatient mental health under psychiatric care. DISCHARGE INSTRUCTIONS: The patient will likely need follow-up upon discharge from the inpatient mental health unit. Diet regular. Activities as tolerated. DISCHARGE MEDICATIONS: - Ventolin 2 puffs inhaled every 4 hours as needed for shortness of breath - Flonase allergy relief daily - Advair Diskus 1 puff inhaled twice a day Zofran was discontinued. DISCHARGE CONDITION: Stable.
== END 2016-11-30 14:25 | DRG 917 ==
LOC: M ED 14:19 → M ED INP 22:52 → M PCU 11-27 12:48 → M MS5PR 11-28 15:30
PROVIDERS: ADMIT Hospitalist; ATTEND Internal Medicine
DX: T42.4X1A Poisoning by benzodiazepines, accidental (unintentional), initial encounter (principal); G93.41 Metabolic encephalopathy; J44.9 Chronic obstructive pulmonary disease, unspecified; Z88.5 Allergy status to narcotic agent; M54.5 Low back pain; G47.00 Insomnia, unspecified; K42.9 Umbilical hernia without obstruction or gangrene; F17.200 Nicotine dependence, unspecified, uncomplicated; F32.9 Major depressive disorder, single episode, unspecified; F11.10 Opioid abuse, uncomplicated

== ENCOUNTER 2016-11-30 14:30 | Inpatient (IN) | payer MEDICARE, MEDICAID ==
[~2016-11-30] VITALS: Ht 162.6 cm; Wt 75.1 kg
[~2016-11-30 14:30] MED LIST changes: +LEVA750T PO; +SUBO8MIS SL
[2016-11-30 14:47] VITALS: BP 107/74
[2016-11-30] MEDS ORDERED: traZODone 50 MG TAB PO PRN (16:30)
[2016-11-30] MEDS ORDERED: MAALOX 30 ML SUSP *UDC PO PRN (16:30)
[2016-11-30] MEDS ORDERED: ACETAMINOPHEN TAB 650MG DOSE (2X325MG) PO PRN (16:30)
[2016-11-30] MEDS ORDERED: IPRATROPIUM 0.5MG/ALBUTEROL 2.5MG INH SOL UD 3ML (DUONEB)(J7620) NEB PRN (16:30)
[2016-11-30] MEDS ORDERED: MOM 30ML SUSPENSION UDC PO PRN (16:30)
[2016-11-30] MEDS: NICOTINE 21MG/24HR 1 EA TRANSDERMAL TD SCH (18:05)
[2016-11-30] MEDS: LevoFLOXacin 750 MG TABLET PO SCH (18:06)
[2016-11-30] MEDS: SENOKOT S TAB PO SCH (20:10)
[2016-11-30] MEDS: BUPRENORPHINE/NALOXONE 8-2MG SUBLINGUAL TABLET(SUBOXONE) SL SCH (20:10)
[2016-11-30] MEDS: GABAPENTIN 400 MG CAP PO SCH (20:10)
[2016-11-30] MEDS: ADVAIR DISKUS 250/50 INH PWD INH SCH (20:11)
[2016-11-30] MEDS: MAGNESIUM OXIDE 400 MG TAB (MAG-OX) PO SCH (20:11)
[2016-11-30] MEDS: traZODone 100 MG TAB PO PRN (20:36)
[2016-11-30] MEDS ORDERED: ADVAIR HFA 115/21 INHALER INH SCH (21:00)
[2016-11-30] MEDS: IPRATROPIUM 0.5MG/ALBUTEROL 2.5MG INH SOL UD 3ML (DUONEB)(J7620) NEB SCH (23:00)
[2016-12-01] MEDS: IPRATROPIUM 0.5MG/ALBUTEROL 2.5MG INH SOL UD 3ML (DUONEB)(J7620) NEB SCH ×4 (02:00→18:06)
[2016-12-01 06:28] VITALS: BP 123/66
[2016-12-01] MEDS: SENOKOT S TAB PO SCH ×2 (08:25→20:17)
[2016-12-01] MEDS: GABAPENTIN 400 MG CAP PO SCH ×2 (08:25→20:18)
[2016-12-01] MEDS: MAGNESIUM OXIDE 400 MG TAB (MAG-OX) PO SCH ×2 (08:25→20:18)
[2016-12-01] MEDS: MULTIVITAMINS/MINERALS THERAP 1 TAB PO SCH (08:25)
[2016-12-01] MEDS: NICOTINE 21MG/24HR 1 EA TRANSDERMAL TD SCH (08:25)
[2016-12-01] MEDS: FOLIC ACID 1 MG TAB PO SCH (08:25)
[2016-12-01] MEDS: THIAMINE 100 MG TAB PO SCH (08:25)
[2016-12-01] MEDS: ADVAIR DISKUS 250/50 INH PWD INH SCH ×2 (08:25→20:18)
[2016-12-01] MEDS: BUPRENORPHINE/NALOXONE 8-2MG SUBLINGUAL TABLET(SUBOXONE) SL SCH ×2 (08:25→20:18)
--- NOTE | 2016-12-01 10:36 | HPEPDOC ---
Medical History and Physical Date of Admission Nov 30, 2016 at 14:30 History and Physical PCP: None ATTENDING: Dr. Marquez Self HPI: 51yoM admitted to [facility] for overdose, being medically examined today. The patient was hospitalized 11/26/16 to 11/29/16 related to altered mental status and lethargy. The patient was treated for metabolic encephalopathy possibly secondary to polysubstance use. Urine toxicology was remarkable for benzodiazepine. Patient states he continues to have chronic neck pain and low back pain and is requesting to discuss with pain management. The patient reports erythema and irritation of his left eye. The patient complains of itching. Denies any fevers, chills, weakness, fatigue, YE, CP, SOB, cough, palpitations , abdominal pain, N/V/D or changes in bowel or bladder habits. PMHx: Chronic neck pain Chronic back pain Depression anxiety Polysubstance use Umbilical hernia COPD Insomnia allergic rhinitis PSHX: Spinal fusion 2006- Bilateral carpal tunnel release Kidney surgery as a child HOME MEDS: As above ALLERGIES: Ketorolac Tramadol SOCHX: Resides in: [place]. Lives with his mother Marital Status: Kids: 3 Employment: Disabled Tobacco use: One pack per day ETOH: Denies Illicit Drugs: Denies IV Drug Use: Denies Tattoos done unprofessionally: Denies FAMHX: Mother: Alive, 77 dementia Father: , Parkinson's disease Siblings: 3 brothers, 2 sisters. 2 siblings . Medical history Unknown Children: Alive, youngest child has a pacemaker Unexpected deaths due to medical reasons: None. ROS: As noted in HPI, otherwise 11pt ROS of systems reviewed and unremarkable. PE: GEN: 51yoM, appears stated age. Well-nourished, well developed. No acute distress. Alert and oriented x 3. Pleasant, interactive. HEENT: Normocephalic, atraumatic. Pupils are equal, round, and reactive to light. Extraocular movements are intact. No nystagmus appreciated. Sclera are nonicteric. Conjunctival injection noted Left eye. Nose midline. Nasal turbinates without bogginess. EACs both patent BL. TMs both visualized and jones with good cone of light, no bulging or erythema. No facial asymmetry. Moist mucous membranes. Dentition fair. Pharynx pink and moist, no cobblestoning. Neck supple, trachea midline. No lymphadenopathy or thyromegaly appreciated. CHEST: Regular rate and rhythm, +S1, +S2 LUNGS: Clear to auscultation bilaterally. No wheezes, rales, or rhonchi. Breathing appears symmetric and easy. Patient is speaking in full sentences. No accessory muscle use. ABD: Round, soft, non-tender, non-distended. +Bowel sounds throughout. No rebound or guarding. No costovertebral angle tenderness. Surgical scar is noted at the midline, well-healed. Umbilical hernia is noted, no tenderness, or erythema. EXT: Pulses 2+ bilaterally dorsalis pedis and radial. No lower extremity edema appreciated. SKIN: [place], dry, warm. Capillary refill <2sec. No rashes. NEURO: Alert and oriented x 3. Cranial nerves III-XII are intact. No focal deficits appreciated. He is ambulating in the hallway without difficulty. EKG: pending CXR 11/27/16 Comparisons are 09/06/2016 and 03/04/2015. There are subsegmental patchy infiltrates in the right upper lobe and in the lower lobes bilaterally as changes from the prior studies. There are no pleural effusions. No masses. There is a small stable granuloma peripherally in the right lung. suspect a nondisplaced healing fracture posterior laterally in the right ninth rib as an interval change. Cardiac size is normal. The leslie appear enlarged compared to prior studies. Mediastinum and bony thorax are unremarkable. CT Brain 11/26/16 NAD. A&P: 51yoM admitted to [facility] for overdose. 1. Psych. Plan per Psychiatry. EKG pending. 2. Nicotine dependence. Patch available. 3. COPD-continue Advair, albuterol as needed. Duoneb Q6, Q2 prn. 4. Conjunctivitis Left eye. Polytrim eye drops left eye x 7 days. 5. RUL/ Lower lobe Infiltrate. Pt to finish course of Levaquin x 7 additional days. 6. Chronic back pain/Chronic Neck pain- Pt is requesting pain management opinion. Remains on gabapentin 400mg BID. 7. Allergic rhinitis. Continue Flonase. 8. Follow up with PCP on discharge. 9. Staff member present throughout exam, Rommel laughlin. Vital Signs Vital Signs Label Value Date Time Patient Temperature 96.9 degrees F 12/01/16 0628 Temperature Source Tympanic 12/01/16 0628 Pulse 94 12/01/16 0628 Respiratory Rate 18 bpm 12/01/16 0628 Blood Pressure Assessment 123/66 (85) 12/01/16 0628 Item Value Date Time White Blood Count 7.7 K/mm3 11/30/16 0632 Red Blood Count 3.72 M/mm3 L 11/30/16 0632 Hemoglobin 12.0 g/dl L 11/30/16 0632 Hematocrit 36.7 % L 11/30/16 0632 Mean Corpuscular Volume 98.7 fl H 11/30/16 0632 Mean Corpuscular Hemoglobin 32.3 pg 11/30/16 0632 Mean Corpuscular Hemoglobin Concent 32.7 g/dl 11/30/16 0632 Red Cell Distribution Width 14.0 % 11/30/16 0632 Platelet Count 538 k/mm3 H 11/30/16 0632 Sodium Level 144 MEQ/L 11/30/16 0632 Potassium Level 3.8 MEQ/L 11/30/16 0632 Chloride Level 107 MEQ/L 11/30/16 0632 Carbon Dioxide Level 28 MEQ/L 11/30/16 0632 Anion Gap 9 MEQ/L 11/30/16 0632 Blood Urea Nitrogen 8 MG/DL 11/30/16 0632 Creatinine 0.85 MG/DL 11/30/16 0632 Glomerular Filtration Rate > 60.0 11/30/16 0632 Fasting Glucose 78 MG/DL 11/30/16 0632 Calcium Level 8.5 MG/DL 11/30/16 0632 Magnesium Level 1.8 MG/DL 11/30/16 0632 Thyroid Stimulating Hormone (TSH) 1.630 uIU/ML 11/26/16 1518 Home Medications Scheduled (Flonase Allergy Relief) 50 Mcg/Act Spr 2 SPRAYS NA DAILY Buprenorphine/Naloxone (Suboxone 8-2 mg) 1 Mis Mis 1 MIS SL BID Gabapentin (Gabapentin) 800 Mg Tab 800 MG PO BID Levofloxacin Hemihydrate (Levaquin) 750 Mg Tab 750 MG PO DAILY@18 Quetiapine Fumarate (Seroquel) 300 Mg Tab 300 MG PO QHS Salmeterol/Fluticasone (Advair Diskus 250-50 Mcg/Dose) 14 Puff/Inhaler Aerp 1 PUFF INH BID Scheduled PRN Albuterol Sulfate (Ventolin Hfa) 200 Puff/8 Gm Aers 2 PUFF INH Q4H PRN PRN SHORTNESS OF BREATH Allergies Coded Allergies: Ketorolac Tromethamine (Verified Allergy, Intermediate, HIVES, 12/08/14) PATIENT STATES HE TOLERATES IBUPROFEN-RN HAS DOCUMENTED NO PROBLEM Tramadol (Verified Allergy, Intermediate, HIVES, 04/07/13) Yissel Guerrero Dec 01, 2016 10:36
--- NOTE | 2016-12-01 10:51 | ECGEPIP ---
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
[2016-12-01] MEDS: POLYTRIM OPTH DROPS 10ML OS SCH ×4 (13:01→20:18)
[2016-12-01] MEDS: FLUTICASONE PROP 0.05% NASAL SPRAY 16 GM (FLONASE) SCH (13:01)
[2016-12-01] MEDS: ONDANSETRON 4 MG TAB (S0181) PO PRN (17:36)
[2016-12-01] MEDS: LevoFLOXacin 750 MG TABLET PO SCH (17:36)
[2016-12-01] MEDS: traZODone 100 MG TAB PO PRN (20:17)
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
[2016-12-01 21:54] VITALS: BP 100/55
[2016-12-02] MEDS: IPRATROPIUM 0.5MG/ALBUTEROL 2.5MG INH SOL UD 3ML (DUONEB)(J7620) NEB SCH ×2 (01:18→07:40)
[2016-12-02] MEDS: ONDANSETRON 4 MG TAB (S0181) PO PRN ×2 (01:24→08:11)
[2016-12-02] MEDS: POLYTRIM OPTH DROPS 10ML OS SCH ×3 (06:24→12:08)
[2016-12-02 06:42] VITALS: BP 83/53
[2016-12-02] MEDS: ADVAIR DISKUS 250/50 INH PWD INH SCH (08:06)
[2016-12-02] MEDS: FLUTICASONE PROP 0.05% NASAL SPRAY 16 GM (FLONASE) SCH (08:06)
[2016-12-02] MEDS: MULTIVITAMINS/MINERALS THERAP 1 TAB PO SCH (08:07)
[2016-12-02] MEDS: NICOTINE 21MG/24HR 1 EA TRANSDERMAL TD SCH (08:07)
[2016-12-02] MEDS: GABAPENTIN 400 MG CAP PO SCH (08:07)
[2016-12-02] MEDS: BUPRENORPHINE/NALOXONE 8-2MG SUBLINGUAL TABLET(SUBOXONE) SL SCH (08:07)
[2016-12-02] MEDS: THIAMINE 100 MG TAB PO SCH (08:07)
[2016-12-02] MEDS: SENOKOT S TAB PO SCH (08:07)
[2016-12-02] MEDS: FOLIC ACID 1 MG TAB PO SCH (08:07)
[2016-12-02] MEDS: MAGNESIUM OXIDE 400 MG TAB (MAG-OX) PO SCH (08:07)
[2016-12-02] MEDS ORDERED: POLY2.5S OS (09:28)
[2016-12-02] MEDS ORDERED: LEVA750T PO (09:28)
[2016-12-02] MEDS ORDERED: NICO21PAT TD (09:28)
[2016-12-02] MEDS ORDERED: MAG-OX PO (13:15)
[2016-12-02] MEDS ORDERED: SENO8.6T2 PO (13:15)
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
== END 2016-12-02 13:55 | disposition home or self-care (01) | DRG 881 ==
LOC: M PSY 14:30
PROVIDERS: ADMIT Psychiatry & Neurology Psychiatry; ATTEND Psychiatry & Neurology Psychiatry
DX: F32.9 Major depressive disorder, single episode, unspecified (principal); F19.20 Other psychoactive substance dependence, uncomplicated; M54.5 Low back pain; M54.2 Cervicalgia; H10.9 Unspecified conjunctivitis; R91.8 Other nonspecific abnormal finding of lung field; J30.9 Allergic rhinitis, unspecified; J44.9 Chronic obstructive pulmonary disease, unspecified; F17.210 Nicotine dependence, cigarettes, uncomplicated; Z79.899 Other long term (current) drug therapy; Z91.5 Personal history of self-harm; Z81.8 Family history of other mental and behavioral disorders; Z86.14 Personal history of Methicillin resistant Staphylococcus aureus infection

== ENCOUNTER 2016-12-09 18:38 | Inpatient (IN) | payer MEDICARE, MEDICAID ==
[~2016-12-09] VITALS: Ht 162.6 cm; Wt 75.9 kg
[~2016-12-09 18:38] MED LIST changes: +MAG-OX PO; +NICO21PAT TD; +POLY2.5S OS; +SENO8.6T2 PO
[2016-12-09 19:47] LABS: ALBUMIN 3.3 GM/DL (3.2-5.2); ALBUMIN/GLOBULIN RATIO 0.92 (1.00-1.93); ALKALINE PHOSPHATASE 79 U/L (45-117); ALT/SGPT 24 U/L (12-78); ANION GAP 10 MEQ/L (8-16); AST/SGOT 20 U/L (15-37); BILIRUBIN,DIRECT < 0.1 MG/DL (0.0-0.2); BILIRUBIN,TOTAL 0.2 MG/DL (0.2-1.0); BLOOD UREA NITROGEN 3 MG/DL (7-18); CALCIUM LEVEL 8.8 MG/DL (8.5-10.1); CARBON DIOXIDE LEVEL 26 MEQ/L (21-32); CHLORIDE LEVEL 102 MEQ/L (98-107); CREATININE FOR GFR 1.08 MG/DL (0.70-1.30); GLOMERULAR FILTRATION RATE > 60.0 (>60); GLUCOSE, FASTING 105 MG/DL (70-105); POTASSIUM SERUM 3.6 MEQ/L (3.5-5.1); SODIUM LEVEL 138 MEQ/L (136-145); TOTAL PROTEIN 6.9 GM/DL (6.4-8.2)
[2016-12-09 19:55] LABS: MEAN CORPUSCULAR HEMOGLOBIN 32.2 pg (27.0-33.0); MEAN CORPUSCULAR HGB CONC 33.7 g/dl (32.0-36.5); MEAN CORPUSCULAR VOLUME 95.5 fl (80.0-96.0); RED CELL DISTRIBUTION WIDTH 13.4 % (11.5-14.5); WHITE BLOOD COUNT 3.6 K/mm3 (4.0-10.0)
[2016-12-09] MEDS ORDERED: PHENobarbital INJ 65 MG/ML VIAL (J2560) As Ordered ONE (20:23)
[2016-12-09 20:25] LABS: AMPHETAMINES LEVEL URINE NEGATIVE (NEGATIVE); BENZODIAZEPINES URINE NEGATIVE (NEGATIVE); COCAINE METABOLITE URINE NEGATIVE (NEGATIVE); CONTROL LINE INT CTR LINE PRESENT; METHADONE URINE NEGATIVE (NEGATIVE); OPIATES URINE POSITIVE (NEGATIVE); TRICYCLIC ANTIDEPRESS URINE NEGATIVE (NEGATIVE)
--- NOTE | 2016-12-09 22:03 | ECGEPIP ---
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
[2016-12-09] MEDS ORDERED: LORazepam 2 MG/ML VIAL (J2060) As Ordered ONE (22:59)
[2016-12-09] MEDS ORDERED: LORazepam 2 MG/ML VIAL (J2060) IV PRN (23:00)
--- NOTE | 2016-12-09 23:21 | HPEPDOC ---
Medical History and Physical Date of Admission Dec 09, 2016 at 22:25 History and Physical PRIMARY CARE PROVIDER: Dr. Oswald CHIEF COMPLAINT: Altered mental status HISTORY OF PRESENT ILLNESS: Patient is a 51-year-old male who presents to emergency department via EMS with altered mental status. Patient was nonverbal on examination and not able to provide any history. History was obtained from emergency department. ED reports that EMS found undisclosed pill bottles by him and Suboxone. Patient had a negative head CT in emergency department and was given phenobarbital for agitation. PATIENT NONVERBAL, PAST MEDICAL HISTORY OBTAINED FROM PREVIOUS HOSPITAL RECORDS ALLERGIES: Ketorolac, tramadol PAST MEDICAL HISTORY: COPD, depression, substance abuse, chronic back pain, chronic neck pain, umbilical hernia, insomnia, history of MRSA, allergic rhinitis PAST SURGICAL HISTORY: Spinal fusion, carpal tunnel release, kidney surgery as a child, right ear surgery SOCIAL HISTORY: Patient smokes 1-1/2 packs per day. No alcohol or recreational drug use CODE STATUS: Full code REVIEW OF SYSTEMS: UNOBTAINABLE PHYSICAL EXAMINATION: Vitals: Temperature 98.6, respiratory rate 17, pulse 97, blood pressure 126/71, pulse ox 99% on room air General: Patient awake in stretcher, nonverbal and not able to answer questions. He does not appear to be in any acute distress. Patient with intermittent episodes of thrashing about in stretcher HEENT: Head: normocephalic, atraumatic. Eyes: Pupils dilated, equally round and reactive to light. Respiratory: clear to auscultation bilaterally with no wheezes, rales, or rhonchi. Cardiovascular: regular rate and rhythm, with no murmurs, rubs or gallops. Abdomen: soft, nondistended, no hepatosplenomegaly appreciated. Bowel sounds present. Vascular: pulses palpable and symmetrical in upper and lower extremities bilaterally LABORATORY DATA: CBC: White blood cells 3.6, H&H 13.4/39.8, platelets 315 Chemistry: Sodium 138, potassium 3.6, chloride 102, current oxide 26, BUN 3, creatinine 1.08, glucose 105, calcium 8.8 Liver profile: AST 20, ALT 24, alkaline phosphatase 79, total protein 6.9, albumin 3.3, total bilirubin 0.2 TSH 0.882 Toxicology: Positive for opiates, cannabinoids. Negative for all of the following: Salicylates, methadone, acetaminophen, barbiturates, tricyclic antidepressants, amphetamines, benzodiazepines, cocaine, alcohol ELECTROCARDIOGRAM: Sinus rhythm at rate of 93 bpm RADIOLOGY: Head CT: No acute intracranial pathology or trauma/injury ASSESSMENT: Patient is a 51-year-old male who presented to the emergency department with altered mental status, status post possible overdose. Patient will require admission for further evaluation and monitoring. PLAN: #1: Altered mental status: Patient will be admitted to PCU under care of Dr. Campo. We will check daily CBC, BMP. Orders for labs at 2 AM: BMP, PTT, PT/INR. Order placed for seizure precautions. Order placed for Ativan 2 mg IV every 2 hours when necessary for agitation. #2: Possible overdose: Patient nonverbal at this time, not able to provide any information about what he may or may not have taken. We will continue to monitor labs as above. Further information may be obtained from patient when he is willing to offer information. My preceptor for this patient encounter was physically present in the building during the encounter and was fully available. As needed, all aspects of the patient interview, examination, medical decision making process, and medical care plan development were reviewed and approved by the preceptor. Preceptor is aware and concurs with the plan as stated in the body of this note and will attest to such by his/her cosignature. Attending Note: I have independently examined this patient and all aspects of the exam and treatment decisions have been discussed with the resident. A member of the hospitalist staff will continue to follow this patient through discharge. Additionally, this patient appears to have metabolic encephalopathy. He does demonstrate some degree of agitation when examined. Will continue supportive therapy. There did not appear to be any sign of seizure but he does have signs and symptoms that may be consistent with withdraw. Will plan to monitor in PCU on telemetry. Vital Signs Temperature 98.6, respiratory rate 17, pulse 97, blood pressure 126/71, pulse ox 99% on room air Home Medications Scheduled (Flonase Allergy Relief) 50 Mcg/Act Spr 2 SPRAYS NA DAILY Buprenorphine/Naloxone (Suboxone 8-2 mg) 1 Mis Mis 1 MIS SL BID Gabapentin (Gabapentin) 800 Mg Tab 800 MG PO BID Quetiapine Fumarate (Seroquel) 300 Mg Tab 300 MG PO QHS Salmeterol/Fluticasone (Advair Diskus 250-50 Mcg/Dose) 14 Puff/Inhaler Aerp 1 PUFF INH BID Scheduled PRN Albuterol Sulfate (Ventolin Hfa) 200 Puff/8 Gm Aers 2 PUFF INH Q4H PRN PRN SHORTNESS OF BREATH Allergies Coded Allergies: Ketorolac Tromethamine (Verified Allergy, Intermediate, HIVES, 12/08/14) PATIENT STATES HE TOLERATES IBUPROFEN-RN HAS DOCUMENTED NO PROBLEM Tramadol (Verified Allergy, Intermediate, HIVES, 04/07/13) NAVID ULLOA DO Dec 09, 2016 23:21 NISH VANG DO Dec 10, 2016 18:49
[2016-12-10] VITALS (29 sets, daily range): BP systolic 85–140; BP diastolic 50–94; O2SAT 99
--- NOTE | 2016-12-10 00:44 | EDDOCDS ---
Nurse's Notes [facility] Name: Gagandeep Clarke Age: 51 yrs Sex: Male : 1965 Arrival Date: 12/09/2016 Time: 18:38 Bed 3 Private MD: Diagnosis: Poisoning by selective serotonin and norepinephrine reuptake inhibitors, accidental (unintentional) Presentation: 12/09 18:55 Presenting complaint: per EMS, they were called for seizure, patient found lethargic, ml6 with suboxone and assorted pills, patient refusing to talk to anyone. Adult Sepsis Screening: The patient does not have new or worsening altered mentation. Patient's respiratory rate is less than 22. Systolic blood pressure is greater than 100. Patient has a qSOFA score of 0- Negative Sepsis Screen. Suicide/Homicide risk assessment- the patient denies having any suicidal and/or homicidal ideations and does not present with any other emotional, behavioral or mental health complaints. 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 Transition of care: patient was not received from another setting of care. 18:55 Acuity: TIMUR Level 2 ml6 18:55 Method Of Arrival: Ambulance ml6 Triage Assessment: 19:02 General: Appears unkempt, Behavior is anxious, cooperative. Pain: Denies pain. HIV ml6 screening NA for this visit Offered previously. Neurological: No deficits noted. Cardiovascular: No deficits noted. Capillary refill < 3 seconds is brisk in bilateral fingers toes. Respiratory: No deficits noted. GI: Abdomen is flat, non- distended. Historical: - Allergies: Toradol (Hives); Tramadol HCl (Hives); - Home Meds: 1. Ambien 10 mg Oral tab (Last dose: Unknown) 2. clonidine HCl 0.2 mg Oral tab 1 tab 2 times per day (Last dose: Unknown) 3. gabapentin 400 mg Oral cap 800 mg twice a day (Last dose: Unknown) 4. Seroquel 300 mg Oral tab 1 tab once daily (Last dose: Unknown) - PMHx: Chronic Back pain; COPD; Depression; Substance Abuse; - PSHx: back surgery; Carpal Tunnel Repair- Bilateral; - Social history: Smoking status: Patient uses tobacco products, heavy tobacco smoker. Patient uses street drugs, No barriers to communication noted, Speaks appropriately for age. - Family history: Not pertinent. - : The pt / caregiver states he / she is not on anticoagulants. Home medication list is obtained from the patient. - Exposure Risk Screening:: None identified. Screenin:06 Screening information is obtained from the patient. Fall risk: At risk due to apparent tm5 chemical impairment. Assistance ADL's: unable to assess. Abuse/DV Screen: The patient / caregiver reports he/she is: pt cannot be assessed for living situation at this time. Unable to Assess. Nutritional screening: Unable to Assess. Advance Directives: Unable to assess Advance Directive status due to pt condition. home support is adequate. Assessment: 18:55 General: see triage assessment. ml6 19:22 General: per crabbing machine operator & other staff members pt was noted to have active seizure tm5 activity, pt lethargic after seizure like activity but pt was not incontinent of urine, pt does follow commands after seizure, pt was placed on Oxygen at 2 L NC after seizure, pt with no know history of seizures per staff members that know him, pt with noted twitching to entire body. Cardiovascular: Rhythm is sinus tachycardia No ectopy. Derm: Skin is pink, warm & dry. 19:22 Neurological: Level of Consciousness is lethargic, Speech pt won't speak to staff tm5 members. Facial symmetry appears normal, Pupils are sluggish, pinpoint. 20:05 General: pt with another active seizure lasting about 2 minutes, MD \T\ bedside & tm5 witnessed seizure, small amounts of clear secretions suctioned from mouth, pt placed on 100% NRB during seizure, blood noted in mouth as well, appears to have bitten tongue or lip. 20:56 General: pt's medication sent to pharmacy via senior underwriter, per policy, paperwork in chart. [facility] 21:18 General: pt is with active seizure lasting about 1 minute, aware & no new orders at tm5 this time, small amounts of clear secretions suctioned from mouth, seizure does stop on it's own, pt is not incontinent of urine with seizure, seizure precautions remain in place . 21:51 Reassessment: Patient appears in no apparent distress at this time. Patient states tm5 symptoms have improved. pt resting with eyes closed, no seizure activity . Cardiovascular: Rhythm is sinus rhythm No ectopy. 22:34 Reassessment: Patient appears in no apparent distress at this time. Patient states tm5 symptoms have improved. no seizure like activity noted at this time, NSR on monitor, pt resting with eyes closed at this time . Cardiovascular: Rhythm is sinus rhythm No ectopy. 23:12 General: pt incontinent of large amounts of urine at this time, complete bed change tm5 done, pt awakened with confusion & uncooperative with care, warm blankets applied, seizure precautions remain in place . 23:18 General: SBAR faxed & tubed to PCU at this time . tm5 12/10 00:34 General: PCU ready for pt's admission to the floor . tm5 Vital Signs: 12/09 18:54 BP 132 / 87; Pulse 83; Resp 17; Temp 98.6(T); Pulse Ox 96% on R/A; lr2 19:00 BP 129 / 85 (auto/); tm5 19:01 Pulse 96 MON; Pulse Ox 95% ; tm5 20:06 BP 163 / 79 (auto/); tm5 20:08 Pulse 124 MON; tm5 20:18 BP 165 / 64 (auto/); tm5 20:19 Pulse 100 MON; Pulse Ox 100% on 100% Non-rebreather mask; tm5 20:30 BP 118 / 70 (auto/); tm5 20:31 Pulse 96 MON; Pulse Ox 98% ; tm5 20:42 BP 122 / 73 (auto/); tm5 20:43 Pulse Ox 99% ; tm5 21:12 BP 126 / 71 (auto/); tm5 21:13 Pulse Ox 99% ; tm5 21:14 Pulse 97 MON; Pulse Ox 99% ; tm5 21:42 BP 115 / 73 (auto/); tm5 21:43 Pulse 90 MON; Resp 16 S; Pulse Ox 94% on R/A; tm5 22:12 BP 123 / 68 (auto/); tm5 22:13 Pulse 94 MON; tm5 22:42 BP 108 / 74 (auto/); tm5 22:43 Pulse 86 MON; Resp 20 S; Pulse Ox 96% on R/A; Pain 0/10; tm5 23:12 BP 122 / 72 (auto/); tm5 23:12 Pulse 95 MON; Resp 20 S; Temp 98.4(A); Pulse Ox 93% on R/A; Pain 0/10; tm5 23:42 BP 114 / 60 (auto/); tm5 23:43 Pulse 96 MON; Pulse Ox 92% ; tm5 0216 00:12 BP 114 / 68 (auto/); tm5 00:13 Pulse 94 MON; Resp 16 S; Pulse Ox 96% on R/A; Pain 0/10; tm5 Vitals: 12/09 21:21 Log In Time N/A - ambulance arrival. tm5 ED Course: 18:39 Patient visited by Tamia Barr, Site Manager. lbd 18:39 Ayanna Moraes,BRUCE is Primary Nurse. lbd 18:39 Patient moved to Waiting lbd 18:39 Patient moved to 9 lbd 18:39 The patient / caregiver is instructed regarding the plan of care and ED course. Seizure tm5 precautions initiated. 18:46 Patient moved to 3 [facility] 18:49 Savi Stoll DO is Attending Physician. cs11 18:49 Patient visited by Savi Stoll DO. cs11 18:59 Patient visited by Vicki Brand RN. tm5 18:59 Report received from Froylan BARRERA, assumed care of pt at this time. tm5 19:00 Triage Initiated ml6 19:02 Inserted peripheral IV: 18gauge IV in right antecubital area and blood collected. ml6 Patient tolerated the procedure well. Labs drawn. (by ED staff). 19:22 Primary Nurse role handed off by Ayanna Moraes,BRUCE kb5 19:22 Patient visited by Vicki Brand RN. tm5 19:22 [facility] Payment Agreement was scanned into [employer] and attached to record. gb 19:[address] tm5 19:53 Patient visited by Vicki Brand RN. tm5 19:53 Straight cath inserted 16 Fr. Specimen obtained. returned clear yellow urine. Patient tm5 tolerated poorly pt was held down by multiple staff members because he was uncooperative with care, pt appears to be confused as well, pt was asked several times to use the urinal but would not speak to staff members so ordered straight cath to be done. 20:00 Discontinued lock intact, bleeding controlled, pressure dressing applied, No tm5 redness/swelling at site. pt pulled out his IV. 20:21 Inserted saline lock: 20 gauge in right forearm The patient tolerated the procedure tm5 well. IV restarted at this time. 20:27 Patient visited by Vicki Brand RN. tm5 21:18 Patient visited by Vicki Brand RN. tm5 21:51 Patient visited by Vicki Brand RN. tm5 22:16 Dustin Quinonez DO is Hospitalizing Provider. cs11 22:34 Patient visited by Vicki Brand RN. tm5 22:35 EKG-ADULT Returned. EDMS 23:12 Patient visited by Vicki Brand RN. tm5 23:18 Patient visited by Vicki Brand RN. tm5 23:44 Report given to Cristina BARRERA, unable to take pt to the floor at this time care RN isn't tm5 ready. 12/10 00:13 No procedures done that require assistance. tm5 00:34 Patient visited by Vicki Brand RN. tm5 Administered Medications: 12/09 20:24 Not Given (..): PHENobarbital 60 mg IVP once cs11 20:26 Drug: NS 0.9% 1000 ml [sodium chloride 0.9 % intravenous solution] Route: IV; Rate: tm5 bolus; Site: right forearm; 21:30 Follow up: IV Status: Completed infusion; IV Intake: 1000ml tm5 20:26 Drug: PHENobarbital 65 mg [phenobarbital sodium 65 mg/mL injection solution (1 mL)] tm5 Route: IVP; Site: right forearm; 22:58 Follow up: Response: No Adverse Reaction tm5 23:02 Drug: LORazepam 1 mg [lorazepam 2 mg/mL injection solution (0.5 mL)] Route: IVP; Site: 5 right forearm; Intake: 21:30 IV: 1000.00ml; Total: 1000.00ml. tm5 Order Results: Lab Order: Acetaminophen Level; SPEC'M 12/09/16 18:55 Test: ACETAMINOPHEN LEVEL; Value: 4.2; Range: 10.0-30.0; Abnormal: Below low normal; Units: UG/ML; Status: F Lab Order: Basic Metabolic Profile; SPEC'M 12/09/16 18:55 Test: GLUCOSE, FASTING; Value: 105; Range: 70-105; Units: MG/DL; Status: F Test: BLOOD UREA NITROGEN; Value: 3; Range: 7-18; Abnormal: Below low normal; Units: MG/DL; Status: F Test: CREATININE FOR GFR; Value: 1.08; Range: 0.70-1.30; Units: MG/DL; Status: F Test: GLOMERULAR FILTRATION RATE; Value: > 60.0; Range: >60; Status: F Test: SODIUM LEVEL; Value: 138; Range: 136-145; Units: MEQ/L; Status: F Test: POTASSIUM SERUM; Value: 3.6; Range: 3.5-5.1; Units: MEQ/L; Status: F Test: CHLORIDE LEVEL; Value: 102; Range: 98-107; Units: MEQ/L; Status: F Test: CARBON DIOXIDE LEVEL; Value: 26; Range: 21-32; Units: MEQ/L; Status: F Test: ANION GAP; Value: 10; Range: 8-16; Units: MEQ/L; Status: F Test: CALCIUM LEVEL; Value: 8.8; Range: 8.5-10.1; Units: MG/DL; Status: F Test Note: ; Units are mL/min/1.73 m2 Chronic Kidney Disease Staging per NKF: Stage I & II GFR >=60 Normal to Mildly Decreased Stage III GFR 30-59 Moderately Decreased Stage IV GFR 15-29 Severely Decreased Stage V GFR <15 Very Little GFR Left ESRD GFR <15 on REEL CUTTER Lab Order: Complete Blood Count; [facility] 12/09/16 18:55 Test: WHITE BLOOD COUNT; Value: 3.6; Range: 4.0-10.0; Abnormal: Below low normal; Units: K/mm3; Status: F Test: RED BLOOD COUNT; Value: 4.17; Range: 4.30-6.10; Abnormal: Below low normal; Units: M/mm3; Status: F Test: HEMOGLOBIN; Value: 13.4; Range: 14.0-18.0; Abnormal: Below low normal; Units: g/dl; Status: F Test: HEMATOCRIT; Value: 39.8; Range: 42.0-52.0; Abnormal: Below low normal; Units: %; Status: F Test: MEAN CORPUSCULAR VOLUME; Value: 95.5; Range: 80.0-96.0; Units: fl; Status: F Test: MEAN CORPUSCULAR HEMOGLOBIN; Value: 32.2; Range: 27.0-33.0; Units: pg; Status: F Test: MEAN CORPUSCULAR HGB CONC; Value: 33.7; Range: 32.0-36.5; Units: g/dl; Status: F Test: RED CELL DISTRIBUTION WIDTH; Value: 13.4; Range: 11.5-14.5; Units: %; Status: F Test: PLATELET COUNT, AUTOMATED; Value: 315; Range: 150-450; Units: k/mm3; Status: F Lab Order: Drug Eval Toxicology ED Only; SPEC'M 12/09/16 19:50 Test: AMPHETAMINES LEVEL URINE; Value: NEGATIVE; Range: NEGATIVE; Status: F Test: BARBITURATES URINE; Value: NEGATIVE; Range: NEGATIVE; Status: F Test: BENZODIAZEPINES URINE; Value: NEGATIVE; Range: NEGATIVE; Status: F Test: CANNABINOIDS URINE; Value: POSITIVE; Range: NEGATIVE; Abnormal: Above high normal; Status: F Test: COCAINE METABOLITE URINE; Value: NEGATIVE; Range: NEGATIVE; Status: F Test: METHADONE URINE; Value: NEGATIVE; Range: NEGATIVE; Status: F Test: OPIATES URINE; Value: POSITIVE; Range: NEGATIVE; Abnormal: Above high normal; Status: F Test: TRICYCLIC ANTIDEPRESS URINE; Value: NEGATIVE; Range: NEGATIVE; Status: F Test Note: ; FALSE POSITIVE RESULTS CAN BE CAUSED BY THE USE OF PANTOPRAZOLE (PROTONIX). Lab Order: Ethyl Alcohol (ethanol); SPEC'M 12/09/16 18:55 Test: ETHYL ALCOHOL (ETHANOL); Value: < 0.003; Range: 0.000-0.010; Units: %; Status: F Lab Order: Liver Profile; SPEC'M 12/09/16 18:55 Test: AST/SGOT; Value: 20; Range: 15-37; Units: U/L; Status: F Test: ALT/SGPT; Value: 24; Range: 12-78; Units: U/L; Status: F Test: ALKALINE PHOSPHATASE; Value: 79; Range: 45-117; Units: U/L; Status: F Test: BILIRUBIN,TOTAL; Value: 0.2; Range: 0.2-1.0; Units: MG/DL; Status: F Test: BILIRUBIN,DIRECT; Value: < 0.1; Range: 0.0-0.2; Units: MG/DL; Status: F Test: TOTAL PROTEIN; Value: 6.9; Range: 6.4-8.2; Units: GM/DL; Status: F Test: ALBUMIN; Value: 3.3; Range: 3.2-5.2; Units: GM/DL; Status: F Test: ALBUMIN/GLOBULIN RATIO; Value: 0.92; Range: 1.00-1.93; Abnormal: Below low normal; Status: F Lab Order: Salicylate Level; SPEC'M 12/09/16 18:55 Test: SALICYLATE LEVEL; Value: 1.9; Range: 5.0-30.0; Abnormal: Below low normal; Units: MG/DL; Status: F Lab Order: Thyroid Stimulating Hormone; SPEC'M 12/09/16 18:55 Test: THYROID STIMULATING HORMONE; Value: 0.882; Range: 0.358-3.740; Units: uIU/ML; Status: F Lab Order: CREATINE PHOSPHOKINASE; SPEC'M 12/09/16 18:55 Test: CPK CREATINE PHOSPHOKINASE; Value: 126; Range: 39-308; Units: U/L; Status: F Radiology Order: EKG-ADULT Test: EKG-ADULT REASON FOR EXAMINATION: drug ingestion; Stationary ECG Study; [facility] - ED; ; Test Date: 2016-12-09; Pat Name: GAGANDEEP CLARKE Department:; Room: -; Gender: M Technical Services Specialist: lr; : 1965 Requested By: SAVI STOLL; Order Number: [id number] Reading MD: Jan Campuzano; Measurements; Intervals [place]; Rate: 93 P: 91; DE: 145 QRS: 58; QRSD: 106 T: 51; QT: 366; QTc: 457; Interpretive Statements; SINUS RHYTHM WITH OCCASIONAL PAC; ; Electronically Signed On 12-09-2016 22:03:20 EST by Jan Campuzano; Outcome: 18:39 CT Study completed. 5 21:21 Discharge Assessment: patient administered narcotics - no. tm5 22:17 Decision to Hospitalize by Provider. cs11 12/10 00:13 The following High Risk Discharge criteria are identified: None. Admitted to PCU tm5 accompanied by nurse, accompanied by tech, via stretcher, on monitor, with chart. Condition: good Condition: stable Condition: improved. Property :Personal belongings accompany Pt. 00:42 Patient left the ED. tm5 Signatures: Dispatcher [employer] EDMS BarrTamia simmons, Site Manager Unit lbd Patti Archibald, RN RN mcp Dalia Brambila, Reg Reg gb CumberlandWilliam, GEOTHERMAL INSTALLER GEOTHERMAL INSTALLER kb5 Freddie Carcamo, RN RN ml6 Esperanza Gonzales RN RN sls1 Savi Sotll, DO DO cs11 Vicki Brand RN RN tm5 Micaela Young lr2 Corrections: (The following items were deleted from the chart) 12/09 20:21 20:19 General: pt with another active seizure lasting about 2 minutes, MD \T\ bedside & tm5 witnessed seizure, small amounts of clear secretions suctioned from mouth, pt placed on 100% NRB during seizure, blood noted in mouth as well, appears to have bitten tongue or lip. tm5 20:32 19:58 CREATINE PHOSPHOKINASE+LAB sent. tm5 EDMS MTDD
--- NOTE | 2016-12-10 00:44 | EDDOCDS ---
Physician Documentation [facility] Name: Gavin Marvin Age: 51 yrs Sex: Male : 1965 Arrival Date: 12/09/2016 Time: 18:38 Bed 3 Private MD: Disposition: 12/09 22:18 Critical Care:. cs11 Disposition: 12/09/16 22:17 Hospitalization ordered by Dustin Quinonez for Inpatient Admission. Preliminary diagnosis is Poisoning by selective serotonin and norepinephrine reuptake inhibitors, accidental (unintentional). - Bed requested for PCU. - Status is Inpatient Admission. tm5 - Condition is Stable. - Problem is new. - Symptoms have improved. Historical: - Allergies: Toradol (Hives); Tramadol HCl (Hives); - Home Meds: 1. Ambien 10 mg Oral tab (Last dose: Unknown) 2. clonidine HCl 0.2 mg Oral tab 1 tab 2 times per day (Last dose: Unknown) 3. gabapentin 400 mg Oral cap 800 mg twice a day (Last dose: Unknown) 4. Seroquel 300 mg Oral tab 1 tab once daily (Last dose: Unknown) - PMHx: Chronic Back pain; COPD; Depression; Substance Abuse; - PSHx: back surgery; Carpal Tunnel Repair- Bilateral; - Social history: Smoking status: Patient uses tobacco products, heavy tobacco smoker. Patient uses street drugs, No barriers to communication noted, Speaks appropriately for age. - Family history: Not pertinent. - : The pt / caregiver states he / she is not on anticoagulants. Home medication list is obtained from the patient. - Exposure Risk Screening:: None identified. Vital Signs: 18:54 BP 132 / 87; Pulse 83; Resp 17; Temp 98.6(T); Pulse Ox 96% on R/A; lr2 19:00 BP 129 / 85 (auto/); tm5 19:01 Pulse 96 MON; Pulse Ox 95% ; tm5 20:06 BP 163 / 79 (auto/); tm5 20:08 Pulse 124 MON; tm5 20:18 BP 165 / 64 (auto/); tm5 20:19 Pulse 100 MON; Pulse Ox 100% on 100% Non-rebreather mask; tm5 20:30 BP 118 / 70 (auto/); tm5 20:31 Pulse 96 MON; Pulse Ox 98% ; tm5 20:42 BP 122 / 73 (auto/); tm5 20:43 Pulse Ox 99% ; tm5 21:12 BP 126 / 71 (auto/); tm5 21:13 Pulse Ox 99% ; tm5 21:14 Pulse 97 MON; Pulse Ox 99% ; tm5 21:42 BP 115 / 73 (auto/); tm5 21:43 Pulse 90 MON; Resp 16 S; Pulse Ox 94% on R/A; tm5 22:12 BP 123 / 68 (auto/); tm5 22:13 Pulse 94 MON; tm5 22:42 BP 108 / 74 (auto/); tm5 22:43 Pulse 86 MON; Resp 20 S; Pulse Ox 96% on R/A; Pain 0/10; tm5 23:12 BP 122 / 72 (auto/); tm5 23:12 Pulse 95 MON; Resp 20 S; Temp 98.4(A); Pulse Ox 93% on R/A; Pain 0/10; tm5 23:42 BP 114 / 60 (auto/); tm5 23:43 Pulse 96 MON; Pulse Ox 92% ; tm5 12/10 00:12 BP 114 / 68 (auto/); tm5 00:13 Pulse 94 MON; Resp 16 S; Pulse Ox 96% on R/A; Pain 0/10; tm5 MDM: 12/09 19:15 Consult PFS/PSA/Television Mechanic ordered. cs11 19:15 Consult PFS/PSA/Television Mechanic: Patient's case requires discussion with on-call cs11 Psychiatrist ordered. 19:15 PSA/PFS to call Nursing Gauntlet Pairer, to enter patient data on [place] Safe Act if patient cs11 involuntarily admitted or transferred for SI or HI ordered. 19:15 Confirm accurate psychiatric medication list and times of last dosage ordered. cs11 19:15 Detain Pt Until Medically/PFS Cleared ordered. cs11 19:16 Acetaminophen Level Ordered. EDMS 19:16 Basic Metabolic Profile Ordered. EDMS 19:16 Complete Blood Count Ordered. EDMS 19:16 Drug Eval Toxicology ED Only Ordered. EDMS 19:16 Ethyl Alcohol (ethanol) Ordered. EDMS 19:16 Liver Profile Ordered. EDMS 19:16 Salicylate Level Ordered. EDMS 19:16 Thyroid Stimulating Hormone Ordered. EDMS 19:17 ECG WITH READING ER PHYS+CARDIAG ordered. EDMS 19:20 Financial registration complete. gb 19:21 CT Head Without Contrast Ordered. EDMS 19:22 [facility] Payment Agreement was scanned into [employer] and attached to record. gb 19:57 Straight cath ordered. tm5 20:14 Acetaminophen Level Reviewed. cs11 20:14 Basic Metabolic Profile Reviewed. cs11 20:14 Complete Blood Count Reviewed. cs11 20:14 Liver Profile Reviewed. cs11 20:14 Salicylate Level Reviewed. cs11 20:14 Ethyl Alcohol (ethanol) Reviewed. cs11 20:14 Thyroid Stimulating Hormone Reviewed. cs11 20:18 NS 0.9% 1000 ml IV at bolus once ordered. cs11 20:18 PHENobarbital 60 mg IVP once ordered. cs11 20:24 PHENobarbital 65 mg IVP once ordered. cs11 20:33 CREATINE PHOSPHOKINASE Ordered. EDMS 20:36 Acetaminophen Level Reviewed. cs11 20:36 Basic Metabolic Profile Reviewed. cs11 20:36 Drug Eval Toxicology ED Only Reviewed. cs11 20:36 Liver Profile Reviewed. cs11 20:36 Salicylate Level Reviewed. cs11 20:36 Ethyl Alcohol (ethanol) Reviewed. cs11 20:36 Thyroid Stimulating Hormone Reviewed. cs11 20:36 CREATINE PHOSPHOKINASE Reviewed. cs11 22:12 BED REQUEST+ADM ordered. EDMS 22:28 Admission / Observation Status ordered. EDMS 22:57 LORazepam 1 mg IVP once ordered. cs11 22:59 Consult PFS/PSA/Television Mechanic complete. cl 23:00 Consult PFS/PSA/Television Mechanic: Patient's case requires discussion with on-call cl Psychiatrist complete. 23:00 PSA/PFS to call Nursing Gauntlet Pairer, to [place] patient data [place] Safe [place] if patient cl involuntarily admitted or transferred for SI or HI complete. 23:05 BASIC METABOLIC PROFILE Ordered. EDMS 23:05 COMPLETE BLOOD COUNT Ordered. EDMS 23:05 BASIC METABOLIC PROFILE Ordered. EDMS 23:06 PARTIAL THROMBOPLASTIN TIME Ordered. EDMS 23:07 REGULAR DIET ordered. EDMS 23:13 PROTHROMBIN TIME PROFILE\E\INR Ordered. EDMS 23:35 PHYSICAL THERAPY EVAL & TREAT ordered. EDMS Administered Medications: 20:24 Not Given (..): PHENobarbital 60 mg IVP once cs11 20:26 Drug: NS 0.9% 1000 ml [sodium chloride 0.9 % intravenous solution] Route: IV; Rate: tm5 bolus; Site: right forearm; 21:30 Follow up: IV Status: Completed infusion; IV Intake: 1000ml tm5 20:26 Drug: PHENobarbital 65 mg [phenobarbital sodium 65 mg/mL injection solution (1 mL)] tm5 Route: IVP; Site: right forearm; 22:58 Follow up: Response: No Adverse Reaction tm5 23:02 Drug: LORazepam 1 mg [lorazepam 2 mg/mL injection solution (0.5 mL)] Route: IVP; Site: tm5 right forearm; Critical Care Time: 22:18 Critical care time: Bedside Care: 120 minutes. Total time: 120 minutes cs11 Signatures: Dispatcher [employer] EDMS Sharlene Alejo, RN RN daq Ben Haynes, PSA PSA cl Dalia Brambila, Reg Reg Freddie Grady, RN RN ml6 Ja Martinez DO DO cs11 Vicki Brand,RN RN tm5 The chart was reviewed and I authenticate all verbal orders and agree with the evaluation and treatment provided.Corrections: (The following items were deleted from the chart) 20:32 19:36 CREATINE PHOSPHOKINASE+LAB ordered. EDMS EDMS 23:12 23:05 PROTHROMBIN TIME PROFILE\E\INR ordered. EDMS EDMS Attachments: 19:22 [facility] Payment Agreement gb MTDD
[2016-12-10 02:07] LABS: INR 1.06
[2016-12-10 02:22] LABS: ANION GAP 6 MEQ/L (8-16); BLOOD UREA NITROGEN 3 MG/DL (7-18); CALCIUM LEVEL 8.3 MG/DL (8.5-10.1); CARBON DIOXIDE LEVEL 27 MEQ/L (21-32); CHLORIDE LEVEL 106 MEQ/L (98-107); GLOMERULAR FILTRATION RATE > 60.0 (>60); GLUCOSE, FASTING 101 MG/DL (70-105); SODIUM LEVEL 139 MEQ/L (136-145)
[2016-12-10] MEDS: ONDANSETRON 4MG/2ML VIAL (J2405) IV PRN (05:07)
[2016-12-10 06:56] LABS: MEAN CORPUSCULAR HEMOGLOBIN 32.4 pg (27.0-33.0); MEAN CORPUSCULAR HGB CONC 34.1 g/dl (32.0-36.5); RED CELL DISTRIBUTION WIDTH 13.4 % (11.5-14.5); WHITE BLOOD COUNT 8.3 K/mm3 (4.0-10.0)
[2016-12-10 07:24] LABS: ANION GAP 8 MEQ/L (8-16); BLOOD UREA NITROGEN 4 MG/DL (7-18); CALCIUM LEVEL 8.7 MG/DL (8.5-10.1); CARBON DIOXIDE LEVEL 27 MEQ/L (21-32); CHLORIDE LEVEL 106 MEQ/L (98-107); CREATININE FOR GFR 0.99 MG/DL (0.70-1.30); GLOMERULAR FILTRATION RATE > 60.0 (>60); GLUCOSE, FASTING 93 MG/DL (70-105); SODIUM LEVEL 141 MEQ/L (136-145)
[2016-12-10] MEDS ORDERED: SUCCINYLCHOLINE INJ 200 MG/10 ML VIAL (J0330) As Ordered ONE (07:46)
[2016-12-10] MEDS ORDERED: PROPOFOL 1,000 MG/100 ML VIAL As Ordered ONE (07:46)
[2016-12-10] MEDS ORDERED: SUCCINYLCHOLINE INJ 200 MG/10 ML VIAL (J0330) IV STA (07:58)
[2016-12-10] MEDS ORDERED: LORazepam 2 MG/ML VIAL (J2060) IV STA ×3 (08:06)
[2016-12-10] MEDS ORDERED: IPRATROPIUM 0.5MG/ALBUTEROL 2.5MG INH SOL UD 3ML (DUONEB)(J7620) NEB PRN (08:15)
[2016-12-10] MEDS ORDERED: PROPOFOL 200 MG/20 ML VIAL IV ONE (08:15)
--- NOTE | 2016-12-10 08:37 | REP ---
Clinical: Endotracheal tube placement. Comparison: 11/27/2016 . Findings: The mediastinum and cardiac silhouette are stable and within normal limits for portable technique. Endotracheal tube approximately 2.5 cm above the zi. Nasogastric tube courses below the left hemidiaphragm. The lung mcclain are clear without acute consolidation, effusion, or pneumothorax. Skeletal structures are intact. Impression: Endotracheal tube and nasogastric tube in satisfactory position. No focal consolidation appreciated. Signed by Jean Donovan MD 12/10/2016 08:28 A
--- NOTE | 2016-12-10 08:49 | IPNPDOC ---
Text Note Date of Service The patient was seen on 12/10/16. NOTE CLAIMS ATTORNEY Note CLAIMS ATTORNEY called at 7:17 am for seizure, RN observed tonic clonic movement. When examined, patient combative, with mouth clumped and oral airway with no gag reflex, sat 95% and HR 107, bp 140/90, given 2mg IVP ativan x3, with no improvement. given patient unable to protect his airway, elected to intubate the patient. Patient intubated in ICU, (please refer to intubation note for more Detail) , placed on propofol drip and reddy, OGT placed. CXR, abg followup VS,Fishbone, I+O VS, Fishbone, I+O Laboratory Tests 12/09/16 18:55 Red Blood Count 4.17 L, Mean Corpuscular Volume 95.5, Mean Corpuscular Hemoglobin 32.2, Mean Corpuscular Hemoglobin Concent 33.7, Red Cell Distribution Width 13.4 12/10/16 01:47 Calcium Level 8.3 L 12/10/16 06:49 Red Blood Count 4.11 L, Mean Corpuscular Volume 95.0, Mean Corpuscular Hemoglobin 32.4, Mean Corpuscular Hemoglobin Concent 34.1, Red Cell Distribution Width 13.4, Calcium Level 8.7 Vital Signs Date Time Temp Pulse Resp B/P Pulse Ox O2 Delivery O2 Flow Rate FiO2 12/10/16 07:36 105 24 128/76 96 Room Air 12/10/16 07:25 100 12/10/16 04:00 96.6 REN CAMARGO MD Dec 10, 2016 08:49
--- NOTE | 2016-12-10 08:54 | REP ---
Clinical: Trauma . Comparison: 08/15/2015, 11/26/2016 . Findings: The ventricles, sulci, and cisterns are normal in position and appearance. Delatorre-white differentiation is maintained. No acute intracranial hemorrhage, mass/mass effect, pathology or trauma/injury. No evidence for acute infarction. No extra-axial fluid collection. Calvarium is intact. Paranasal sinuses and mastoid air cells are clear. Impression: Normal noncontrast head CT. No evidence for acute intracranial pathology or trauma/injury. Signed by Jean Donovan MD 12/10/2016 08:45 A
[2016-12-10 08:58] LABS: MEAN CORPUSCULAR HEMOGLOBIN 32.3 pg (27.0-33.0); MEAN CORPUSCULAR HGB CONC 34.6 g/dl (32.0-36.5); MEAN CORPUSCULAR VOLUME 93.4 fl (80.0-96.0); RED CELL DISTRIBUTION WIDTH 13.3 % (11.5-14.5); WHITE BLOOD COUNT 7.1 K/mm3 (4.0-10.0)
[2016-12-10] MEDS ORDERED: MULTIVITAMIN -ADULT INJECTION 10 ML, THIAMINE INJection 100 MG, FOLIC ACID 1 MG in NS 1... IV ONE (09:00)
[2016-12-10 09:12] LABS: ABG BASE EXCESS 0.1 (-2.0-2.0); ABG HCO3 24.4 MEQ/L (22.0-26.0); ABG PARTIAL PRESSURE CO2 38.7 mmHg (35.0-45.0); ABG PARTIAL PRESSURE O2 107.5 mmHg (75.0-100.0); ABG STANDARD HCO3 24.6 MEQ/L (22.0-26.0); ABG TOTAL CO2 25.6 MEQ/L (22.0-29.0); ABG pH (ARTERIAL) 7.418 UNITS (7.350-7.450)
[2016-12-10 09:13] LABS: ANION GAP 11 MEQ/L (8-16); BLOOD UREA NITROGEN 4 MG/DL (7-18); CARBON DIOXIDE LEVEL 25 MEQ/L (21-32); CHLORIDE LEVEL 107 MEQ/L (98-107); CREATININE FOR GFR 1.05 MG/DL (0.70-1.30); GLOMERULAR FILTRATION RATE > 60.0 (>60); GLUCOSE, FASTING 87 MG/DL (70-105); MAGNESIUM LEVEL 1.8 MG/DL (1.8-2.4); POTASSIUM SERUM 3.9 MEQ/L (3.5-5.1); SODIUM LEVEL 143 MEQ/L (136-145)
[2016-12-10 09:18] LABS: OSMOLALITY SERUM 289 MOSM/KG (275-295)
[2016-12-10] MEDS: CHLORHEXIDINE GLUCONATE 0.12 % 15ML UDC (PERIDEX ORAL RINSE) MT SCH ×2 (10:57→20:11)
[2016-12-10] MEDS: FAMOTIDINE IV BAG 20 MG in APPROPRIATE DILUENT 1 EA IV SCH ×2 (10:58→20:11)
[2016-12-10] MEDS: PROPOFOL 1,000 MG in APPROPRIATE DILUENT 1 EA IV SCH ×4 (10:58→21:45)
[2016-12-10] MEDS: HEPARIN SOD (PORCINE) 5000 UNITS/ML VIAL SQ SCH ×2 (10:58→20:11)
[2016-12-10] MEDS: LR 1,000 ML IV SCH ×2 (11:30→18:14)
[2016-12-10] MEDS: LORazepam 2 MG/ML VIAL (J2060) IV SCH ×4 (11:31→23:37)
[2016-12-10] MEDS ORDERED: SODIUM CHLORIDE 0.9% 1000 ML IV ONE (15:30)
[2016-12-11] VITALS (13 sets, daily range): BP systolic 90–134; BP diastolic 54–78; O2SAT 94–96
[2016-12-11] MEDS ORDERED: SODIUM CHLORIDE 0.9% 1000 ML IV ONE (01:00)
[2016-12-11] MEDS: LR 1,000 ML IV SCH (04:00)
[2016-12-11] MEDS: PROPOFOL 1,000 MG in APPROPRIATE DILUENT 1 EA IV SCH (04:00)
[2016-12-11] MEDS: LORazepam 2 MG/ML VIAL (J2060) IV SCH ×5 (04:03→20:38)
[2016-12-11 04:29] LABS: MEAN CORPUSCULAR HEMOGLOBIN 32.9 pg (27.0-33.0); MEAN CORPUSCULAR HGB CONC 33.8 g/dl (32.0-36.5); MEAN CORPUSCULAR VOLUME 97.3 fl (80.0-96.0)
[2016-12-11 04:56] LABS: ANION GAP 8 MEQ/L (8-16); BLOOD UREA NITROGEN 8 MG/DL (7-18); CALCIUM LEVEL 7.8 MG/DL (8.5-10.1); CARBON DIOXIDE LEVEL 27 MEQ/L (21-32); CHLORIDE LEVEL 110 MEQ/L (98-107); CREATININE FOR GFR 0.82 MG/DL (0.70-1.30); GLOMERULAR FILTRATION RATE > 60.0 (>60); GLUCOSE, FASTING 70 MG/DL (70-105); MAGNESIUM LEVEL 1.9 MG/DL (1.8-2.4); POTASSIUM SERUM 3.6 MEQ/L (3.5-5.1); SODIUM LEVEL 145 MEQ/L (136-145)
[2016-12-11 05:52] LABS: ABG HCO3 23.6 MEQ/L (22.0-26.0); ABG PARTIAL PRESSURE CO2 38.9 mmHg (35.0-45.0); ABG PARTIAL PRESSURE O2 87.6 mmHg (75.0-100.0); ABG STANDARD HCO3 23.6 MEQ/L (22.0-26.0); ABG TOTAL CO2 24.7 MEQ/L (22.0-29.0)
[2016-12-11] MEDS: POTASSIUM CHLORIDE 10 MEQ SR TABLET PO ONE ×2 (07:45→08:03)
[2016-12-11] MEDS: FAMOTIDINE IV BAG 20 MG in APPROPRIATE DILUENT 1 EA IV SCH ×2 (07:56→20:38)
[2016-12-11] MEDS: HEPARIN SOD (PORCINE) 5000 UNITS/ML VIAL SQ SCH ×2 (07:56→20:39)
[2016-12-11] MEDS ORDERED: POTASSIUM CHLORIDE 10% LIQ 20 MEQ/15 ML UDC GT ONE (08:00)
[2016-12-11] MEDS: FOLIC ACID 1 MG TAB PO SCH (09:00)
[2016-12-11] MEDS: THIAMINE 100 MG TAB PO SCH (09:00)
[2016-12-11] MEDS: FLUTICASONE PROP 0.05% NASAL SPRAY 16 GM (FLONASE) SCH (09:00)
[2016-12-11] MEDS: MULTIVITAMINS/MINERALS THERAP 1 TAB PO SCH (09:00)
--- NOTE | 2016-12-11 09:01 | REP ---
PORTABLE CHEST: Single AP portable view of the chest is performed and compared to prior study of 12/10/2016. There appears to be mild vascular congestion. No pneumothorax or acute infiltrate is seen. The cardiomediastinal silhouette is unchanged. Endotracheal tube is seen with the tip approximately 2 cm above the zi. Nasogastric tube traverses into the stomach. IMPRESSION: Mild vascular congestion. No infiltrate. Signed by Kamari Delatorre MD 12/11/2016 06:29 P
--- NOTE | 2016-12-11 10:31 | RO ---
DATE OF PROCEDURE: 12/10/2016 PREPROCEDURE DIAGNOSIS: Seizure and airway protection. POSTPROCEDURE DIAGNOSIS: Seizure and airway protection. PHYSICIAN PERFORMING PROCEDURE: Dr. Melinda Campo SUPERVISING PHYSICIAN: Dr. Marquez Perkins. FORK TRUCK OPERATOR: Dr. Oswald PROCEDURE PERFORMED: Endotracheal intubation. ANESTHESIA: Sedation and paralytics: Propofol 50 mg once, succinylcholine 100 mg IV push once. ESTIMATED BLOOD LOSS: Minimal. DESCRIPTION OF PROCEDURE: The patient was in the supine position, quite agitated, unable to protect his airway with no gag reflex. Vital signs: Blood pressure 140/70, pulse in the 80s, pulse oximetry is 94% on nasal cannula. Combative. Nonverbal. The patient was given propofol followed by succinylcholine. Supplemental oxygen was given. The patient was bagged. Glidescope was used to visualize the vocal cords. Subsequently, size #8 tube was inserted with the lip line of 24. Balloon tube was inflated. Endotracheal tube was secured. Bilateral respiratory sounds were detected. Orogastric tube was also inserted. X-ray was ordered for confirmation and ET tube was confirmed. CO2 capnometer visualized color change. The patient was saturating 100% following the procedure. Ventilator settings are 16, 400, PEEP 5, 40% FiO2. ABG ordered 30 minutes later. The patient tolerated the procedure with no complications. Sedation, propofol drip, ordered.
[2016-12-11] MEDS: ADVAIR DISKUS 250/50 INH PWD INH SCH ×2 (11:31→19:49)
[2016-12-11] MEDS: POTASSIUM CHLORIDE INJ 40 MEQ in LR 1,000 ML IV SCH ×2 (12:06→20:38)
--- NOTE | 2016-12-11 16:00 | IPN ---
DATE: 12/10/2016 PROGRESS NOTE AND CRITICAL CARE NOTE Patient was seen and examined. RT was called this morning for seizure and combative behavior. Patient was given 2 mg of Ativan intravenous (IV) push times three with no alleviation. Patient has no gag reflex, unable to protect the airway. Subsequently, patient was intubated in the intensive care unit (ICU), placed on propofol drip. Further history not possible. VITAL SIGNS: Temperature 96.3, pulse 73, respirations 16, blood pressure 100/62, pulse oximetry 99% on ventilator 40% Fi02. LABORATORIES: WBC 7.1, hemoglobin and hematocrit 12.4/35.9, platelets 278. Chemistries: Sodium 143, potassium 3.9, chloride 107, bicarbonate 25, BUN 4, creatinine 1.05, magnesium 1.8, ABG 7.42, 38.7, 107.5, 24.4. PHYSICAL EXAMINATION: GENERAL: Patient intubated, sedated, comfortable in no acute distress. HEENT: Normocephalic, atraumatic. Pupils bilateral round, equal, and reactive. RESPIRATORY: Bilateral clear to auscultation. Distant breath sound. No wheeze, rales or rhonchi. CARDIAC: Regular rate and rhythm. Normal S1, S2. ABDOMEN: Soft, nontender, nondistended. Positive bowel sounds. EXTREMITIES: No clubbing, cyanosis, or edema. ASSESSMENT AND PLAN: This is a 51-year-old male patient with underlying medical history of chronic obstructive pulmonary disease (COPD), depression, polysubstance abuse, chronic back pain, history of Methicillin-resistant Staphylococcus (MRSA) of the right knee, chronic back and neck pain, anxiety, umbilical hernia, insomnia, recently discharged from inpatient mental health for substance overdose. Patient admitted with questionable seizure and altered mental status. Emergency medical services (EMS) found undisclosed pills right next to him and Suboxone. PROBLEMS: 1. Altered mental status, encephalopathy, likely secondary to substance overdose. Patient currently intubated. Withdrawal precautions, seizure precautions, on propofol drip with also Ativan. Maintenance fluids. Initially we will do banana bags 1 liter for 120 mL an hour. 2. Gastrointestinal prophylaxis. 3. Deep venous thrombosis (DVT) prophylaxis, Heparin subcu, Peridex, sedation vacation. Will do spontaneous trials tomorrow morning. Ventilator, volume control 16, 400, PEEP of 5, 40 FiO2 Follow up x-rays, followup ABGs. Maintenance fluids after banana bag. Monitor blood pressure. 4. Questionable seizure. Likely withdrawal from medication. Seizure precaution, neurologic checks. Patient is intubated on propofol drip. Will continue to monitor. 5. Possible substance overdose. Patient is currently intubated. Management as above. Once patient is extubated we will consult psychiatry. Patient was just discharged from inpatient mental health. 6. COPD. Continue nebulizer treatments as needed. Patient is intubated. 7. Chronic pain. Patient is currently intubated. Will continue to monitor, supportive care. 8. Depression. Will consult psychiatry once patient is extubated. 9. Deep venous thrombosis (DVT) prophylaxis. Patient on heparin subcu. DISPOSITION: Patient currently nothing by mouth (NPO). Spontaneous trials tomorrow morning for possible extubation. Likely consult psychiatry tomorrow once patient is returning to baseline.
[2016-12-11] MEDS: ONDANSETRON 4MG/2ML VIAL (J2405) IV PRN (21:02)
[2016-12-12 00:21] VITALS: BP 112/65
[2016-12-12] MEDS: LORazepam 2 MG/ML VIAL (J2060) IV SCH (00:39)
--- NOTE | 2016-12-12 01:44 | EDDOCDS ---
Physician Documentation [facility] Name: Gavin Marvin Age: 51 yrs Sex: Male : 1965 Arrival Date: 12/09/2016 Time: 18:38 Bed 3 Private MD: Disposition: 12/09 22:18 Critical Care:. cs11 Disposition: 12/09/16 22:17 Hospitalization ordered by Dustin Quinonez for Inpatient Admission. Preliminary diagnosis is Poisoning by selective serotonin and norepinephrine reuptake inhibitors, accidental (unintentional). - Bed requested for PCU. - Status is Inpatient Admission. tm5 - Condition is Stable. - Problem is new. - Symptoms have improved. Historical: - Allergies: Toradol (Hives); Tramadol HCl (Hives); - Home Meds: 1. Ambien 10 mg Oral tab (Last dose: Unknown) 2. clonidine HCl 0.2 mg Oral tab 1 tab 2 times per day (Last dose: Unknown) 3. gabapentin 400 mg Oral cap 800 mg twice a day (Last dose: Unknown) 4. Seroquel 300 mg Oral tab 1 tab once daily (Last dose: Unknown) - PMHx: Chronic Back pain; COPD; Depression; Substance Abuse; - PSHx: back surgery; Carpal Tunnel Repair- Bilateral; - Social history: Smoking status: Patient uses tobacco products, heavy tobacco smoker. Patient uses street drugs, No barriers to communication noted, Speaks appropriately for age. - Family history: Not pertinent. - : The pt / caregiver states he / she is not on anticoagulants. Home medication list is obtained from the patient. - Exposure Risk Screening:: None identified. Vital Signs: 18:54 BP 132 / 87; Pulse 83; Resp 17; Temp 98.6(T); Pulse Ox 96% on R/A; lr2 19:00 BP 129 / 85 (auto/); tm5 19:01 Pulse 96 MON; Pulse Ox 95% ; tm5 20:06 BP 163 / 79 (auto/); tm5 20:08 Pulse 124 MON; tm5 20:18 BP 165 / 64 (auto/); tm5 20:19 Pulse 100 MON; Pulse Ox 100% on 100% Non-rebreather mask; tm5 20:30 BP 118 / 70 (auto/); tm5 20:31 Pulse 96 MON; Pulse Ox 98% ; tm5 20:42 BP 122 / 73 (auto/); tm5 20:43 Pulse Ox 99% ; tm5 21:12 BP 126 / 71 (auto/); tm5 21:13 Pulse Ox 99% ; tm5 21:14 Pulse 97 MON; Pulse Ox 99% ; tm5 21:42 BP 115 / 73 (auto/); tm5 21:43 Pulse 90 MON; Resp 16 S; Pulse Ox 94% on R/A; tm5 22:12 BP 123 / 68 (auto/); tm5 22:13 Pulse 94 MON; tm5 22:42 BP 108 / 74 (auto/); tm5 22:43 Pulse 86 MON; Resp 20 S; Pulse Ox 96% on R/A; Pain 0/10; tm5 23:12 BP 122 / 72 (auto/); tm5 23:12 Pulse 95 MON; Resp 20 S; Temp 98.4(A); Pulse Ox 93% on R/A; Pain 0/10; tm5 23:42 BP 114 / 60 (auto/); tm5 23:43 Pulse 96 MON; Pulse Ox 92% ; tm5 12/10 00:12 BP 114 / 68 (auto/); tm5 00:13 Pulse 94 MON; Resp 16 S; Pulse Ox 96% on R/A; Pain 0/10; tm5 MDM: 12/09 19:15 Consult PFS/PSA/Wire Brush Operator ordered. cs11 19:15 Consult PFS/PSA/Wire Brush Operator: Patient's case requires discussion with on-call cs11 Psychiatrist ordered. 19:15 PSA/PFS to call Nursing Canvas Shrinker, to enter patient data on [place] Safe [place] if patient cs11 involuntarily admitted or transferred for SI or HI ordered. 19:15 Confirm accurate psychiatric medication list and times of last dosage ordered. cs11 19:15 Detain Pt Until Medically/PFS Cleared ordered. cs11 19:16 Acetaminophen Level Ordered. EDMS 19:16 Basic Metabolic Profile Ordered. EDMS 19:16 Complete Blood Count Ordered. EDMS 19:16 Drug Eval Toxicology ED Only Ordered. EDMS 19:16 Ethyl Alcohol (ethanol) Ordered. EDMS 19:16 Liver Profile Ordered. EDMS 19:16 Salicylate Level Ordered. EDMS 19:16 Thyroid Stimulating Hormone Ordered. EDMS 19:17 ECG WITH READING ER PHYS+CARDIAG ordered. EDMS 19:20 Financial registration complete. gb 19:21 CT Head Without Contrast Ordered. EDMS 19:22 [facility] [place] was scanned into [employer] and attached to record. gb 19:57 Straight cath ordered. tm5 20:14 Acetaminophen Level Reviewed. cs11 20:14 Basic Metabolic Profile Reviewed. cs11 20:14 Complete Blood Count Reviewed. cs11 20:14 Liver Profile Reviewed. cs11 20:14 Salicylate Level Reviewed. cs11 20:14 Ethyl Alcohol (ethanol) Reviewed. cs11 20:14 Thyroid Stimulating Hormone Reviewed. cs11 20:18 NS 0.9% 1000 ml IV at bolus once ordered. cs11 20:18 PHENobarbital 60 mg IVP once ordered. cs11 20:24 PHENobarbital 65 mg IVP once ordered. cs11 20:33 CREATINE PHOSPHOKINASE Ordered. EDMS 20:36 Acetaminophen Level Reviewed. cs11 20:36 Basic Metabolic Profile Reviewed. cs11 20:36 Drug Eval Toxicology ED Only Reviewed. cs11 20:36 Liver Profile Reviewed. cs11 20:36 Salicylate Level Reviewed. cs11 20:36 Ethyl Alcohol (ethanol) Reviewed. cs11 20:36 Thyroid Stimulating Hormone Reviewed. cs11 20:36 CREATINE PHOSPHOKINASE Reviewed. cs11 22:12 BED REQUEST+ADM ordered. EDMS 22:28 Admission / Observation Status ordered. EDMS 22:57 LORazepam 1 mg IVP once ordered. cs11 22:59 Consult PFS/PSA/Wire Brush Operator complete. cl 23:00 Consult PFS/PSA/Wire Brush Operator: Patient's case requires discussion with on-call cl Psychiatrist complete. 23:00 PSA/PFS to call Nursing Canvas Shrinker, to [place] if patient cl involuntarily admitted or transferred for SI or HI complete. 23:05 BASIC METABOLIC PROFILE Ordered. EDMS 23:05 COMPLETE BLOOD COUNT Ordered. EDMS 23:05 BASIC METABOLIC PROFILE Ordered. EDMS 23:06 PARTIAL THROMBOPLASTIN TIME Ordered. EDMS 23:07 REGULAR DIET ordered. EDMS 23:13 PROTHROMBIN TIME PROFILE\E\INR Ordered. EDMS 23:35 PHYSICAL THERAPY EVAL & TREAT ordered. EDMS 12/10 12:04 T-Sheet-- Draft Copy was scanned into [employer] and attached to record. gb 12:05 ECG/EKG was scanned into [employer] and attached to record. gb 12:05 Radiology Report was scanned into [employer] and attached to record. gb Administered Medications: 12/09 20:24 Not Given (..): PHENobarbital 60 mg IVP once cs11 20:26 Drug: NS 0.9% 1000 ml [sodium chloride 0.9 % intravenous solution] Route: IV; Rate: tm5 bolus; Site: right forearm; 21:30 Follow up: IV Status: Completed infusion; IV Intake: 1000ml tm5 20:26 Drug: PHENobarbital 65 mg [phenobarbital sodium 65 mg/mL injection solution (1 mL)] tm5 Route: IVP; Site: right forearm; 22:58 Follow up: Response: No Adverse Reaction tm5 23:02 Drug: LORazepam 1 mg [lorazepam 2 mg/mL injection solution (0.5 mL)] Route: IVP; Site: tm5 right forearm; Critical Care Time: 22:18 Critical care time: Bedside Care: 120 minutes. Total time: 120 minutes cs11 Signatures: Dispatcher [employer] EDMS Sharlene Alejo, RN RN Ben Arana, NICOLE PSA cl Dalia Brambila, Reg Reg Freddie Grady RN RN ml6 Ja Martinez DO DO cs11 Vicki Brand,RN RN tm5 The chart was reviewed and I authenticate all verbal orders and agree with the evaluation and treatment provided.Corrections: (The following items were deleted from the chart) 20:32 19:36 CREATINE PHOSPHOKINASE+LAB ordered. EDDE EDMS 23:12 23:05 PROTHROMBIN TIME PROFILE\E\INR ordered. EDDE EDMS Attachments: 19:22 [facility] Payment Agreement 12/10 12:04 T-Sheet-- Draft Copy gb 12:05 ECG/EKG Chart Complete MTDD
--- NOTE | 2016-12-12 01:44 | EDDOCDS ---
Physician Documentation [facility] Name: Gavin Marvin Age: 51 yrs Sex: Male : 1965 Arrival Date: 12/09/2016 Time: 18:38 Bed 3 Private MD: Disposition: 12/09 22:18 Critical Care:. cs11 Disposition: 12/09/16 22:17 Hospitalization ordered by Dustin Quinonez for Inpatient Admission. Preliminary diagnosis is Poisoning by selective serotonin and norepinephrine reuptake inhibitors, accidental (unintentional). - Bed requested for PCU. - Status is Inpatient Admission. tm5 - Condition is Stable. - Problem is new. - Symptoms have improved. Historical: - Allergies: Toradol (Hives); Tramadol HCl (Hives); - Home Meds: 1. Ambien 10 mg Oral tab (Last dose: Unknown) 2. clonidine HCl 0.2 mg Oral tab 1 tab 2 times per day (Last dose: Unknown) 3. gabapentin 400 mg Oral cap 800 mg twice a day (Last dose: Unknown) 4. Seroquel 300 mg Oral tab 1 tab once daily (Last dose: Unknown) - PMHx: Chronic Back pain; COPD; Depression; Substance Abuse; - PSHx: back surgery; Carpal Tunnel Repair- Bilateral; - Social history: Smoking status: Patient uses tobacco products, heavy tobacco smoker. Patient uses street drugs, No barriers to communication noted, Speaks appropriately for age. - Family history: Not pertinent. - : The pt / caregiver states he / she is not on anticoagulants. Home medication list is obtained from the patient. - Exposure Risk Screening:: None identified. Vital Signs: 18:54 BP 132 / 87; Pulse 83; Resp 17; Temp 98.6(T); Pulse Ox 96% on R/A; lr2 19:00 BP 129 / 85 (auto/); tm5 19:01 Pulse 96 MON; Pulse Ox 95% ; tm5 20:06 BP 163 / 79 (auto/); tm5 20:08 Pulse 124 MON; tm5 20:18 BP 165 / 64 (auto/); tm5 20:19 Pulse 100 MON; Pulse Ox 100% on 100% Non-rebreather mask; tm5 20:30 BP 118 / 70 (auto/); tm5 20:31 Pulse 96 MON; Pulse Ox 98% ; tm5 20:42 BP 122 / 73 (auto/); tm5 20:43 Pulse Ox 99% ; tm5 21:12 BP 126 / 71 (auto/); tm5 21:13 Pulse Ox 99% ; tm5 21:14 Pulse 97 MON; Pulse Ox 99% ; tm5 21:42 BP 115 / 73 (auto/); tm5 21:43 Pulse 90 MON; Resp 16 S; Pulse Ox 94% on R/A; tm5 22:12 BP 123 / 68 (auto/); tm5 22:13 Pulse 94 MON; tm5 22:42 BP 108 / 74 (auto/); tm5 22:43 Pulse 86 MON; Resp 20 S; Pulse Ox 96% on R/A; Pain 0/10; tm5 23:12 BP 122 / 72 (auto/); tm5 23:12 Pulse 95 MON; Resp 20 S; Temp 98.4(A); Pulse Ox 93% on R/A; Pain 0/10; tm5 23:42 BP 114 / 60 (auto/); tm5 23:43 Pulse 96 MON; Pulse Ox 92% ; tm5 12/10 00:12 BP 114 / 68 (auto/); tm5 00:13 Pulse 94 MON; Resp 16 S; Pulse Ox 96% on R/A; Pain 0/10; tm5 MDM: 12/09 19:15 Consult PFS/PSA/Splunk Developer ordered. cs11 19:15 Consult PFS/PSA/Splunk Developer: Patient's case requires discussion with on-call cs11 Psychiatrist ordered. 19:15 PSA/PFS to call Nursing Occupational Health And Safety Officer, to enter [place] data [place] if patient cs11 involuntarily admitted or transferred for SI or HI ordered. 19:15 Confirm accurate psychiatric medication list and times of last dosage ordered. cs11 19:15 Detain Pt Until Medically/PFS Cleared ordered. cs11 19:16 Acetaminophen Level Ordered. EDMS 19:16 Basic Metabolic Profile Ordered. EDMS 19:16 Complete Blood Count Ordered. EDMS 19:16 Drug Eval Toxicology ED Only Ordered. EDMS 19:16 Ethyl Alcohol (ethanol) Ordered. EDMS 19:16 Liver Profile Ordered. EDMS 19:16 Salicylate Level Ordered. EDMS 19:16 Thyroid Stimulating Hormone Ordered. EDMS 19:17 ECG WITH READING ER PHYS+CARDIAG ordered. EDMS 19:20 Financial registration complete. gb 19:21 CT Head Without Contrast Ordered. EDMS 19:22 [facility] [place] Agreement was scanned into [employer] and attached to record. gb 19:57 Straight cath ordered. tm5 20:14 Acetaminophen Level Reviewed. cs11 20:14 Basic Metabolic Profile Reviewed. cs11 20:14 Complete Blood Count Reviewed. cs11 20:14 Liver Profile Reviewed. cs11 20:14 Salicylate Level Reviewed. cs11 20:14 Ethyl Alcohol (ethanol) Reviewed. cs11 20:14 Thyroid Stimulating Hormone Reviewed. cs11 20:18 NS 0.9% 1000 ml IV at bolus once ordered. cs11 20:18 PHENobarbital 60 mg IVP once ordered. cs11 20:24 PHENobarbital 65 mg IVP once ordered. cs11 20:33 CREATINE PHOSPHOKINASE Ordered. EDMS 20:36 Acetaminophen Level Reviewed. cs11 20:36 Basic Metabolic Profile Reviewed. cs11 20:36 Drug Eval Toxicology ED Only Reviewed. cs11 20:36 Liver Profile Reviewed. cs11 20:36 Salicylate Level Reviewed. cs11 20:36 Ethyl Alcohol (ethanol) Reviewed. cs11 20:36 Thyroid Stimulating Hormone Reviewed. cs11 20:36 CREATINE PHOSPHOKINASE Reviewed. cs11 22:12 BED REQUEST+ADM ordered. EDMS 22:28 Admission / Observation Status ordered. EDMS 22:57 LORazepam 1 mg IVP once ordered. cs11 22:59 Consult PFS/PSA/Splunk Developer complete. cl 23:00 Consult PFS/PSA/Splunk Developer: Patient's case requires discussion with on-call cl Psychiatrist complete. 23:00 PSA/PFS to call Nursing Occupational Health And Safety Officer, to [place] if patient cl involuntarily admitted or transferred for SI or HI complete. 23:05 BASIC METABOLIC PROFILE Ordered. EDMS 23:05 COMPLETE BLOOD COUNT Ordered. EDMS 23:05 BASIC METABOLIC PROFILE Ordered. EDMS 23:06 PARTIAL THROMBOPLASTIN TIME Ordered. EDMS 23:07 REGULAR DIET ordered. EDMS 23:13 PROTHROMBIN TIME PROFILE\E\INR Ordered. EDMS 23:35 PHYSICAL THERAPY EVAL & TREAT ordered. EDMS 12/10 12:04 T-Sheet-- Draft Copy was scanned into [employer] and attached to record. gb 12:05 ECG/EKG was scanned into [employer] and attached to record. gb 12:05 Radiology Report was scanned into [employer] and attached to record. gb Administered Medications: 12/09 20:24 Not Given (..): PHENobarbital 60 mg IVP once cs11 20:26 Drug: NS 0.9% 1000 ml [sodium chloride 0.9 % intravenous solution] Route: IV; Rate: tm5 bolus; Site: right forearm; 21:30 Follow up: IV Status: Completed infusion; IV Intake: 1000ml tm5 20:26 Drug: PHENobarbital 65 mg [phenobarbital sodium 65 mg/mL injection solution (1 mL)] tm5 Route: IVP; Site: right forearm; 22:58 Follow up: Response: No Adverse Reaction tm5 23:02 Drug: LORazepam 1 mg [lorazepam 2 mg/mL injection solution (0.5 mL)] Route: IVP; Site: tm5 right forearm; Critical Care Time: 22:18 Critical care time: Bedside Care: 120 minutes. Total time: 120 minutes cs11 Signatures: Dispatcher [employer] EDMS Sharlene Alejo, RN RN Ben Arana, NICOLE PSA cl Dalia Brambila, Reg Reg Freddie Grady RN RN ml6 Ja Martinez DO DO cs11 Vicki Brand,RN RN tm5 The chart was reviewed and I authenticate all verbal orders and agree with the evaluation and treatment provided.Corrections: (The following items were deleted from the chart) 20:32 19:36 CREATINE PHOSPHOKINASE+LAB ordered. EDPR EDMS 23:12 23:05 PROTHROMBIN TIME PROFILE\E\INR ordered. EDPR EDMS Attachments: 19:22 [facility] Payment Agreement 12/10 12:04 T-Sheet-- Draft Copy gb 12:05 ECG/EKG Chart Complete MTDD
--- NOTE | 2016-12-12 01:44 | EDDOCDS ---
Nurse's Notes [facility] Name: Gagandeep Marvin Age: 51 yrs Sex: Male : 1965 Arrival Date: 12/09/2016 Time: 18:38 Bed 3 Private MD: Diagnosis: Poisoning by selective serotonin and norepinephrine reuptake inhibitors, accidental (unintentional) Presentation: 12/09 18:55 Presenting complaint: per EMS, they were called for seizure, patient found lethargic, ml6 with suboxone and assorted pills, patient refusing to talk to anyone. Adult Sepsis Screening: The patient does not have new or worsening altered mentation. Patient's respiratory rate is less than 22. Systolic blood pressure is greater than 100. Patient has a qSOFA score of 0- Negative Sepsis Screen. Suicide/Homicide risk assessment- the patient denies having any suicidal and/or homicidal ideations and does not present with any other emotional, behavioral or mental health complaints. Status: Patient is not a servicer or dependent. Transition of care: patient was not received from another setting of care. 18:55 Acuity: TIMUR Level 2 ml6 18:55 Method Of Arrival: Ambulance ml6 Triage Assessment: 19:02 General: Appears unkempt, Behavior is anxious, cooperative. Pain: Denies pain. HIV ml6 screening NA for this visit Offered previously. Neurological: No deficits noted. Cardiovascular: No deficits noted. Capillary refill < 3 seconds is brisk in bilateral fingers toes. Respiratory: No deficits noted. GI: Abdomen is flat, non- distended. Historical: - Allergies: Toradol (Hives); Tramadol HCl (Hives); - Home Meds: 1. Ambien 10 mg Oral tab (Last dose: Unknown) 2. clonidine HCl 0.2 mg Oral tab 1 tab 2 times per day (Last dose: Unknown) 3. gabapentin 400 mg Oral cap 800 mg twice a day (Last dose: Unknown) 4. Seroquel 300 mg Oral tab 1 tab once daily (Last dose: Unknown) - PMHx: Chronic Back pain; COPD; Depression; Substance Abuse; - PSHx: back surgery; Carpal Tunnel Repair- Bilateral; - Social history: Smoking status: Patient uses tobacco products, heavy tobacco smoker. Patient uses street drugs, No barriers to communication noted, Speaks appropriately for age. - Family history: Not pertinent. - : The pt / caregiver states he / she is not on anticoagulants. Home medication list is obtained from the patient. - Exposure Risk Screening:: None identified. Screenin:06 Screening information is obtained from the patient. Fall risk: At risk due to apparent tm5 chemical impairment. Assistance ADL's: unable to assess. Abuse/DV Screen: The patient / caregiver reports he/she is: pt cannot be assessed for living situation at this time. Unable to Assess. Nutritional screening: Unable to Assess. Advance Directives: Unable to assess Advance Directive status due to pt condition. home support is adequate. Assessment: 18:55 General: see triage assessment. ml6 19:22 General: per kiln charger & other staff members pt was noted to have active seizure tm5 activity, pt lethargic after seizure like activity but pt was not incontinent of urine, pt does follow commands after seizure, pt was placed on Oxygen at 2 L NC after seizure, pt with no know history of seizures per staff members that know him, pt with noted twitching to entire body. Cardiovascular: Rhythm is sinus tachycardia No ectopy. Derm: Skin is pink, warm & dry. 19:22 Neurological: Level of Consciousness is lethargic, Speech pt won't speak to staff tm5 members. Facial symmetry appears normal, Pupils are sluggish, pinpoint. 20:05 General: pt with another active seizure lasting about 2 minutes, MD \T\ bedside & tm5 witnessed seizure, small amounts of clear secretions suctioned from mouth, pt placed on 100% NRB during seizure, blood noted in mouth as well, appears to have bitten tongue or lip. 20:56 General: pt's medication sent to pharmacy via newswriter, per policy, paperwork in chart. [facility] 21:18 General: pt is with active seizure lasting about 1 minute, aware & no new orders at tm5 this time, small amounts of clear secretions suctioned from mouth, seizure does stop on it's own, pt is not incontinent of urine with seizure, seizure precautions remain in place . 21:51 Reassessment: Patient appears in no apparent distress at this time. Patient states tm5 symptoms have improved. pt resting with eyes closed, no seizure activity . Cardiovascular: Rhythm is sinus rhythm No ectopy. 22:34 Reassessment: Patient appears in no apparent distress at this time. Patient states tm5 symptoms have improved. no seizure like activity noted at this time, NSR on monitor, pt resting with eyes closed at this time . Cardiovascular: Rhythm is sinus rhythm No ectopy. 23:12 General: pt incontinent of large amounts of urine at this time, complete bed change tm5 done, pt awakened with confusion & uncooperative with care, warm blankets applied, seizure precautions remain in place . 23:18 General: SBAR faxed & tubed to PCU at this time . tm5 12/10 00:34 General: PCU ready for pt's admission to the floor . tm5 Vital Signs: 12/09 18:54 BP 132 / 87; Pulse 83; Resp 17; Temp 98.6(T); Pulse Ox 96% on R/A; lr2 19:00 BP 129 / 85 (auto/); tm5 19:01 Pulse 96 MON; Pulse Ox 95% ; tm5 20:06 BP 163 / 79 (auto/); tm5 20:08 Pulse 124 MON; tm5 20:18 BP 165 / 64 (auto/); tm5 20:19 Pulse 100 MON; Pulse Ox 100% on 100% Non-rebreather mask; tm5 20:30 BP 118 / 70 (auto/); tm5 20:31 Pulse 96 MON; Pulse Ox 98% ; tm5 20:42 BP 122 / 73 (auto/); tm5 20:43 Pulse Ox 99% ; tm5 21:12 BP 126 / 71 (auto/); tm5 21:13 Pulse Ox 99% ; tm5 21:14 Pulse 97 MON; Pulse Ox 99% ; tm5 21:42 BP 115 / 73 (auto/); tm5 21:43 Pulse 90 MON; Resp 16 S; Pulse Ox 94% on R/A; tm5 22:12 BP 123 / 68 (auto/); tm5 22:13 Pulse 94 MON; tm5 22:42 BP 108 / 74 (auto/); tm5 22:43 Pulse 86 MON; Resp 20 S; Pulse Ox 96% on R/A; Pain 0/10; tm5 23:12 BP 122 / 72 (auto/); tm5 23:12 Pulse 95 MON; Resp 20 S; Temp 98.4(A); Pulse Ox 93% on R/A; Pain 0/10; tm5 23:42 BP 114 / 60 (auto/); tm5 23:43 Pulse 96 MON; Pulse Ox 92% ; tm5 0216 00:12 BP 114 / 68 (auto/); tm5 00:13 Pulse 94 MON; Resp 16 S; Pulse Ox 96% on R/A; Pain 0/10; tm5 Vitals: 12/09 21:21 Log In Time N/A - ambulance arrival. tm5 ED Course: 18:39 Patient visited by Taima Barr, Manager Cleaning. lbd 18:39 Ayanna Moraes,BRUCE is Primary Nurse. lbd 18:39 Patient moved to Waiting lbd 18:39 Patient moved to 9 lbd 18:39 The patient / caregiver is instructed regarding the plan of care and ED course. Seizure tm5 precautions initiated. 18:46 Patient moved to 3 [facility] 18:49 Savi Stoll DO is Attending Physician. cs11 18:49 Patient visited by Savi Stoll DO. cs11 18:59 Patient visited by Vicki Brand RN. tm5 18:59 Report received from Froylan BARRERA, assumed care of pt at this time. tm5 19:00 Triage Initiated ml6 19:02 Inserted peripheral IV: 18gauge IV in right antecubital area and blood collected. ml6 Patient tolerated the procedure well. Labs drawn. (by ED staff). 19:22 Primary Nurse role handed off by Ayanna Moraes,BRUCE kb5 19:22 Patient visited by Vicki Brand RN. tm5 19:22 [facility] [place] Agreement was scanned into [employer] and attached to record. gb 19:[address] tm5 19:53 Patient visited by Vicki Brand RN. tm5 19:53 Straight cath inserted 16 Fr. Specimen obtained. returned clear yellow urine. Patient tm5 tolerated poorly pt was held down by multiple staff members because he was uncooperative with care, pt appears to be confused as well, pt was asked several times to use the urinal but would not speak to staff members so ordered straight cath to be done. 20:00 Discontinued lock intact, bleeding controlled, pressure dressing applied, No tm5 redness/swelling at site. pt pulled out his IV. 20:21 Inserted saline lock: 20 gauge in right forearm The patient tolerated the procedure tm5 well. IV restarted at this time. 20:27 Patient visited by Vicki Brand RN. tm5 21:18 Patient visited by Vicki Brand RN. tm5 21:51 Patient visited by Vicki Brand RN. tm5 22:16 Dustin Quinonez DO is Hospitalizing Provider. cs11 22:34 Patient visited by Vicki Brand RN. tm5 22:35 EKG-ADULT Returned. EDMS 23:12 Patient visited by Vicki Brand RN. tm5 23:18 Patient visited by Vicki Brand RN. tm5 23:44 Report given to Cristina BARRERA, unable to take pt to the floor at this time care RN isn't tm5 ready. 12/10 00:13 No procedures done that require assistance. tm5 00:34 Patient visited by Vicki Brand RN. tm5 12:04 T-Sheet-- Draft Copy was scanned into [employer] and attached to record. gb 12:05 ECG/EKG was scanned into [employer] and attached to record. gb 12:05 Radiology Report was scanned into [employer] and attached to record. gb Administered Medications: 12/09 20:24 Not Given (..): PHENobarbital 60 mg IVP once cs11 20:26 Drug: NS 0.9% 1000 ml [sodium chloride 0.9 % intravenous solution] Route: IV; Rate: tm5 bolus; Site: right forearm; 21:30 Follow up: IV Status: Completed infusion; IV Intake: 1000ml tm5 20:26 Drug: PHENobarbital 65 mg [phenobarbital sodium 65 mg/mL injection solution (1 mL)] tm5 Route: IVP; Site: right forearm; 22:58 Follow up: Response: No Adverse Reaction tm5 23:02 Drug: LORazepam 1 mg [lorazepam 2 mg/mL injection solution (0.5 mL)] Route: IVP; Site: tm5 right forearm; Intake: 21:30 IV: 1000.00ml; Total: 1000.00ml. tm5 Order Results: Lab Order: Acetaminophen Level; SPEC'M 12/09/16 18:55 Test: ACETAMINOPHEN LEVEL; Value: 4.2; Range: 10.0-30.0; Abnormal: Below low normal; Units: UG/ML; Status: F Lab Order: Basic Metabolic Profile; SPEC'M 12/09/16 18:55 Test: GLUCOSE, FASTING; Value: 105; Range: 70-105; Units: MG/DL; Status: F Test: BLOOD UREA NITROGEN; Value: 3; Range: 7-18; Abnormal: Below low normal; Units: MG/DL; Status: F Test: CREATININE FOR GFR; Value: 1.08; Range: 0.70-1.30; Units: MG/DL; Status: F Test: GLOMERULAR FILTRATION RATE; Value: > 60.0; Range: >60; Status: F Test: SODIUM LEVEL; Value: 138; Range: 136-145; Units: MEQ/L; Status: F Test: POTASSIUM SERUM; Value: 3.6; Range: 3.5-5.1; Units: MEQ/L; Status: F Test: CHLORIDE LEVEL; Value: 102; Range: 98-107; Units: MEQ/L; Status: F Test: CARBON DIOXIDE LEVEL; Value: 26; Range: 21-32; Units: MEQ/L; Status: F Test: ANION GAP; Value: 10; Range: 8-16; Units: MEQ/L; Status: F Test: CALCIUM LEVEL; Value: 8.8; Range: 8.5-10.1; Units: MG/DL; Status: F Test Note: ; Units are mL/min/1.73 m2 Chronic Kidney Disease Staging per NKF: Stage I & II GFR >=60 Normal to Mildly Decreased Stage III GFR 30-59 Moderately Decreased Stage IV GFR 15-29 Severely Decreased Stage V GFR <15 Very Little GFR Left ESRD GFR <15 on TANKER DRIVER Lab Order: Complete Blood Count; [facility]' 12/09/16 18:55 Test: WHITE BLOOD COUNT; Value: 3.6; Range: 4.0-10.0; Abnormal: Below low normal; Units: K/mm3; Status: F Test: RED BLOOD COUNT; Value: 4.17; Range: 4.30-6.10; Abnormal: Below low normal; Units: M/mm3; Status: F Test: HEMOGLOBIN; Value: 13.4; Range: 14.0-18.0; Abnormal: Below low normal; Units: g/dl; Status: F Test: HEMATOCRIT; Value: 39.8; Range: 42.0-52.0; Abnormal: Below low normal; Units: %; Status: F Test: MEAN CORPUSCULAR VOLUME; Value: 95.5; Range: 80.0-96.0; Units: fl; Status: F Test: MEAN CORPUSCULAR HEMOGLOBIN; Value: 32.2; Range: 27.0-33.0; Units: pg; Status: F Test: MEAN CORPUSCULAR HGB CONC; Value: 33.7; Range: 32.0-36.5; Units: g/dl; Status: F Test: RED CELL DISTRIBUTION WIDTH; Value: 13.4; Range: 11.5-14.5; Units: %; Status: F Test: PLATELET COUNT, AUTOMATED; Value: 315; Range: 150-450; Units: k/mm3; Status: F Lab Order: Drug Eval Toxicology ED Only; SPEC'M 12/09/16 19:50 Test: AMPHETAMINES LEVEL URINE; Value: NEGATIVE; Range: NEGATIVE; Status: F Test: BARBITURATES URINE; Value: NEGATIVE; Range: NEGATIVE; Status: F Test: BENZODIAZEPINES URINE; Value: NEGATIVE; Range: NEGATIVE; Status: F Test: CANNABINOIDS URINE; Value: POSITIVE; Range: NEGATIVE; Abnormal: Above high normal; Status: F Test: COCAINE METABOLITE URINE; Value: NEGATIVE; Range: NEGATIVE; Status: F Test: METHADONE URINE; Value: NEGATIVE; Range: NEGATIVE; Status: F Test: OPIATES URINE; Value: POSITIVE; Range: NEGATIVE; Abnormal: Above high normal; Status: F Test: TRICYCLIC ANTIDEPRESS URINE; Value: NEGATIVE; Range: NEGATIVE; Status: F Test Note: ; FALSE POSITIVE RESULTS CAN BE CAUSED BY THE USE OF PANTOPRAZOLE (PROTONIX). Lab Order: Ethyl Alcohol (ethanol); SPEC'M 12/09/16 18:55 Test: ETHYL ALCOHOL (ETHANOL); Value: < 0.003; Range: 0.000-0.010; Units: %; Status: F Lab Order: Liver Profile; SPEC'M 12/09/16 18:55 Test: AST/SGOT; Value: 20; Range: 15-37; Units: U/L; Status: F Test: ALT/SGPT; Value: 24; Range: 12-78; Units: U/L; Status: F Test: ALKALINE PHOSPHATASE; Value: 79; Range: 45-117; Units: U/L; Status: F Test: BILIRUBIN,TOTAL; Value: 0.2; Range: 0.2-1.0; Units: MG/DL; Status: F Test: BILIRUBIN,DIRECT; Value: < 0.1; Range: 0.0-0.2; Units: MG/DL; Status: F Test: TOTAL PROTEIN; Value: 6.9; Range: 6.4-8.2; Units: GM/DL; Status: F Test: ALBUMIN; Value: 3.3; Range: 3.2-5.2; Units: GM/DL; Status: F Test: ALBUMIN/GLOBULIN RATIO; Value: 0.92; Range: 1.00-1.93; Abnormal: Below low normal; Status: F Lab Order: Salicylate Level; SPEC'M 12/09/16 18:55 Test: SALICYLATE LEVEL; Value: 1.9; Range: 5.0-30.0; Abnormal: Below low normal; Units: MG/DL; Status: F Lab Order: Thyroid Stimulating Hormone; SPEC'M 12/09/16 18:55 Test: THYROID STIMULATING HORMONE; Value: 0.882; Range: 0.358-3.740; Units: uIU/ML; Status: F Lab Order: CREATINE PHOSPHOKINASE; SPEC'M 12/09/16 18:55 Test: CPK CREATINE PHOSPHOKINASE; Value: 126; Range: 39-308; Units: U/L; Status: F Radiology Order: EKG-ADULT Test: EKG-ADULT REASON FOR EXAMINATION: drug ingestion; Stationary ECG Study; [facility] - ED; ; Test Date: 2016-12-09; Pat Name: [facility] Department:; Room: -; Gender: M 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 tm5 21:21 Discharge Assessment: patient administered narcotics - no. tm5 22:17 Decision to Hospitalize by Provider. cs11 12/10 00:13 The following High Risk Discharge criteria are identified: None. Admitted to PCU tm5 accompanied by nurse, accompanied by tech, via stretcher, on monitor, with chart. Condition: good Condition: stable Condition: improved. Property :Personal belongings accompany Pt. 00:42 Patient left the ED. tm5 Signatures: Dispatcher [employer] EDMS Tamia Barr, Manager Cleaning Unit lbd Patti Archibald, RN RN mcp Dalia Brambila, Reg Reg gb William Odom, PEDIATRIC DERMATOLOGIST PEDIATRIC DERMATOLOGIST kb5 Freddie Carcamo, RN RN ml6 Esperanza Gonzales, RN RN sls1 Savi Stoll, DO cs11 Vicki Brand,RN RN tm5 Micaela Young lr2 Corrections: (The following items were deleted from the chart) 12/09 20:21 20:19 General: pt with another active seizure lasting about 2 minutes, MD \T\ bedside & tm5 witnessed seizure, small amounts of clear secretions suctioned from mouth, pt placed on 100% NRB during seizure, blood noted in mouth as well, appears to have bitten tongue or lip. tm5 20:32 19:58 CREATINE PHOSPHOKINASE+LAB sent. tm5 EDMS Chart Complete MTDD
[2016-12-12] MEDS ORDERED: LORazepam 2 MG/ML VIAL (J2060) IV PRN (03:45)
[2016-12-12] MEDS: POTASSIUM CHLORIDE INJ 40 MEQ in LR 1,000 ML IV SCH (04:32)
[2016-12-12 06:00] VITALS: BP 129/77
[2016-12-12] MEDS ORDERED: OXAZEPAM 15 MG CAP PO SCH (06:00)
[2016-12-12 06:43] LABS: MEAN CORPUSCULAR HEMOGLOBIN 32.3 pg (27.0-33.0); MEAN CORPUSCULAR HGB CONC 33.8 g/dl (32.0-36.5); MEAN CORPUSCULAR VOLUME 95.8 fl (80.0-96.0); RED CELL DISTRIBUTION WIDTH 13.6 % (11.5-14.5)
[2016-12-12 06:59] LABS: ANION GAP 10 MEQ/L (8-16); BLOOD UREA NITROGEN 13 MG/DL (7-18); CALCIUM LEVEL 8.3 MG/DL (8.5-10.1); CARBON DIOXIDE LEVEL 23 MEQ/L (21-32); CHLORIDE LEVEL 111 MEQ/L (98-107); CREATININE FOR GFR 0.73 MG/DL (0.70-1.30); GLOMERULAR FILTRATION RATE > 60.0 (>60); GLUCOSE, FASTING 73 MG/DL (70-105); MAGNESIUM LEVEL 1.8 MG/DL (1.8-2.4); POTASSIUM SERUM 4.6 MEQ/L (3.5-5.1); SODIUM LEVEL 144 MEQ/L (136-145)
[2016-12-12] MEDS: ADVAIR DISKUS 250/50 INH PWD INH SCH ×2 (08:37→20:20)
[2016-12-12] MEDS: HEPARIN SOD (PORCINE) 5000 UNITS/ML VIAL SQ SCH ×2 (09:00→21:26)
[2016-12-12] MEDS: FLUTICASONE PROP 0.05% NASAL SPRAY 16 GM (FLONASE) SCH (09:00)
[2016-12-12] MEDS: THIAMINE 100 MG TAB PO SCH (09:00)
[2016-12-12] MEDS: MULTIVITAMINS/MINERALS THERAP 1 TAB PO SCH (11:19)
[2016-12-12] MEDS: BUPRENORPHINE/NALOXONE 8-2MG SUBLINGUAL TABLET(SUBOXONE) SL SCH ×2 (11:19→21:25)
[2016-12-12] MEDS: FOLIC ACID 1 MG TAB PO SCH (11:20)
--- NOTE | 2016-12-12 11:37 | IPN ---
DATE: 12/11/2016 Patient is seen and examined. Patient initially intubated on propofol drip. Spontaneous trial performed for sedation vacation. Patient placed on spontaneous trial with rapid shallow breathing index of 48 and patient is awake following commands. Arterial blood gas (ABG) appreciated. Subsequently, patient is extubated. After extubation, patient is mildly confused but denies any chest pain, pressure, or discomfort. Does not know why patient is here. Denies any substance usage and does not even know why patient is at the hospital. VITAL SIGNS: Temperature 98, heart rate 62, respirations 18, blood pressure 111/59, pulse oximetry 96% on room air. LABORATORY DATA: WBC 6, hemoglobin and hematocrit 11.2/33.1, platelets 236. Chemistry: Sodium 145, potassium 3.6, chloride 110, bicarbonate 27, BUN 8, creatinine 0.82. PHYSICAL EXAMINATION: GENERAL: Patient alert, oriented times two, in no acute distress. Initially patient was intubated and sedated. HEENT: Normocephalic, atraumatic. Pupils equal, round, and reactive. RESPIRATORY: Bilaterally clear to auscultation, distant breath sounds. No wheeze, rales, or rhonchi. CARDIAC: Regular rate and rhythm, normal S1, S2. ABDOMEN: Soft, nontender, nondistended. Positive bowel sounds. EXTREMITIES: No clubbing, cyanosis, or edema. ASSESSMENT AND PLAN: This is a 61-year-old male patient with underlying medical history of chronic obstructive pulmonary disease (COPD), depression, polysubstance abuse, history of methicillin-resistant Staphylococcus aureus (MRSA) of the right knee, chronic back pain and neck pain, anxiety, umbilical hernia, insomnia, recently discharged following inpatient mental health for substance overdose, patient admitted with questionable seizure and altered mental status, emergency medical service (EMS) found undisclosed pills and also Suboxone right next to the patient. 1. Altered mental status, metabolic encephalopathy, possibly secondary to substance overdose. Patient was extubated today. Withdrawal precaution. One-to-one sitters. Seizure precaution. Elopement precaution. Ativan standing and as needed. Neurologic checks. Intravenous (IV) fluids. Banana bag was given. Diet has been advanced. 2. Questionable seizure, possible withdrawal seizure. Patient with history of polysubstance abuse. Seizure precaution. Neurologic checks. Patient is extubated. Will assess patient's baseline status. 3. Polysubstance abuse, possibly substance overdose. Patient extubated. Will monitor patient's mental status. Ativan intravenous (IV), standing and as needed, will taper and once patient is tolerating oral better will place the patient on patient's home medication of Suboxone. Thiamine, multivitamin, and folic acid. Banana bag initially given. 4. Chronic obstructive pulmonary disease (COPD). Nebulizer treatment. Patient's home medication was restarted. Currently on Advair. 5. Chronic pain. Withholding pain medication for now, patient is not having any distress. 6. Depression. Will consult psychiatry once patient is improved. 7. Deep venous thrombosis (DVT) prophylaxis. Heparin subcutaneous. DISPOSITION PLANNING: Pending clinical improvement and psychiatry consultation.
[2016-12-12 14:00] VITALS: BP 113/65
[2016-12-12 22:00] VITALS: BP 121/83
[2016-12-13 06:00] VITALS: BP 138/82
[2016-12-13] MEDS: ONDANSETRON 4MG/2ML VIAL (J2405) IV PRN ×3 (06:07→20:27)
[2016-12-13 06:55] LABS: MEAN CORPUSCULAR HGB CONC 33.6 g/dl (32.0-36.5); MEAN CORPUSCULAR VOLUME 95.3 fl (80.0-96.0); RED CELL DISTRIBUTION WIDTH 13.8 % (11.5-14.5); WHITE BLOOD COUNT 5.7 K/mm3 (4.0-10.0)
[2016-12-13 07:01] LABS: ANION GAP 9 MEQ/L (8-16); BLOOD UREA NITROGEN 9 MG/DL (7-18); CALCIUM LEVEL 8.3 MG/DL (8.5-10.1); CARBON DIOXIDE LEVEL 27 MEQ/L (21-32); CHLORIDE LEVEL 109 MEQ/L (98-107); CREATININE FOR GFR 0.73 MG/DL (0.70-1.30); GLOMERULAR FILTRATION RATE > 60.0 (>60); GLUCOSE, FASTING 107 MG/DL (70-105); MAGNESIUM LEVEL 1.5 MG/DL (1.8-2.4); POTASSIUM SERUM 3.7 MEQ/L (3.5-5.1); SODIUM LEVEL 145 MEQ/L (136-145)
[2016-12-13] MEDS: ADVAIR DISKUS 250/50 INH PWD INH SCH ×2 (07:42→21:27)
[2016-12-13] MEDS ORDERED: MAG SULF 1GM/100ML (MAG RUN) 1 GM in APPROPRIATE DILUENT 1 EA IV ONE (08:00)
[2016-12-13 08:22] LABS: AMYLASE 54 U/L (25-115)
[2016-12-13] MEDS ORDERED: GASTROGRAFIN SOLUTION 30ML PO ONE (09:00)
[2016-12-13] MEDS: FLUTICASONE PROP 0.05% NASAL SPRAY 16 GM (FLONASE) SCH (09:00)
[2016-12-13] MEDS: HEPARIN SOD (PORCINE) 5000 UNITS/ML VIAL SQ SCH ×2 (09:00→21:24)
[2016-12-13] MEDS ORDERED: GASTROGRAFIN SOLUTION 30ML (Q9963) PO ONE (09:30)
[2016-12-13] MEDS: FOLIC ACID 1 MG TAB PO SCH (10:55)
[2016-12-13] MEDS: THIAMINE 100 MG TAB PO SCH (10:55)
[2016-12-13] MEDS: MULTIVITAMINS/MINERALS THERAP 1 TAB PO SCH (10:55)
[2016-12-13] MEDS: BUPRENORPHINE/NALOXONE 8-2MG SUBLINGUAL TABLET(SUBOXONE) SL SCH ×2 (10:56→21:24)
[2016-12-13] MEDS: LORazepam 2 MG/ML VIAL (J2060) IV PRN ×2 (13:46→23:25)
[2016-12-13 14:00] VITALS: BP 121/81
[2016-12-13] MEDS ORDERED: ISOVUE-370 76% 100ML VIAL (Q9967) As Ordered ONE (15:40)
[2016-12-13] MEDS: LR 1,000 ML IV SCH (16:53)
--- NOTE | 2016-12-13 16:57 | REP ---
Clinical: Abdominal pain with nausea and vomiting. Technique: Axial contrast enhanced images from the lung bases to the pubic symphysis using oral and 100 ml Isovue 370 intravenous contrast material with coronal and sagittal re-formations. Comparison: 02/09/2016. Findings: Lung bases demonstrate trace basilar atelectasis with chronic emphysematous changes and mild bronchiectasis. 1.3 cm right lobe hepatic cyst remains stable. Spleen, pancreas, gallbladder, bilateral adrenal glands are normal. Kidneys demonstrate stable cysts (left greater than right) without perinephric stranding or hydroureteronephrosis. The enteric system is without obstruction. The appendix is normal caliber and without obvious acute appendicitis. Pelvis demonstrates air in bladder which may be secondary to prior Murillo catheterization. The prostate gland and seminal vesicles appear normal. There is a small amount of free fluid in the deep pelvis of uncertain etiology. No adenopathy. Vasculature is normal. Musculoskeletal structures demonstrate degenerative changes and evidence for prior laminectomy. There is a small amount of gas in in the subcutaneous tissues overlying the right rectus muscle which requires correlation with recent procedure. Impression: 1. Trace basilar atelectasis. 2. Small amount of gas in the subcutaneous tissues overlying the right rectus muscle requires correlation. 3. Small amount of free fluid in the pelvis of uncertain etiology. 4. Solitary hepatic and multiple bilateral renal cysts unchanged. 5. Small amount of gas in the bladder which may be secondary to prior Murillo catheterization. 6. Degenerative changes to the lumbosacral spine with prior laminectomy. Signed by Jean Donovan MD 12/13/2016 04:48 P
[2016-12-13] MEDS: SUCRALFATE 1 GM TAB PO SCH (21:23)
[2016-12-13] MEDS: SENOKOT S TAB PO SCH (21:23)
[2016-12-13] MEDS: LevoFLOXacin IV 500 MG in APPROPRIATE DILUENT 1 EA IV SCH (21:25)
[2016-12-13 22:00] VITALS: BP 141/92
[2016-12-13] MEDS: PANTOPRAZOLE 40MG TAB (PROTONIX) PO SCH (22:00)
[2016-12-13] MEDS: MIRALAX *UNIT DOSE* 17GM PACKET PO SCH (22:00)
[2016-12-14] MEDS: LR 1,000 ML IV SCH ×2 (04:54→17:02)
[2016-12-14] MEDS: ONDANSETRON 4MG/2ML VIAL (J2405) IV PRN ×2 (04:54→16:01)
[2016-12-14] MEDS ORDERED: ACETAMINOPHEN TAB 650MG DOSE (2X325MG) PO PRN (05:45)
[2016-12-14 06:00] VITALS: BP 138/87
[2016-12-14 07:12] LABS: MEAN CORPUSCULAR HEMOGLOBIN 32.8 pg (27.0-33.0); MEAN CORPUSCULAR HGB CONC 34.2 g/dl (32.0-36.5); MEAN CORPUSCULAR VOLUME 95.9 fl (80.0-96.0); RED CELL DISTRIBUTION WIDTH 13.8 % (11.5-14.5); WHITE BLOOD COUNT 5.7 K/mm3 (4.0-10.0)
[2016-12-14 07:23] LABS: ANION GAP 7 MEQ/L (8-16); BLOOD UREA NITROGEN 6 MG/DL (7-18); CALCIUM LEVEL 8.7 MG/DL (8.5-10.1); CARBON DIOXIDE LEVEL 31 MEQ/L (21-32); CHLORIDE LEVEL 107 MEQ/L (98-107); CREATININE FOR GFR 0.74 MG/DL (0.70-1.30); GLOMERULAR FILTRATION RATE > 60.0 (>60); GLUCOSE, FASTING 93 MG/DL (70-105); MAGNESIUM LEVEL 1.8 MG/DL (1.8-2.4); POTASSIUM SERUM 3.4 MEQ/L (3.5-5.1); SODIUM LEVEL 145 MEQ/L (136-145)
--- NOTE | 2016-12-14 08:27 | IPN ---
DATE: 12/12/2016 Patient is seen and examined. No acute events overnight. Denies any chest pain, pressure or discomfort. Denies any fevers or chills. He still denies taking any substances. Smiles. VITAL SIGNS: Temperature 97.5, pulse 44, respirations 18, blood pressure 129/77, pulse oximetry 96% on room air. LABORATORY DATA: WBC 6, hemoglobin and hematocrit 12.5/37.1, platelets 266. Chemistry: Sodium 144, potassium 4.6, chloride 111, bicarbonate 23, BUN 13, creatinine 0.73. PHYSICAL EXAMINATION: GENERAL: Patient alert, oriented times two, poor historian, in no acute distress. HEENT: Normocephalic, atraumatic. Pupils equal, round, and reactive. RESPIRATORY: Bilaterally clear to auscultation, distant breath sounds. No wheeze, rales, or rhonchi. CARDIAC: Regular rate and rhythm, normal S1, S2. ABDOMEN: Soft, nontender. Positive bowel sounds. EXTREMITIES: No clubbing, cyanosis, or edema. NEUROLOGIC: No focal deficits. ASSESSMENT AND PLAN: This is a 61-year-old male patient with underlying medical history of chronic obstructive pulmonary disease (COPD), depression, polysubstance abuse, history of methicillin-resistant Staphylococcus aureus (MRSA) of the right knee, chronic back pain and neck pain, anxiety, umbilical hernia, insomnia, recently discharged following inpatient mental health for substance overdose, patient admitted with questionable seizure with altered mental status, emergency medical service (EMS) found undisclosed pills and also Suboxone right next to the patient. 1. Altered mental status, metabolic encephalopathy, possibly secondary to polysubstance overdose. Patient was initially intubated and currently extubated today. Withdrawal precaution. One-to-one sitters. Seizure precaution. Elopement precaution. Ativan needed. Suboxone has been restarted. Neurologic checks. Intravenous (IV) fluids initially provided currently discontinued. Diet has been advanced. 2. Questionable seizure, possibly secondary to withdrawal or drug induced. Patient has history of polysubstance abuse. Seizure precaution. Neurologic checks. Patient is extubated, currently almost back to baseline. 3. Polysubstance abuse, possibly overdose. Patient currently extubated. Will monitor patient's mental status. Ativan as needed. Suboxone has been restarted, given thiamine, folate and multivitamin. Banana bag was initially given. Consulted psychiatry and awaiting psychiatric decision. 4. Chronic obstructive pulmonary disease (COPD). Nebulizer treatment. Advair. 5. Chronic pain. Withholding pain medication. Patient has been uncomfortable. 6. Depression. Consulted psychiatry, possible transfer to inpatient mental health unit. 7. Deep venous thrombosis (DVT) prophylaxis. Heparin subcutaneous. DISPOSITION PLANNING: Pending clinical improvement and psychiatric consultation, possible discharge to inpatient mental health.
[2016-12-14] MEDS: FLUTICASONE PROP 0.05% NASAL SPRAY 16 GM (FLONASE) SCH (09:00)
[2016-12-14] MEDS: ADVAIR DISKUS 250/50 INH PWD INH SCH ×2 (09:09→19:54)
[2016-12-14] MEDS: MIRALAX *UNIT DOSE* 17GM PACKET PO SCH ×2 (09:45→09:58)
[2016-12-14] MEDS: FOLIC ACID 1 MG TAB PO SCH ×2 (09:45→09:58)
[2016-12-14] MEDS: BUPRENORPHINE/NALOXONE 8-2MG SUBLINGUAL TABLET(SUBOXONE) SL SCH ×3 (09:45→20:46)
[2016-12-14] MEDS: PANTOPRAZOLE 40MG TAB (PROTONIX) PO SCH ×2 (09:45→21:29)
[2016-12-14] MEDS: MULTIVITAMINS/MINERALS THERAP 1 TAB PO SCH ×2 (09:45→09:58)
[2016-12-14] MEDS: THIAMINE 100 MG TAB PO SCH ×2 (09:45→09:59)
[2016-12-14] MEDS: SENOKOT S TAB PO SCH ×3 (09:45→21:29)
[2016-12-14] MEDS: HEPARIN SOD (PORCINE) 5000 UNITS/ML VIAL SQ SCH ×3 (09:46→21:29)
[2016-12-14] MEDS: SUCRALFATE 1 GM TAB PO SCH ×5 (09:46→21:30)
[2016-12-14] MEDS ORDERED: POTASSIUM CHLORIDE 10 MEQ SR TABLET PO ONE (10:00)
[2016-12-14 14:00] VITALS: BP 127/82
--- NOTE | 2016-12-14 16:40 | IPN ---
DATE: 12/13/2016 SUBJECTIVE: The patient is seen and examined. Reported nausea and vomiting. Denies any fevers, chills, chest pain, pressure or discomfort. Not tolerating much oral. VITAL SIGNS: Temperature 97.6, pulse 66, respirations 16, blood pressure 138/82, pulse oximetry 98% on room air. LABORATORY DATA: WBC 5.7, hemoglobin and hematocrit 12.5 over 37.4, platelets 269. Chemistry: Sodium 145, potassium 3.7, chloride 109, bicarbonate 27, BUN 9, creatinine 0.73. Amylase and lipase negative. PHYSICAL EXAMINATION: GENERAL: The patient alert and oriented times two, in no acute distress. HEENT: Normocephalic, atraumatic. Pupils equal, round, and reactive. RESPIRATORY: Bilaterally clear to auscultation. No wheezes, rales, or rhonchi. CARDIAC: Regular rate and rhythm. Normal S1, S2. ABDOMEN: Soft. Right lower quadrant tenderness to palpation. Positive bowel sounds. EXTREMITIES: No clubbing, cyanosis or edema. ASSESSMENT AND PLAN: This is a 51-year-old male patient with underlying medical history of chronic obstructive pulmonary disease (COPD), depression, polysubstance abuse, history of methicillin-resistant Staphylococcus aureus (MRSA) of the right knee, chronic back pain and neck pain, anxiety, umbilical hernia, insomnia, recently discharged from inpatient mental health for substance abuse, admitted with questionable seizure and altered mental status, likely due to substance overdose. Emergency medical services (EMS) found undisclosed pills, also with box from right next to the patient. 1. Altered mental status, metabolic encephalopathy, possibly secondary to substance overdose. The patient was initially intubated, currently extubated. Withdrawal precaution. One-to-one sitter. Seizure precautions. Elopement precaution. Ativan as needed. Neurologic checks. Intravenous (IV) fluids. Banana bag was given. Diet as tolerated. 2. Abdominal pain, nausea, vomiting. Unknown etiology at this point. We will obtain CT scan. Followup electrolytes. Stool softener prescribed. 3. Questionable seizure, possible withdrawal seizure. Patient with a history of substance abuse. Seizure precaution. Neurologic checks. The patient is extubated, returning to baseline mental status. 4. Polysubstance abuse. Possible substance overdose. This patient was extubated. Will monitor the patient's mental status. Ativan intravenous (IV) as needed. Continue patient's home medication Suboxone, thiamine, multivitamin, folic acid. Initially given banana bag. 5. Chronic obstructive pulmonary disease (COPD). Nebulizer treatment. Advair. Currently at baseline. 6. Chronic pain. Withholding pain medication for now. 7. Depression. Consulted psychiatry for possible inpatient mental health admission. 8. Deep venous thrombosis (DVT) prophylaxis. Heparin subcutaneous. DISPOSITION PLANNING: Pending clinical improvement, CT scan of the abdomen, tolerating oral, and psychiatric consultation.
[2016-12-14] MEDS: LORazepam 2 MG/ML VIAL (J2060) IV PRN ×2 (17:03→21:28)
[2016-12-14] MEDS: LevoFLOXacin IV 500 MG in APPROPRIATE DILUENT 1 EA IV SCH (19:14)
--- NOTE | 2016-12-14 20:04 | IPN ---
DATE: 12/14/2016 Patient seen and examined. Continues to have intermittent vomiting. Still eating. Intermittent vomiting overnight. He is having bowel movements. Denies any chest pain, pressure, discomfort. Denies any shortness of breath. VITAL SIGNS: pulse 50, respirations 18, blood pressure 127/82, pulse oximetry 96% on room air. LABORATORY DATA: WBC 5.7, hemoglobin and hematocrit 12.6 over 36.9, platelets 313. Chemistry: Sodium 145, potassium 3.4, chloride 107, bicarbonate 31, BUN 6, creatinine 0.74. PHYSICAL EXAMINATION: GENERAL: Patient alert and oriented times three, in no acute distress. HEENT: Normocephalic, atraumatic. Pupils equal, round and reactive. RESPIRATORY: Bilaterally clear to auscultation. No wheeze, rales or rhonchi. CARDIAC: Regular rate and rhythm. Normal S1, S2. ABDOMEN: Soft, right lower quadrant tenderness to palpation. Positive bowel sounds. EXTREMITIES: No clubbing, cyanosis, or edema. ASSESSMENT AND PLAN: This is a 51-year-old male patient with underlying medical history of chronic obstructive pulmonary disease (COPD), depression, polysubstance abuse, history of methicillin-resistant Staphylococcus aureus (MRSA) of the right knee, chronic back pain, neck pain, anxiety, umbilical hernia, insomnia, recently discharged from inpatient mental health for substance abuse, admitted for questionable seizure and altered mental status, likely due to substance overdose. Emergency medical service (EMS) found undisclosed pills and also patient's Suboxone right next to the patient. Problems: 1. Altered mental status, metabolic encephalopathy. Possibly secondary to substance overdose. The patient was initially intubated, currently extubated, withdrawal precautions, one-to-one sitter, seizure precaution, elopement precaution, Ativan as needed, neurologic checks, IV fluids, banana bag was initially given. Currently given multivitamin and thiamine. Diet as tolerated. 2. Abdominal pain, nausea, vomiting. Abdominal pain has resolved. Unknown etiology at this point. CT scan appreciated. Possibly secondary to gastritis. Given Protonix as well as Carafate, empirically started on Levaquin as per surgery. Dr. Mariee has been consulted. 3. Questionable seizure. Possible withdrawal seizure. Patient with a history of substance abuse. Seizure precautions, neurologic checks. The patient was extubated. Returned to baseline mental status at this time. 4. Polysubstance abuse with possible substance overdose. The patient is a poor historian. Denies suicide, substance history. The patient was extubated. Will monitor the patient's mental status. Ativan as needed. Continue Suboxone, thiamine, multivitamin and folic acid. Initially given banana bag. 5. Chronic obstructive pulmonary disease (COPD). Nebulizer treatment, Advair. Currently at baseline. 6. Chronic pain. Withholding pain medication for now. 7. Depression. Consult to psychiatry for possible inpatient mental health admission, but as discussed with Dr. Mariee, General Surgeon, will need the patient to tolerate oral before sending the patient. 8. Deep vein thrombosis (DVT) prophylaxis. Heparin subcu. DISPOSITION PLANNING: Pending clinical improvement and transfer to psychiatry once the patient is tolerating oral and nausea and vomiting has resolved. MTDD
[2016-12-15] MEDS: LORazepam 2 MG/ML VIAL (J2060) IV PRN ×4 (01:12→17:20)
[2016-12-15] MEDS: LR 1,000 ML IV SCH (06:26)
[2016-12-15 07:02] LABS: MEAN CORPUSCULAR HEMOGLOBIN 33.5 pg (27.0-33.0); MEAN CORPUSCULAR HGB CONC 35.5 g/dl (32.0-36.5); MEAN CORPUSCULAR VOLUME 94.4 fl (80.0-96.0); RED CELL DISTRIBUTION WIDTH 13.9 % (11.5-14.5); WHITE BLOOD COUNT 5.3 K/mm3 (4.0-10.0)
[2016-12-15 07:26] LABS: ANION GAP 8 MEQ/L (8-16); BLOOD UREA NITROGEN 6 MG/DL (7-18); CALCIUM LEVEL 8.4 MG/DL (8.5-10.1); CARBON DIOXIDE LEVEL 27 MEQ/L (21-32); CHLORIDE LEVEL 108 MEQ/L (98-107); GLOMERULAR FILTRATION RATE > 60.0 (>60); GLUCOSE, FASTING 86 MG/DL (70-105); MAGNESIUM LEVEL 1.7 MG/DL (1.8-2.4); POTASSIUM SERUM 3.8 MEQ/L (3.5-5.1); SODIUM LEVEL 143 MEQ/L (136-145)
[2016-12-15] MEDS: ADVAIR DISKUS 250/50 INH PWD INH SCH (07:43)
[2016-12-15] MEDS: HEPARIN SOD (PORCINE) 5000 UNITS/ML VIAL SQ SCH (07:57)
[2016-12-15] MEDS: BUPRENORPHINE/NALOXONE 8-2MG SUBLINGUAL TABLET(SUBOXONE) SL SCH (07:57)
[2016-12-15] MEDS: SUCRALFATE 1 GM TAB PO SCH ×3 (07:58→17:20)
[2016-12-15] MEDS: SENOKOT S TAB PO SCH (07:58)
[2016-12-15] MEDS: THIAMINE 100 MG TAB PO SCH (07:58)
[2016-12-15] MEDS: FOLIC ACID 1 MG TAB PO SCH (07:58)
[2016-12-15] MEDS: MIRALAX *UNIT DOSE* 17GM PACKET PO SCH (07:59)
[2016-12-15] MEDS: MULTIVITAMINS/MINERALS THERAP 1 TAB PO SCH (07:59)
[2016-12-15] MEDS: PANTOPRAZOLE 40MG TAB (PROTONIX) PO SCH (07:59)
[2016-12-15 08:15] VITALS: BP 120/80
[2016-12-15] MEDS: FLUTICASONE PROP 0.05% NASAL SPRAY 16 GM (FLONASE) SCH (09:00)
[2016-12-15] MEDS ORDERED: MAG SULF 1GM/100ML (MAG RUN) 1 GM in APPROPRIATE DILUENT 1 EA IV ONE (13:00)
[2016-12-15] MEDS ORDERED: SENN1TAB2 PO (13:19)
[2016-12-15] MEDS ORDERED: SUCR1TA PO (13:19)
[2016-12-15] MEDS ORDERED: VITMTA PO (13:19)
[2016-12-15] MEDS ORDERED: PANT40TA2 PO (13:19)
[2016-12-15] MEDS ORDERED: THIA100TA PO (13:19)
[2016-12-15] MEDS ORDERED: FOLI1TAB2 PO (13:19)
[2016-12-15 14:00] VITALS: BP 132/81
--- NOTE | 2016-12-15 15:25 | REP ---
Clinical: Chest pain. Comparison: 12/11/2016. Findings: Mediastinum and cardiac silhouette are stable. Lung mcclain demonstrate chronic-appearing changes and improved aeration. No focal consolidation, effusion, or pneumothorax. Skeletal structures stable. Impression: Chronic-appearing changes. Improved aeration. No focal consolidation. Signed by Jean Donovan MD 12/15/2016 03:16 P
--- NOTE | 2016-12-15 22:14 | ECGEPIP ---
Stationary ECG Study [facility] Test Date: 2016-12-15 Pat Name: GAGANDEEP CLARKE Department: Room: [place] [address] Gender: M Reservations Clerk: JUSTIN : 1965 Requested By: REN CAMARGO Order Number: [id number] Reading MD: Marquez Merida Measurements Intervals [place] Rate: 58 P: 70 VA: 187 QRS: 43 QRSD: 110 T: 52 QT: 407 QTc: 402 Interpretive Statements SINUS BRADYCARDIA Otherwise within normal limits. Electronically Signed On 12-15-2016 22:13:58 EST by Marquez Merida
--- NOTE | 2016-12-16 08:04 | DSES ---
DATE OF ADMISSION: 12/10/2016 DATE OF DISCHARGE: 12/15/2016 PRIMARY CARE PROVIDER: Resident clinic. GENERAL SURGEON: Dr. Mariee PSYCHIATRIST: Dr. Rosenthal FINAL DIAGNOSES: 1. Altered mental status. 2. Metabolic encephalopathy secondary to substance overdose. 3. Questionable withdrawal seizure. 4. Abdominal pain, nausea and vomiting, likely due to gastritis. 5. Polysubstance abuse. 6. Chronic obstructive pulmonary disease (COPD) history. 7. Chronic pain. 8. Depression. HISTORY OF PRESENT ILLNESS: This is a 51-year-old male patient with a known history of polysubstance abuse, depression, COPD, chronic back pain, chronic neck pain, umbilical hernia, insomnia, history of methicillin resistant Staphylococcus aureus (MRSA), allergic rhinitis, who presented to the emergency room, brought in by emergency medical services (EMS) for altered mental status. The patient was nonverbal on examination initially, not able to provide any history. Obtained from the emergency room record. EMS found undisclosed pill bottles, and the patient's Suboxone next to the patient. The patient had a negative head CT scan in the emergency room. Subsequently, was given phenobarbital for agitation and subsequently was admitted. HOSPITAL COURSE: The patient became extremely agitated and with tonic clonic movement, as per nursing staff. Rapid response was called. Upon arrival, he patient had no gag reflex and was extremely agitated, unable to protect airway. Given Ativan 2 mg intravenously three times but with continued agitation, still unable to protect airway. Subsequently, the patient was intubated, taken to intensive care unit (ICU) on propofol drip for overnight. Spontaneous trial and was subsequently extubated with one to one observation, admitted to the floor. The patient reported nausea, vomiting, and abdominal pain. CT scan was done. The patient was started on Carafate and Protonix for gastritis. Surgery, Dr. Mariee, has bee consulted. The patient's clinical condition progressively improved. Vitamins have bee given. The patient's home medications were restarted. Psychiatry was consulted. Subsequently, the patient is transferred to inpatient mental health. Transfer was delayed given the patient's nausea, vomiting and abdominal pain, and also inpatient mental health lacked a bed. The patient is currently tolerating oral. In no acute distress. Ready to be transferred. VITAL SIGNS: Temperature 97.6, pulse 59, respirations 20, blood pressure 132/81, pulse oximetry 94% on room air. LABORATORY DATA: WBC 5.3, hemoglobin and hematocrit 12/33.9, platelets 319. Chemistry: Sodium 143, potassium 3.8, chloride 108, bicarbonate 27, BUN 6, creatinine 0.7, magnesium 1.7. DISCHARGE MEDICATIONS: Continue: - folic acid - multivitamin - thiamine - stool softener - Protonix - Carafate - albuterol - Flonase - Advair Psychiatric medications: - benzodiazepine as per psychiatry DISCHARGE INSTRUCTIONS: The patient is instructed to followup with primary care provider 7 days after discharge from inpatient mental health. Further care as per inpatient mental health.
== END 2016-12-15 17:25 | DRG 917 ==
LOC: M ED 18:38 → M ED INP 22:25 → M PCU 12-10 00:50 → M ICU 12-10 07:46 → OBSVTOIN 12-10 08:14 → M MS5PR 12-12 03:53
PROVIDERS: ADMIT Hospitalist; ATTEND Hospitalist
PROC: 0BH17EZ Insertion of Endotracheal Airway into Trachea, Via Natural or Artificial Opening (ICD-10-PCS; principal; 2016-12-10)
DX: T50.7X1A Poisoning by analeptics and opioid receptor antagonists, accidental (unintentional), initial encounter (principal); G93.41 Metabolic encephalopathy; F11.23 Opioid dependence with withdrawal; J44.9 Chronic obstructive pulmonary disease, unspecified; F32.9 Major depressive disorder, single episode, unspecified; R56.9 Unspecified convulsions; K29.70 Gastritis, unspecified, without bleeding; M54.5 Low back pain; M54.2 Cervicalgia; Z79.899 Other long term (current) drug therapy; Z88.8 Allergy status to other drugs, medicaments and biological substances; G47.00 Insomnia, unspecified

== ENCOUNTER 2016-12-15 17:30 | Inpatient (IN) | payer MEDICAID, MEDICARE ==
[~2016-12-15] VITALS: Ht 162.6 cm; Wt 76.1 kg
[~2016-12-15 17:30] MED LIST changes: +FOLI1TAB2 PO; +PANT40TA2 PO; +SENN1TAB2 PO; +SUCR1TA PO; +THIA100TA PO; +VITMTA PO
[2016-12-15] MEDS ORDERED: ALBUTEROL 90 MCG/ACT 8GM HFA INHALER INH PRN (18:15)
[2016-12-15] MEDS: MAALOX 30 ML SUSP *UDC PO PRN (18:55)
[2016-12-15] MEDS: NICOTINE 21MG/24HR 1 EA TRANSDERMAL TD SCH (18:59)
--- NOTE | 2016-12-15 19:02 | CR ---
DATE OF CONSULTATION: 12/15/2016 HISTORY OF PRESENT ILLNESS: 51-year-old male with history of polysubstance dependency with multiple psychiatric hospitalization who was admitted to the medical floor after he was found unresponsive. No information could be obtained. Patient was found with undisclosed pill bottles and Suboxone. A brain CT scan was done in the emergency department (ED) which was negative. Patient was intubated. Patient is now medically stable. Patient reports that he could not recall what happened prior to admission. Patient says "I have to stop" meaning using drugs. Patient was just discharged from our unit a few days ago in which he also was found with mental status change and overdose on benzodiazepines. Patient during our treatment at the mental health unit was minimizing any signs or symptoms of depression and was only focused on discharge saying that he was going to go to the outpatient treatment [facility]. He did not want to get into inpatient facility for chemical dependency. PAST PSYCHIATRIC HISTORY: As above. Patient has a long history of polysubstance dependency with notable admissions to our unit for this reason. Patient also has history of multiple treatments at rehabilitation and substance abuse facilities. PAST MEDICAL HISTORY: Patient has overdosed prior to admission. Has been diagnosed with chronic obstructive pulmonary disease, chronic pain, umbilical hernia, Methicillin-resistant Staphylococcus aureus (MRSA), history of spinal fusion in 2006. History of carpal tunnel release. History of kidney surgery as a child and also history of right ear surgery. FAMILY HISTORY: Patient reports his mother suffered from depression. SOCIAL HISTORY: Patient was born and raised in [place]. Patient reported normal childhood. Denied abuse of neglect. He was for 15 years. He has three children who live in [place]. He is unemployed. He is getting help from [facility] as far as living arrangements. SUBSTANCE ABUSE HISTORY: As above. Patient has a long history of polysubstance dependency and substance abuse treatment problems and rehabilitation. Patient reports has been on the Suboxone program as outpatient. MENTAL STATUS EXAMINATION: Patient dressed in hospital [facility]. Patient is repetitive, somewhat guarded. Speech is slow and monotone. Has poor eye contact. Mood is anxious and depressed. Affect is restricted. Patient is oriented to time, place, person and situation. Patient does not have auditory or visual hallucinations or delusions. Patient does not have paranoid, persecutory, somatic, grandiose or temple delusions. The patient denies suicidal or homicidal ideation but again he was found unresponsive and needed to be intubated before admission. Patient is minimizing the events that lead to his admission but again he admits he does not remember the events. Judgment and insight are poor. DIAGNOSIS: AXIS I: Specified depressive disorder, polysubstance dependency, substance induced mood disorder. AXIS II: Deferred. AXIS III: Status post overdose, chronic obstructive pulmonary disease, chronic back pain, umbilical hernia, history of methicillin resistance to Staphylococcus aureus and pneumonia. RECOMMENDATIONS: Patient is now medically stable. He was found unresponsive and had to be intubated. Patient overdosed will transfer him to the psychiatric unit for further treatment.
[2016-12-15] MEDS: SENNA 8.6 MG TAB (SENOKOT) PO SCH (20:14)
[2016-12-15] MEDS: PANTOPRAZOLE 40MG TAB (PROTONIX) PO SCH (20:15)
[2016-12-15] MEDS: BUPRENORPHINE/NALOXONE 8-2MG SUBLINGUAL TABLET(SUBOXONE) SL SCH (20:15)
[2016-12-15] MEDS: QUEtiapine FUMARATE 100 MG TAB PO SCH (20:15)
[2016-12-15] MEDS: SUCRALFATE 1 GM TAB PO SCH (20:17)
[2016-12-15] MEDS: ADVAIR DISKUS 250/50 INH PWD INH SCH (20:17)
[2016-12-15] MEDS: ONDANSETRON 4 MG ORAL DISINTEGRATING TAB (S0181) SL PRN (22:39)
[2016-12-15] MEDS: CEPACOL LOZENGE PO PRN (22:39)
[2016-12-16] MEDS: MAALOX 30 ML SUSP *UDC PO PRN ×2 (01:50→14:22)
[2016-12-16] MEDS: ACETAMINOPHEN TAB 650MG DOSE (2X325MG) PO PRN ×4 (01:50→20:50)
[2016-12-16 06:47] VITALS: BP 140/92
[2016-12-16] MEDS: SUCRALFATE 1 GM TAB PO SCH ×4 (06:50→20:47)
[2016-12-16] MEDS: PANTOPRAZOLE 40MG TAB (PROTONIX) PO SCH ×2 (08:43→20:47)
[2016-12-16] MEDS: SENNA 8.6 MG TAB (SENOKOT) PO SCH ×2 (08:43→20:47)
[2016-12-16] MEDS: BUPRENORPHINE/NALOXONE 8-2MG SUBLINGUAL TABLET(SUBOXONE) SL SCH (08:43)
[2016-12-16] MEDS: FOLIC ACID 1 MG TAB PO SCH (08:43)
[2016-12-16] MEDS: FLUTICASONE PROP 0.05% NASAL SPRAY 16 GM (FLONASE) SCH (08:43)
[2016-12-16] MEDS: MULTIVITAMINS/MINERALS THERAP 1 TAB PO SCH (08:43)
[2016-12-16] MEDS: THIAMINE 100 MG TAB PO SCH (08:43)
[2016-12-16] MEDS: ADVAIR DISKUS 250/50 INH PWD INH SCH ×2 (08:43→20:47)
[2016-12-16] MEDS: NICOTINE 21MG/24HR 1 EA TRANSDERMAL TD SCH (08:44)
[2016-12-16] MEDS: ONDANSETRON 4 MG ORAL DISINTEGRATING TAB (S0181) SL PRN ×2 (08:58→15:03)
[2016-12-16] MEDS: GABAPENTIN 300 MG CAP PO SCH ×3 (11:58→20:48)
[2016-12-16] MEDS ORDERED: CitaloPRAM (CeleXA) 10 MG TABLET PO ONE (12:00)
--- NOTE | 2016-12-16 14:39 | MHHPE ---
DATE OF ADMISSION: 12/15/2016 CHIEF COMPLAINT: "I don't remember what happened." HISTORY OF PRESENT ILLNESS: 51-year-old male with a history of polysubstance dependency with many admissions to our facility, who was admitted to the medical floor after he was found unresponsive. He was found with undisclosed pill bottles and Suboxone. The brain CT was negative in the emergency department. The patient had to be intubated and stabilized. The patient was transferred to our service after he was medically cleared. During the interview today, the patient is minimizing the events that lead to the admission. The patient is saying that he does not remember what happened but denies any overdose. The patient also denies that he has been using drugs. The patient reports that it must be something medical "maybe I had a seizure." The patient had the same response when he was admitted last time in our unit around 2 weeks ago. The patient is minimizing his symptoms and he is focused on discharge. The patient is denying feeling depressed; however, he became tearful, apologetic and stating, "I am sorry, doctor." Again, after that, he continued to deny any symptoms of depression and that he needs any help. The patient was asking to be discharged since he says, "I am doing much better now." However, this is his second admission to our unit, two episodes in less than 20 days in which he was found unresponsive and this last time had to be intubated and admitted to the intensive care unit (ICU). PAST MEDICAL HISTORY: As above, status post overdose/intubation. The patient has been diagnosed with chronic obstructive pulmonary disease (COPD), chronic pain, umbilical hernia, methicillin resistant Staphylococcus aureus (MRSA), history of spinal fusion in 2006, history of carpal tunnel syndrome, history of kidney surgery as a child, and history of right ear surgery. PAST PSYCHIATRIC HISTORY: As above, the patient has a long history of depression, polysubstance dependency with multiple admissions to our unit and multiple treatments in rehabilitation and substance abuse centers. FAMILY HISTORY: The reports that his mother suffered from depression. SOCIAL HISTORY: The patient was born and raised in [place]. Reports a completely normal childhood with no abuse or neglect. He was for 13 years. He has three children who live in [place]. He is unemployed and is getting help from [facility] for living arrangements. SUBSTANCE ABUSE HISTORY: As above, the patient has a long history of polysubstance dependency and substance abuse treatment problems. LABORATORY DATA: Not drawn on admission since the patient was discharged from the medical floor where he was medically worked up. MENTAL STATUS EXAMINATION: The patient is dressed in casual clothes. The patient is cooperative during the examination. The patient is somewhat guarded. His speech is soft and monotone. Has poor eye contact. Mood is anxious and depressed. Affect is restricted and appropriate with mood. The patient is oriented to time, place, person and situation. Concentration is fair. Memory is fair. There is no evidence of auditory or visual hallucinations. The patient does not have paranoid, persecutory, somatic, grandiose or uatsdin delusions. THe patient denies suicidal or homicidal ideation, but again he is focused on discharge issues and minimizing the events that lead to the admission. Judgment and insight are poor. DIAGNOSES: AXIS I: Unspecified depressive disorder. Substance induced mood disorder. Polysubstance dependency. AXIS II: Deferred. AXIS III: Status post overdose, chronic obstructive pulmonary disease (COPD), chronic back pain, umbilical hernia, MRSA, status post intubation. INITIAL TREATMENT PLAN: The patient was admitted on a DCS legal status. Complete history was obtained. With his permission, family will be contacted and database will be expanded. His medication regimen will be reviewed and changed accordingly. He will be provided with protective environment. He will be treated with individual, group and milieu therapies. He will also received supportive psychoeducation. Discharge planning will commence immediately. Length of stay will be between 5 and 7 days. Outpatient followup will be strongly recommended. The treatment plan will focus initially on depression, risk for suicide and substance abuse.
[2016-12-16 18:00] VITALS: BP 111/65
[2016-12-16] MEDS ORDERED: diphenhydrAMINE 50 MG CAP PO ONE (23:00)
[2016-12-16] MEDS: QUEtiapine FUMARATE 100 MG TAB PO SCH (23:06)
--- NOTE | 2016-12-17 04:01 | HPE ---
DATE OF ADMISSION: 12/15/2016 HISTORY OF PRESENT ILLNESS: Please refer to psychiatric history and evaluation for further details on this admission. This examination and history performed 12/15/2016, is intended for medical issues, which may need treatment, followup or consult on this 51-year-old male. SOCIAL HISTORY: He is . He states he was living with friends. Smokes one pack of cigarettes per day. States he does not drink alcohol. He has history of polysubstance abuse. He states he is currently on Suboxone. The patient was transferred down from the medical floor having been treated for an overdose. He had been intubated and he has since been extubated, stabilized and admitted to the inpatient mental health unit. ALLERGIES: KETOROLAC and TORADOL. PAST MEDICAL HISTORY: 1. History of methicillin-resistant Staphylococcus aureus right knee April 2009. 2. Chronic neck and back pain. 3. History of polysubstance abuse. 4. History of depression and anxiety. 5. History of umbilical hernia. 6. History of chronic obstructive pulmonary disease (COPD). 7. History of insomnia. PAST SURGICAL HISTORY: 1. Spinal fusion 2006 in [place]. 2. Carpal tunnel release. 3. Kidney surgery as a child. 4. Right ear surgery 06/05/2015. FAMILY HISTORY: Noncontributory. REVIEW OF SYSTEMS: No complaint of headache. No blurred or double vision. No fever. No chills. No tinnitus. Complains of some sore throat and hoarseness since he was intubated. No difficulty swallowing. No lightheadedness. No vertigo. Cardiovascular: No complaints of chest pain, shortness of breath, palpitations or edema. Respiratory: No chronic cough. No sputum production. No hemoptysis. No orthopnea. No wheeze. He was intubated and has since successfully been extubated. Gastrointestinal: Complains of slight nausea. No vomiting. No diarrhea. No hematochezia. No melena. No hematemesis. Genitourinary: No hematuria, dysuria or frequency. Musculoskeletal: Complains of chronic neck and back pain. No joint redness or swelling. No polyuria, polydipsia or polyphagia. No history of anemia. No history of seizure. Psychological: See psychiatric history of present illness (HPI). PHYSICAL EXAMINATION: 51-year-old cooperative male who looks much older than his stated years. Height 64 inches, body mass index (BMI) 22.7. Blood pressure 120/70, pulse 90, respirations 18. The patient is alert and oriented times three. Pupils equal and react to light. Extraocular muscles intact. Cornea and sclerae clear. Conjunctivae were normal. No facial asymmetry. Pharynx, tongue and gums pink and moist. Tongue is midline. Neck is supple without lymphadenopathy. No thyromegaly, no goiter. Carotids 2+ without bruit. Chest clear to auscultation without wheeze or retraction. Heart is regular. Abdomen is benign. Bowel sounds positive. Genitourinary/rectal: Not done. Extremities: Show full range of motion. No cyanosis, clubbing or edema. Peripheral pulses equal and palpable bilaterally. Skin is warm and dry. IMPRESSION/PLAN: 1. Psychiatric plan per psychiatry. 2. History of polysubstance abuse. States currently on Suboxone. 3. History of chronic obstructive pulmonary disease (COPD). Currently clinically stable. 4. Complaints of dry throat. Will use Cepacol lozenges. 5. Smoking cessation. Nicotine patch available. No acute medical issues.
[2016-12-17 06:50] VITALS: BP 107/64
[2016-12-17] MEDS: SUCRALFATE 1 GM TAB PO SCH ×4 (06:53→22:56)
[2016-12-17] MEDS: ADVAIR DISKUS 250/50 INH PWD INH SCH ×2 (09:09→22:56)
[2016-12-17] MEDS: ONDANSETRON 4 MG ORAL DISINTEGRATING TAB (S0181) SL PRN (09:09)
[2016-12-17] MEDS: SENNA 8.6 MG TAB (SENOKOT) PO SCH ×2 (09:09→22:56)
[2016-12-17] MEDS: CitaloPRAM (CeleXA) 20 MG TAB PO SCH (09:09)
[2016-12-17] MEDS: FOLIC ACID 1 MG TAB PO SCH (09:09)
[2016-12-17] MEDS: FLUTICASONE PROP 0.05% NASAL SPRAY 16 GM (FLONASE) SCH (09:09)
[2016-12-17] MEDS: NICOTINE 21MG/24HR 1 EA TRANSDERMAL TD SCH (09:10)
[2016-12-17] MEDS: ACETAMINOPHEN TAB 650MG DOSE (2X325MG) PO PRN ×3 (09:10→22:59)
[2016-12-17] MEDS: MULTIVITAMINS/MINERALS THERAP 1 TAB PO SCH (09:10)
[2016-12-17] MEDS: GABAPENTIN 300 MG CAP PO SCH ×3 (09:10→20:11)
[2016-12-17] MEDS: PANTOPRAZOLE 40MG TAB (PROTONIX) PO SCH ×2 (09:10→22:56)
[2016-12-17] MEDS: THIAMINE 100 MG TAB PO SCH (09:10)
[2016-12-17] MEDS: cloNIDine 0.1 MG TAB PO PRN ×2 (12:56→19:13)
--- NOTE | 2016-12-17 16:41 | IPN ---
DATE: 12/17/2016 51-year-old male with history of depression and polysubstance dependency transferred from the medical floor after he was stabilized. The patient was admitted after he was found unresponsive. He needed to be intubated and admitted to the ICU for stabilization. MEDICATIONS: Celexa 20 mg by mouth every a.m., folic acid, multivitamins, thiamine, as per detoxification protocol. Neurontin 600 mg by mouth three times a day. Seroquel 100 mg by mouth nightly. SUBJECTIVE: "I need my Suboxone". OBJECTIVE: The patient reports that he has been on the Suboxone program as outpatient in [place]. Yesterday I checked [facility] and I could not find any record of the patient having prescribed any controlled substance including Suboxone. I told the patient and he says that his must be a mistake since he has been taking the medication through the program. Our mission planner is going to contact them to clarify the above. In the meantime the patient is reporting readiness for discharge. He continues to minimize the events that led to his admission. We discussed with the patient, the fact that this is his second admission to the medical floor where he has been found unresponsive and this time he needed to be intubated and be admitted to the ICU, but the patient does not have insight. The patient has poor judgment and is trying to convince me that he is ready to be discharged. The patient continues with soft monotone speech, psychomotor retardation, restricted facial expression. There is no evidence of psychotic symptoms. No auditory or visual hallucinations or delusions. MENTAL STATUS EXAM: The patient is dressed in [facility]. The patient is cooperative during the examination, poor eye contact. Speech is soft and monotone. Mood is depressed and anxious. Affect is restricted. No evidence of delusions or hallucinations. Memory is fair. The patient is fully oriented. Associations are intact. Thinking is logical. Thought content is appropriate. The patient is denying suicidal or homicidal ideation, but again he is only focused on discharge and is not a reliable historian. Insight and judgment is poor. ASSESSMENT: 1. Depression. 2. Polysubstance dependency. 3. Status post overdose. PLAN: 1. Will start a low dosage of methadone 2.5 mg by mouth twice a day and taper in the next couple of days. 2. Celexa 20 mg by mouth every a.m. 3. Clonidine 0.1 mg by mouth every 6 hours as needed for opiate withdrawal. 4. Folic acid, multivitamins and thiamine as per detox protocol. 5. Neurontin 600 mg by mouth three times a day. 6. Seroquel 100 mg by mouth nightly.
[2016-12-17 18:00] VITALS: BP 117/74
[2016-12-17] MEDS: MAALOX 30 ML SUSP *UDC PO PRN (20:11)
[2016-12-17] MEDS: METHADONE 5 MG TAB (S0109) PO SCH (20:15)
[2016-12-17] MEDS: QUEtiapine FUMARATE 100 MG TAB PO SCH (22:56)
[2016-12-18] MEDS: SUCRALFATE 1 GM TAB PO SCH ×4 (06:46→20:45)
[2016-12-18 06:50] VITALS: BP 121/61
[2016-12-18] MEDS: NICOTINE 21MG/24HR 1 EA TRANSDERMAL TD SCH (08:37)
[2016-12-18] MEDS: ADVAIR DISKUS 250/50 INH PWD INH SCH ×2 (08:37→20:45)
[2016-12-18] MEDS: GABAPENTIN 300 MG CAP PO SCH ×3 (08:38→20:45)
[2016-12-18] MEDS: SENNA 8.6 MG TAB (SENOKOT) PO SCH ×2 (08:38→20:46)
[2016-12-18] MEDS: FLUTICASONE PROP 0.05% NASAL SPRAY 16 GM (FLONASE) SCH (08:38)
[2016-12-18] MEDS: FOLIC ACID 1 MG TAB PO SCH (08:38)
[2016-12-18] MEDS: METHADONE 5 MG TAB (S0109) PO SCH ×2 (08:38→20:46)
[2016-12-18] MEDS: THIAMINE 100 MG TAB PO SCH (08:39)
[2016-12-18] MEDS: ACETAMINOPHEN TAB 650MG DOSE (2X325MG) PO PRN ×3 (08:39→23:11)
[2016-12-18] MEDS: CitaloPRAM (CeleXA) 20 MG TAB PO SCH (08:39)
[2016-12-18] MEDS: MULTIVITAMINS/MINERALS THERAP 1 TAB PO SCH (08:39)
[2016-12-18] MEDS: PANTOPRAZOLE 40MG TAB (PROTONIX) PO SCH ×2 (08:49→20:45)
[2016-12-18] MEDS: cloNIDine 0.1 MG TAB PO PRN ×3 (08:49→23:12)
[2016-12-18] MEDS: NICOTINE POLACRILEX 2 MG GUM PO PRN ×3 (12:28→18:58)
[2016-12-18] MEDS: CEPACOL LOZENGE PO PRN ×4 (12:28→21:35)
--- NOTE | 2016-12-18 17:17 | IPN ---
DATE: 12/18/2016 51-year-old male with a history of depression and polysubstance dependency, transferred from the medical floor after he was stabilized. The patient was found unresponsive. He needed to be intubated and admitted to intensive care unit (ICU) for stabilization. MEDICATIONS: - Celexa 20 mg by mouth in the morning - folic acid - multivitamin - thiamine for detox protocol - Neurontin 600 mg by mouth three times a day - Seroquel 100 mg by mouth at night - methadone 2.5 mg by mouth twice a day SUBJECTIVE: "When can I go home?" OBJECTIVE: The patient reports feeling anxious and also reports symptoms of withdrawal from opiates and benzodiazepine. The patient admitted that he was buying Klonopin from the street. The patient continues to say that he was on a Suboxone program, but [facility] did not show that. The patient has very little insight into his chemical dependency illness and how it needs to be treated. The patient is mostly focused on discharge. No evidence of psychotic symptoms. No auditory or visual hallucinations or delusions. MENTAL STATUS EXAMINATION: The patient is dressed in [facility]. The patient is cooperative during the interview and has fair eye contact. His speech is soft and monotone. Mood is depressed and anxious. Affect is restricted. No evidence of delusions or hallucinations. Memory is fair. The patient is fully oriented. Associations are intact. Thinking is logical. Thought content is appropriate. The patient is denying suicidal or homicidal ideation but he is focused on discharge issues and minimizing all the symptoms. Insight and judgment are poor. ASSESSMENT: 1. Depression. 2. Polysubstance dependency. 3. Status post overdose. PLAN: 1. Continue with methadone 2.5 mg by mouth twice a day. 2. Celexa 20 mg by mouth in the morning. 3. Clonidine 0.1 mg by mouth every 6 hours as needed for opiate withdrawal. Folic acid, multivitamin, and thiamine as per detox protocol. 4. Neurontin 600 mg by mouth three times a day. 5. Seroquel 100 mg by mouth at night. 6. Librium 10 mg by mouth three times a day.
[2016-12-18 18:00] VITALS: BP 107/72
[2016-12-18] MEDS: MOM 30ML SUSPENSION UDC PO PRN (22:36)
[2016-12-18] MEDS: QUEtiapine FUMARATE 100 MG TAB PO SCH (23:12)
[2016-12-19 06:32] VITALS: BP 124/57
[2016-12-19] MEDS: SUCRALFATE 1 GM TAB PO SCH ×4 (06:41→21:48)
[2016-12-19] MEDS: GABAPENTIN 300 MG CAP PO SCH ×3 (09:02→21:45)
[2016-12-19] MEDS: ADVAIR DISKUS 250/50 INH PWD INH SCH ×2 (09:02→21:45)
[2016-12-19] MEDS: FLUTICASONE PROP 0.05% NASAL SPRAY 16 GM (FLONASE) SCH (09:02)
[2016-12-19] MEDS: THIAMINE 100 MG TAB PO SCH (09:03)
[2016-12-19] MEDS: SENNA 8.6 MG TAB (SENOKOT) PO SCH ×2 (09:03→21:45)
[2016-12-19] MEDS: MULTIVITAMINS/MINERALS THERAP 1 TAB PO SCH (09:03)
[2016-12-19] MEDS: CEPACOL LOZENGE PO PRN ×4 (09:03→21:51)
[2016-12-19] MEDS: PANTOPRAZOLE 40MG TAB (PROTONIX) PO SCH ×2 (09:03→21:48)
[2016-12-19] MEDS: FOLIC ACID 1 MG TAB PO SCH (09:03)
[2016-12-19] MEDS: NICOTINE POLACRILEX 2 MG GUM PO PRN ×4 (09:03→22:05)
[2016-12-19] MEDS: CitaloPRAM (CeleXA) 20 MG TAB PO SCH (09:03)
[2016-12-19] MEDS: cloNIDine 0.1 MG TAB PO PRN ×3 (09:04→23:35)
[2016-12-19] MEDS: ACETAMINOPHEN TAB 650MG DOSE (2X325MG) PO PRN ×2 (15:15→23:34)
[2016-12-19] MEDS: MAALOX 30 ML SUSP *UDC PO PRN ×2 (16:19→23:34)
[2016-12-19 18:32] VITALS: BP 116/76
--- NOTE | 2016-12-19 20:21 | IPNPDOC ---
[facility] Progress Note Progress Note DATE OF SERVICE: 12/19/16 Subjective: Patient is anxious in manner, but cooperative with interview. He displays drug seeking behaviors. Patient denies SI/HI and AH/VH. Patient reports fair sleep and appetite. He reports some abd pain. He has been ordered an abd.film. Of note, patient has made multiple somatic complaints since admission. Patient reports med compliance and denies med s/e's. Objective: VITALS: wnl MENTAL STATUS EXAMINATION: Patient looks stated age, in NAD, anxious, drug seeking behavior, asking new provider for scheduled dose of Methadone but has been explained to patient he is on a Methadone taper. calm and cooperative. Has good eye contact. Speech RRR. Mood is euthymic Affect is full. No delusions or hallucinations noted. Memory is fair. The patient is fully oriented. Associations are intact. Thinking is linear and GD. Thought content is somatic and drug seeking. Patient denies suicidal or homicidal ideation during the interview. Insight and judgment are poor. ASSESSMENT: 1. MDD. 2. Opioid use d/o, severe. 3. Alcohol use d/o, severe. PLAN: 1. Continue close observation. 2. Continue current psychotropic med regimen. 3. Continue detox protocol. Continue Librium and Methadone taper. 4. Continue vitamins. 5. Continue with individual and group therapy. Time spent: 30 minutes Vital Signs Vital Signs Date Time Temp Pulse Resp B/P Pulse Ox O2 Delivery O2 Flow Rate FiO2 12/19/16 18:32 97.1 71 16 116/76 12/15/16 18:43 Room Air Current Medications Current Medications Acetaminophen (Tylenol Tab) 650 mg Q6HP PRN PO HEADACHE or DISCOMFORT Last administered on 12/19/16 15:15; Start 12/15/16 at 18:15; Stop 01/14/17 at 18:14 Al Hydrox/Mg Hydrox/Simethicone (Mylanta) 30 ml Q4HP PRN PO HEARTBURN/ INDIGESTION Last administered on 12/19/16 16:19; Start 12/15/16 at 18:15; Stop 01/14/17 at 18:14 Albuterol Sulfate (Proventil, Ventolin Hfa) 2 puff Q4HP PRN INH SHORTNESS OF BREATH; Start 12/15/16 at 18:15; Stop 01/14/17 at 18:14 Buprenorphine/ Naloxone (Suboxone 8/2mg) 1 tab BID SL Last administered on 12/16 08:43; Start 12/15/16 at 21:00; Stop 12/16/16 at 11:43; Status DC Cetylpyridinium Chloride (Cepacol) 1 ibeth Q2HP PRN PO COUGH Last administered on 12/19/16 18:16; Start 12/15/16 at 22:00; Stop 01/14/17 at 21:59 Chlordiazepoxide (Librium) 10 mg TID PO Last administered on 12/19/16 15:13; Start 12/18/16 at 09:00; Stop 12/25/16 at 08:59 Citalopram Hydrobromide (CeleXA) 20 mg QAM PO Last administered on 12/19/16 09 :03; Start 12/17/16 at 09:00; Stop 01/16/17 at 08:59 Clonidine HCl (Catapres) 0.1 mg Q6H PRN PO WITHDRAWAL SYMPTOMS Last administered on 12/19/16 18:16; Start 12/16/16 at 11:45; Stop 01/15/17 at 11:44 Fluticasone Propionate (Flonase 0.05% Nasal [place]) 2 spray DAILY NA Last administered on 12/19/16 09:02; Start 12/16/16 at 09:00; Stop 01/15/17 at 08:59 Folic Acid (Folic Acid) 1 mg DAILY PO Last administered on 12/19/16 09:03; Start 12/16/16 at 09:00; Stop 01/15/17 at 08:59 Gabapentin (Neurontin) 600 mg TID PO Last administered on 12/19/16 15:14; Start 12/16/16 at 09:00; Stop 01/15/17 at 08:59 Magnesium Hydroxide (Milk Of Magnesia) 30 ml DAILYPRN PRN PO CONSTIPATION Last administered on 12/18/16 22:36; Start 12/15/16 at 18:15; Stop 01/14/17 at 18:14 Methadone HCl (Dolophine) 2.5 mg BID PO Last administered on 12/18/16 08:38; Start 12/17/16 at 21:00; Stop 12/18/16 at 16:38; Status DC Methadone HCl (Dolophine) 2.5 mg QHS PO Last administered on 12/18/16 20:46; Start 12/18/16 at 21:00; Stop 12/20/16 at 22:00 Multivitamins (Theragram-M) 1 tab DAILY PO Last administered on 12/19/16 09:03 ; Start 12/16/16 at 09:00; Stop 01/15/17 at 08:59 Nicotine (Nicoderm Cq 21mg) 1 patch DAILY TD Last administered on 12/18/16 08: 37; Start 12/15/16 at 09:00; Stop 12/18/16 at 10:07; Status DC Nicotine (Nicorette) 2 mg Q2HP PRN PO NICOTINE WITHDRAWAL Last administered on 12/19/16 18:16; Start 12/18/16 at 10:15; Stop 01/17/17 at 10:14 Ondansetron HCl (Zofran Odt) 4 mg Q6HP PRN SL NAUSEA OR VOMITING Last administered on 12/17/16 09:09; Start 12/15/16 at 22:15; Stop 01/14/17 at 22:14 Pantoprazole Sodium (Protonix) 40 mg BID PO Last administered on 12/19/16 09: 03; Start 12/15/16 at 21:00; Stop 01/14/17 at 20:59 Quetiapine Fumarate (SEROquel) 100 mg QHS PO Last administered on 12/18/16 23: 12; Start 12/15/16 at 21:00; Stop 01/14/17 at 20:59 Salmeterol Xinafoate/ Fluticasone (Advair Diskus 250/50) 1 puff BID INH Last administered on 12/19/16 09:02; Start 12/15/16 at 21:00; Stop 01/14/17 at 20:59 Senna (Senokot) 1 tab BID PO Last administered on 12/19/16 09:03; Start at 21:00; Stop 01/14/17 at 20:59 Sucralfate (Carafate) 1 gm ACHS PO Last administered on 12/19/16 17:35; Start 12/15/16 at 21:00; Stop 01/14/17 at 20:59 Thiamine HCl (Thiamine HCl) 100 mg DAILY PO Last administered on 12/19/16t 09: 03; Start 12/16/16 at 09:00; Stop 01/15/17 at 08:59 Allergies Coded Allergies: Ketorolac Tromethamine (Verified Allergy, Intermediate, HIVES, 12/23/16) PATIENT STATES HE TOLERATES IBUPROFEN AND NAPROXEN -RN HAS DOCUMENTED NO PROBLEM Tramadol (Verified Allergy, Intermediate, HIVES, 04/07/13) JATINDER CRANE MD Dec 19, 2016 20:21 Tramadol (Verified Allergy, Intermediate, HIVES, 04/07/13) JATINDER CRANE MD Dec 19, 2016 20:21
[2016-12-19] MEDS: METHADONE 5 MG TAB (S0109) PO SCH (21:48)
[2016-12-19] MEDS: QUEtiapine FUMARATE 100 MG TAB PO SCH (23:36)
[2016-12-20] MEDS: CEPACOL LOZENGE PO PRN ×6 (00:02→22:43)
[2016-12-20 06:40] VITALS: BP 129/73
[2016-12-20] MEDS: SUCRALFATE 1 GM TAB PO SCH ×4 (06:52→20:25)
--- NOTE | 2016-12-20 07:18 | REP ---
Clinical: Abdominal pain. Constipation. Technique: Two supine views of the abdomen and pelvis. Findings: Moderate fecal stasis and presumed constipation is appreciated. No evidence for bowel obstruction or obvious perforation. No organomegaly. No abnormal calcifications. Skeletal structures intact. Impression: Moderate fecal stasis and presumed constipation. No bowel obstruction. Signed by Jean Donovan MD 12/20/2016 07:09 A
[2016-12-20] MEDS: SENNA 8.6 MG TAB (SENOKOT) PO SCH ×2 (08:58→20:25)
[2016-12-20] MEDS: CitaloPRAM (CeleXA) 20 MG TAB PO SCH (08:58)
[2016-12-20] MEDS: FLUTICASONE PROP 0.05% NASAL SPRAY 16 GM (FLONASE) SCH (08:58)
[2016-12-20] MEDS: PANTOPRAZOLE 40MG TAB (PROTONIX) PO SCH ×2 (08:58→20:25)
[2016-12-20] MEDS: THIAMINE 100 MG TAB PO SCH (08:58)
[2016-12-20] MEDS: ADVAIR DISKUS 250/50 INH PWD INH SCH ×2 (08:58→20:25)
[2016-12-20] MEDS: MULTIVITAMINS/MINERALS THERAP 1 TAB PO SCH (08:58)
[2016-12-20] MEDS: FOLIC ACID 1 MG TAB PO SCH (08:58)
[2016-12-20] MEDS: GABAPENTIN 300 MG CAP PO SCH ×3 (08:58→20:25)
[2016-12-20] MEDS: ACETAMINOPHEN TAB 650MG DOSE (2X325MG) PO PRN ×3 (09:03→23:04)
[2016-12-20] MEDS: ONDANSETRON 4 MG ORAL DISINTEGRATING TAB (S0181) SL PRN ×2 (09:03→18:59)
[2016-12-20] MEDS: NICOTINE POLACRILEX 2 MG GUM PO PRN ×5 (09:05→21:47)
[2016-12-20] MEDS ORDERED: MAGNESIUM CITRATE 300 ML BTL PO ONE (10:00)
[2016-12-20] MEDS: MAALOX 30 ML SUSP *UDC PO PRN (13:53)
[2016-12-20] MEDS: cloNIDine 0.1 MG TAB PO PRN ×2 (13:54→21:45)
--- NOTE | 2016-12-20 14:21 | REP ---
Clinical: Upper extremity pain. Technique: Delatorre scale and color Doppler evaluation using linear high frequency transducer. Findings: Ultrasound examination of the right and left upper extremity deep venous structures including the jugular, subclavian, axillary, brachial, cephalic and basilic veins demonstrates normal compressibility flow and wave patterns in response to respiration and augmentation. There is no evidence for deep venous thrombosis. Evaluation of the point of maximal tenderness in the left antecubital fossa demonstrates superficial thrombus in the ulnar vein distal to the site of IV catheter. Impression: No evidence for deep venous thrombosis. Superficial thrombus in the left ulnar vein distal to the site of IV catheter placement. Signed by Jean Donovan MD 12/20/2016 02:12 P
[2016-12-20 18:00] VITALS: BP 99/59
[2016-12-20] MEDS ORDERED: NAPROXEN 375 MG TAB PO ONE (19:00)
[2016-12-20] MEDS: METHADONE 5 MG TAB (S0109) PO SCH (20:27)
[2016-12-20] MEDS: MOM 30ML SUSPENSION UDC PO PRN (21:45)
[2016-12-20] MEDS: QUEtiapine FUMARATE 100 MG TAB PO SCH (22:43)
[2016-12-21] MEDS: SUCRALFATE 1 GM TAB PO SCH ×4 (06:42→20:10)
[2016-12-21 06:48] VITALS: BP 119/62
[2016-12-21] MEDS: PANTOPRAZOLE 40MG TAB (PROTONIX) PO SCH ×2 (08:44→20:10)
[2016-12-21] MEDS: FOLIC ACID 1 MG TAB PO SCH (08:44)
[2016-12-21] MEDS: CitaloPRAM (CeleXA) 20 MG TAB PO SCH (08:44)
[2016-12-21] MEDS: FLUTICASONE PROP 0.05% NASAL SPRAY 16 GM (FLONASE) SCH (08:44)
[2016-12-21] MEDS: GABAPENTIN 300 MG CAP PO SCH ×3 (08:44→20:11)
[2016-12-21] MEDS: THIAMINE 100 MG TAB PO SCH (08:45)
[2016-12-21] MEDS: ADVAIR DISKUS 250/50 INH PWD INH SCH ×2 (08:45→20:10)
[2016-12-21] MEDS: MULTIVITAMINS/MINERALS THERAP 1 TAB PO SCH (08:45)
[2016-12-21] MEDS: ACETAMINOPHEN TAB 650MG DOSE (2X325MG) PO PRN ×3 (08:46→23:13)
[2016-12-21] MEDS: SENNA 8.6 MG TAB (SENOKOT) PO SCH ×2 (08:48→20:10)
[2016-12-21] MEDS: NICOTINE POLACRILEX 2 MG GUM PO PRN ×4 (08:52→20:15)
[2016-12-21] MEDS: ONDANSETRON 4 MG ORAL DISINTEGRATING TAB (S0181) SL PRN ×2 (08:52→20:15)
[2016-12-21] MEDS: CEPACOL LOZENGE PO PRN ×5 (08:52→23:12)
[2016-12-21] MEDS: NAPROXEN 375 MG TAB PO SCH ×2 (11:59→20:11)
[2016-12-21 12:03] VITALS: BP 110/68
[2016-12-21] MEDS: cloNIDine 0.1 MG TAB PO PRN (12:03)
[2016-12-21] MEDS: MAALOX 30 ML SUSP *UDC PO PRN ×2 (13:24→22:32)
--- NOTE | 2016-12-21 15:07 | IPN ---
DATE: 12/21/2016 A 51-year-old male with a history of depression and polysubstance dependency, transferred from the medical floor after stabilization. Patient had to be intubated and admitted to intensive care. MEDICATIONS: - Celexa 20 mg by mouth every morning - Folic acid, multivitamin, and thiamine for detoxification protocol - Neurontin 600 mg by mouth three times a day - Seroquel 100 mg by mouth at bedtime SUBJECTIVE: "I need to go home." OBJECTIVE: Patient reports improvement. Denies feelings of depression. Denies suicidal or homicidal ideation. There is no evidence of auditory or visual hallucinations or delusions. Patient is minimizing and rationalizing the use of drugs. Patient reports that he has not an apartment, and he can continue his treatment as outpatient. At this moment, the patient does not meet criteria for involuntary hospitalization. MENTAL STATUS EXAMINATION: Patient is dressed in [facility]. Patient has good eye contact. Is cooperative. Speech is normal in rate, volume. Articulation is quiet and is spontaneous. Mood is euthymic. Affect is congruent with mood. No delusions or hallucinations. Short-term and long-term memory are fair. Patient is fully oriented. Associations are intact. Thinking is logical. Thought content is appropriate. Patient is denying suicidal or homicidal ideation. Insight and judgment are limited as far as his chemical dependency. ASSESSMENT: 1. Depression. 2. Polysubstance dependency. 3. Status post overdose. PLAN: 1. Continue Celexa 20 mg by mouth every morning. 2. Continue folic acid, multivitamin, and thiamine as per detoxification protocol. 3. Continue Neurontin 600 mg by mouth three times a day. 4. Continue Seroquel 100 mg by mouth at bedtime. 5. Will discharge tomorrow if continues improving.
[2016-12-21 18:00] VITALS: BP 118/78
[2016-12-21] MEDS: MOM 30ML SUSPENSION UDC PO PRN (18:58)
[2016-12-21] MEDS ORDERED: MAGNESIUM CITRATE 300 ML BTL PO ONE (20:00)
[2016-12-21] MEDS: QUEtiapine FUMARATE 100 MG TAB PO SCH (22:30)
[2016-12-22 06:51] VITALS: BP 125/85
[2016-12-22] MEDS: SUCRALFATE 1 GM TAB PO SCH ×2 (07:21→11:17)
[2016-12-22] MEDS ORDERED: NICO2GUM62 PO (08:10)
[2016-12-22] MEDS: SENNA 8.6 MG TAB (SENOKOT) PO SCH (08:18)
[2016-12-22] MEDS: FLUTICASONE PROP 0.05% NASAL SPRAY 16 GM (FLONASE) SCH (08:18)
[2016-12-22] MEDS: ADVAIR DISKUS 250/50 INH PWD INH SCH (08:18)
[2016-12-22] MEDS: THIAMINE 100 MG TAB PO SCH (08:19)
[2016-12-22] MEDS: CitaloPRAM (CeleXA) 20 MG TAB PO SCH (08:19)
[2016-12-22] MEDS: NAPROXEN 375 MG TAB PO SCH (08:19)
[2016-12-22] MEDS: PANTOPRAZOLE 40MG TAB (PROTONIX) PO SCH (08:19)
[2016-12-22] MEDS: MULTIVITAMINS/MINERALS THERAP 1 TAB PO SCH (08:19)
[2016-12-22] MEDS: GABAPENTIN 300 MG CAP PO SCH ×2 (08:19→15:06)
[2016-12-22] MEDS: FOLIC ACID 1 MG TAB PO SCH (08:19)
[2016-12-22] MEDS: NICOTINE POLACRILEX 2 MG GUM PO PRN ×2 (08:23→14:51)
[2016-12-22] MEDS: CEPACOL LOZENGE PO PRN ×2 (08:23→14:50)
[2016-12-22] MEDS ORDERED: CELE20TA PO (11:27)
[2016-12-22] MEDS ORDERED: QUET1TAB8 PO (11:27)
[2016-12-22] MEDS ORDERED: GABA300C3 PO (11:27)
[2016-12-22 12:26] LABS: BASO % 0.5 % (0.0-1.0); EOS # 0.2 K/mm3 (0.0-0.50); EOS % 2.6 % (0.0-3.0); LARGE UNSTAINED CELL # 0.1 K/mm3 (0.0-0.4); LARGE UNSTAINED CELL % 2.1 % (0.0-4.0); LYMPH # 1.8 K/mm3 (1.5-4.5); LYMPH % 25.2 % (24.0-44.0); MEAN CORPUSCULAR HEMOGLOBIN 32.8 pg (27.0-33.0); MEAN CORPUSCULAR HGB CONC 33.6 g/dl (32.0-36.5); MEAN CORPUSCULAR VOLUME 97.6 fl (80.0-96.0); MONO # 0.5 K/mm3 (0.0-0.8); MONO % 7.9 % (0.0-5.0); NEUTROPHILS % 61.7 % (36.0-66.0); PLATELET COUNT, AUTOMATED 416 k/mm3 (150-450); RED CELL DISTRIBUTION WIDTH 14.2 % (11.5-14.5); WHITE BLOOD COUNT 6.4 K/mm3 (4.0-10.0)
[2016-12-22 12:49] LABS: ALBUMIN 3.6 GM/DL (3.2-5.2); ALBUMIN/GLOBULIN RATIO 1.33 (1.00-1.93); ALKALINE PHOSPHATASE 73 U/L (45-117); ALT/SGPT 46 U/L (12-78); ANION GAP 7 MEQ/L (8-16); AST/SGOT 30 U/L (15-37); BILIRUBIN,TOTAL 0.2 MG/DL (0.2-1.0); BLOOD UREA NITROGEN 16 MG/DL (7-18); CARBON DIOXIDE LEVEL 29 MEQ/L (21-32); CHLORIDE LEVEL 107 MEQ/L (98-107); CREATININE FOR GFR 0.85 MG/DL (0.70-1.30); GLOMERULAR FILTRATION RATE > 60.0 (>60); GLUCOSE, FASTING 83 MG/DL (70-105); SODIUM LEVEL 143 MEQ/L (136-145); TOTAL PROTEIN 6.3 GM/DL (6.4-8.2)
[2016-12-22] MEDS: MAALOX 30 ML SUSP *UDC PO PRN (14:49)
[2016-12-22] MEDS: ACETAMINOPHEN TAB 650MG DOSE (2X325MG) PO PRN (14:49)
[2016-12-22] MEDS ORDERED: NICO2GUM8 PO (15:47)
[2016-12-22] MEDS ORDERED: NAPR375T2 PO (15:58)
--- NOTE | 2016-12-22 16:11 | REP ---
Abdominal series: Three views: History: Constipation. Comparison study: 12/19/2016. Findings: Upright chest radiograph is compared with the 12/15/2016 study. There is a granulomatous calcification again noted in the right mid lung zone. There is no evidence of infiltrate or free subdiaphragmatic air. Heart size is normal. Supine and erect views of the abdomen demonstrate an unremarkable bowel gas pattern. There is some stool in the right colon. No significant colonic stool burden is seen. No small bowel dilation is observed. No significant air fluid level is noted. Impression: Unremarkable abdominal series. Signed by Alvaro Sharp MD 12/22/2016 04:46 P
--- NOTE | 2016-12-23 08:37 | MHDS ---
DATE OF ADMISSION: 12/15/2016 DATE OF DISCHARGE: 12/22/2016 HISTORY OF PRESENT ILLNESS: 51-year-old male with history of polysubstance dependency with many admissions to our facility. Patient was admitted to the medical floor for stabilization. Patient has to be admitted in intensive care unit (ICU) and was intubated. Brain CT was negative in the emergency department. After transfer to our unit and during the first interview, patient continued to minimize the events that lead to his admission. Patient stated that he does not remember what happened. He denied any overdose. He also denied that he has been using drugs. Patient was stating that "must be something medical, maybe I had a seizure". Patient has the same response when he was admitted last time in our unit around 2 weeks ago. Patient was focused on discharge and was asking me to let him go the same day that he was admitted to our unit. Patient was denying feeling depressed. At one point, he became tearful and apologetic stating "I am sorry doctor", but after that, he continued to deny the symptoms of depression or the need for help. As stated above, patient was discharged a few days from our unit. Patient was reporting "I am doing much better now". However, this is the second time that the patient has been admitted to the medical floor and needed stabilization and the second time patient was intubated and admitted to the intensive care unit (ICU). Labs at admission were not drawn since patient was medically worked up at medical floor. HOSPITAL COURSE: After the first evaluation, patient was started on Celexa 20 mg by mouth daily every morning, folic acid, multivitamins and thiamine as per detox protocol, Neurontin 600 mg by mouth three times daily, Seroquel 100 mg by mouth daily at bedtime, and he was detoxed with methadone 2.5 mg by mouth twice daily since he was taking Suboxone. Patient did allow us to contact the Suboxone clinic. They stated that this patient is not a candidate to be on Suboxone any longer since they know of one overdose and he also had two overdoses in a few days and was admitted here in [facility]. Patient was requesting to be discharged on a daily basis. Patient was declining any offers to go to an inpatient chemical dependency and he was reporting that the only thing he needed was outpatient followup. So the plan was to discharge him today. Before discharge, he was notified that there is a warrant that has been issued. He became anxious and afraid and he stated that he wanted to stay for treatment. However, at this point, and after he was denied any symptoms, he has been observed, there is no evidence of major depressive disorder. Has been requesting to be discharged and was denying suicidal or homicidal ideation and there was no evidence of psychotic symptoms. I told the patient that he was going to be discharged as planned. Before discharge and as instructed by the Suboxone clinic, he is no longer going to have Suboxone at their clinic and they asked not to give the patient the remaining pills of Suboxone as he is a danger of overdosing, not for his suicidal thought but by the fact that he is not able to control his addiction. Therefore is discharged on 12/22/2016 in stable condition. MENTAL STATUS EXAMINATION AT DISCHARGE: Patient is dressed in casual clothes. Patient is calm and cooperative. His speech is clear, coherent with normal rate and is spontaneous. Patient has good eye contact. Mood is euthymic. Affect is appropriate and congruent with mood. Patient is oriented to time, place, person and situation. Patient maintains attention and concentration correctly. Instant recall, recent and remote memory are intact. Thought processes are coherent, logical and goal directed. Patient does not have auditory or visual hallucinations. Patient does not have paranoid, persecutory, somatic, grandiose or jewish delusion. Patient is denying suicidal or homicidal ideation. Judgment and insight are fair. DISCHARGE DIAGNOSIS: [place] I: Unspecified depressive disorder. Substance induced mood disorder. Polysubstance dependency. [place] II: Deferred. [place] III: Status post overdose. Chronic obstructive pulmonary disease (COPD). Chronic pain. Umbilical hernia. Status post intubation. MEDICATIONS AT DISCHARGE: - Celexa 20 mg by mouth daily every morning - Neurontin 600 mg by mouth three times daily - Seroquel 100 mg by mouth daily at bedtime INSTRUCTIONS TO THE PATIENT: Patient is to continue taking his medications as prescribed and followup appointments. He is advised to maintain absolute sobriety from drugs and alcohol. Patient has scheduled appointment for psychotherapy medication management, individual psychotherapy and per medical physician.
[2016-12-23] MEDS ORDERED: CIPR500T89 PO (17:56)
== END 2016-12-22 16:45 | disposition home or self-care (01) | DRG 881 ==
LOC: M PSY 17:30
PROVIDERS: ADMIT Psychiatry & Neurology Psychiatry; ATTEND Psychiatry & Neurology Psychiatry
DX: F32.9 Major depressive disorder, single episode, unspecified (principal); F19.94 Other psychoactive substance use, unspecified with psychoactive substance-induced mood disorder; Z79.899 Other long term (current) drug therapy; J44.9 Chronic obstructive pulmonary disease, unspecified; K42.9 Umbilical hernia without obstruction or gangrene; G47.00 Insomnia, unspecified; F17.200 Nicotine dependence, unspecified, uncomplicated

== ENCOUNTER 2016-12-23 14:43 | Emergency (ER) | payer MEDICARE, MEDICAID ==
[~2016-12-23] VITALS: Ht 162.6 cm; Wt 81.6 kg
[~2016-12-23 14:43] MED LIST changes: +CELE20TA PO; +NAPR375T2 PO; +NICO2GUM62 PO; +NICO2GUM8 PO
[2016-12-23] MEDS ORDERED: NAPROXEN 250 MG TAB PO ONE (16:30)
[2016-12-23] MEDS ORDERED: CIPR500T89 PO (17:56)
[2016-12-23] MEDS ORDERED: ONDANSETRON 4 MG ORAL DISINTEGRATING TAB (S0181) PO ONE (18:00)
[2016-12-23] MEDS ORDERED: CIPROFLOXACIN 500 MG TAB PO ONE (18:00)
[2016-12-23] MEDS ORDERED: cloNIDine 0.1 MG TAB PO ONE (18:00)
[2016-12-23 18:02] VITALS: BP 127/94
[2016-12-23 18:06] VITALS: BP 127/94
[2016-12-28] MEDS ORDERED: ADV250INH INH (13:24)
[2016-12-28] MEDS ORDERED: SERO1TAB2 PO (13:24)
== END 2016-12-23 18:18 | disposition home or self-care (01) ==
LOC: M ED 16:09
DX: N30.00 Acute cystitis without hematuria (principal); Z88.8 Allergy status to other drugs, medicaments and biological substances; Z79.899 Other long term (current) drug therapy; F17.210 Nicotine dependence, cigarettes, uncomplicated; E78.00 Pure hypercholesterolemia, unspecified; R55 Syncope and collapse; K59.00 Constipation, unspecified; F41.9 Anxiety disorder, unspecified; F32.9 Major depressive disorder, single episode, unspecified; F19.10 Other psychoactive substance abuse, uncomplicated; K42.9 Umbilical hernia without obstruction or gangrene

== ENCOUNTER → 2016-12-28 | Emergency (ER) | payer MEDICARE, MEDICAID ==
[~2016-12-28] VITALS: Ht 172.7 cm; Wt 72.6 kg
[~2016-12-28] MED LIST changes: +CIPR500T89 PO
[2016-12-28 14:31] LABS: MEAN CORPUSCULAR HGB CONC 33.4 g/dl (32.0-36.5); MEAN CORPUSCULAR VOLUME 95.9 fl (80.0-96.0); RED CELL DISTRIBUTION WIDTH 13.9 % (11.5-14.5); WHITE BLOOD COUNT 5.5 K/mm3 (4.0-10.0)
[2016-12-28 15:02] LABS: METHADONE URINE NEGATIVE (NEGATIVE)
[2016-12-28 15:14] LABS: ALBUMIN 3.1 GM/DL (3.2-5.2); ALKALINE PHOSPHATASE 72 U/L (45-117); ALT/SGPT 31 U/L (12-78); ANION GAP 7 MEQ/L (8-16); AST/SGOT 31 U/L (15-37); BILIRUBIN,DIRECT < 0.1 MG/DL (0.0-0.2); BILIRUBIN,TOTAL 0.1 MG/DL (0.2-1.0); BLOOD UREA NITROGEN 9 MG/DL (7-18); CALCIUM LEVEL 8.6 MG/DL (8.5-10.1); CARBON DIOXIDE LEVEL 27 MEQ/L (21-32); CHLORIDE LEVEL 112 MEQ/L (98-107); CREATININE FOR GFR 0.84 MG/DL (0.70-1.30); GLOMERULAR FILTRATION RATE > 60.0 (>60); GLUCOSE, FASTING 90 MG/DL (70-105); POTASSIUM SERUM 4.3 MEQ/L (3.5-5.1); SODIUM LEVEL 146 MEQ/L (136-145); TOTAL PROTEIN 6.2 GM/DL (6.4-8.2)
[2016-12-28 18:32] VITALS: BP 116/78
--- NOTE | 2016-12-28 20:57 | ECGEPIP ---
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
== END | disposition home or self-care (01) ==
LOC: M ED 14:12
DX: F32.9 Major depressive disorder, single episode, unspecified (principal); F11.20 Opioid dependence, uncomplicated; Z79.899 Other long term (current) drug therapy; Z88.5 Allergy status to narcotic agent; Z88.6 Allergy status to analgesic agent; F17.210 Nicotine dependence, cigarettes, uncomplicated
CPT/HCPCS: 36415; 80048; 80076; 80306; 84443; 85027; 93005; 99284; G0480

== ENCOUNTER → 2017-01-01 | Outpatient (REF) | LOC: M LAB 14:39 ==